=== PATIENT | female | born 1950 | race Caucasian/White ===

== ENCOUNTER 2024-02-13 10:29 | Outpatient (AMB) | payer MEDICARE, MEDICAID, SELFPAY ==
[2024-02-13 10:39] VITALS: BP 138/80; PULSE 70; TEMP 37; O2SAT 94; BMI 51.7
--- NOTE | 2024-02-13 10:39 | AM.OFFWIN_ITS ---
Intake Vital Signs 02/13/24 10:39 Height 5 ft 3 in Weight 292 lb BMI 51.7 BP 138/80 Blood Pressure Location Rt brachial Position Sitting Pulse 70 Pulse Source Pulse Oximeter Temp 98.6 F Temp Source Oral Pulse Oximetry (%) 94 Oxygen Delivery Method Room Air Intake Visit Reasons: EP Pain on her wrist Intake Note: pt c/o LT wrist pain. Started Tuesday Patient Tobacco Use Status: Former Tobacco user Allergies No Known Allergies Allergy (Verified 02/13/24 10:40) Do you need a note to return to daycare/school/sports/work: No HPI HPI Comments History of Present Illness Details Patient is a 73-year-old female complaining of left wrist pain. She states this started 2 days ago and is getting worse. She states the pain is worse when she tries to rest it or twist it in either direction, she also has associated weakness of the wrist. She states she has had carpal tunnel before and this is a different kind of pain, she does describe the pain as a sharp shooting pain. She states she has had open heart surgery and joint replacements and this pain is much worse. [facility] Social History Patient Tobacco Use Status: Former Tobacco user Review of Systems Const All systems reviewed & are unremarkable except as noted in HPI and below Physical Exam Vital Signs: Last Vital Signs Temp 98.6 F 02/13/24 10:39 Pulse 70 02/13/24 10:39 BP 138/80 02/13/24 10:39 Pulse Ox 94 02/13/24 10:39 Oxygen Delivery Method Room Air 02/13/24 10:39 BMI result Body Mass Index 51.7 Const General: cooperative, healthy appearing, comfortable, well developed and acute distress (Secondary to the pain in her wrist) mild Orientation/consciousness: patient oriented x3 Limitations: no limitations HEENT Head: Yes normal to inspection Ears: hearing grossly normal bilaterally General nose exam: Normal external nose present Face and sinus: Yes normal facial exam Eyes General: appearance normal, both eyes and all related structures Neck Neck: Yes normal visual inspection and Yes full ROM Resp Effort & Inspection: normal respiratory effort and able to speak in complete s entences Skin General skin exam: no rashes or lesions noted Neuro General: patient oriented x3 Extrem Left upper extremity: elbow/forearm Details: normal to inspection, normal ROM, ecchymosis (smll areas of ecchymosis and a few scabs throughout forearm, no signs of infection noted) and distal pulses intact; no tenderness, no swelling, no unusual warmth, no abrasions, no lacerations and no deformity, wrist medial Details: swelling Location: of the dorsal wrist, abnormal ROM Details: pain with active ROM Details: with extension, with flexion, with ABduction and with ADduction and pain with passive ROM Details: in extension, in flexion, in ABduction and in ADduction, radial pulse present, ulnar pulse present, Tinel's negative and Phalen's negative (Patient unable to perform due to pain); no unusual warmth, no abrasions, no lacerations, no ecchymosis and no deformity and hand (supervisor accounts receivable strength 3/5 ) Details: normal to inspection, normal capillary refill, neuromotor exam normal, neurosensory exam normal, tendon exam normal, vascular exam Details: normal capillary refill, normal ROM of fingers and no swelling; no tenderness Assessment & Plan Assessment & Plan (1) Pain and swelling of left wrist: Code(s): M25.532 - Pain in left wrist; M25.432 - Effusion, left wrist Plan: No indication for an x-ray. This does not appear to be carpal tunnel syndrome. Unclear of etiology of swelling, gave 20 mg of prednisone in office as patient was in extreme amount of pain with the swelling. Placed her in a wrist brace and we will send prednisone burst to her pharmacy. Instructed patient if the pain gets worse to go to the emergency room or to follow up with her PCP Plan see above Orders: Orders AMB Prednisone Adult Dose Today M25.432 - Effusion, left wrist, M25.532 - Pain in left wrist Medications: New prednisone 20 mg PO ONCE 1 tab 0RF wheezing M25.432 - Effusion, left wrist, M25.532 - Pain in left wrist prednisone 20 mg PO DAILY 4 tabs 0RF Coding Level of Care Code Est Pt Level 3 (30738) Diagnoses Pain and swelling of left wrist M25.532; M25.432
== END 2024-02-13 11:20 | disposition home or self-care (01) ==
PROVIDERS: Visit Provider Physician Assistant
DX: M25.532 Pain in left wrist (principal); M25.432 Effusion, left wrist

== ENCOUNTER → 2024-02-13 10:29 | Outpatient (BNVA) | payer MEDICARE, MEDICAID, SELFPAY | DX: G56.02 Carpal tunnel syndrome, left upper limb (principal); M25.532 Pain in left wrist; M25.432 Effusion, left wrist | CPT/HCPCS: 99212 ==

== ENCOUNTER 2025-03-19 10:26 | Outpatient (AMB) | payer OTHER, MEDICARE, SELFPAY ==
--- OUTSIDE RECORDS SUMMARY | 2025-03-19 10:35 | XMS_ITS | Encounter Summary ---
Author Organization [facility] Address [address] [place] [address] Care Team Providers Care Assembly Loader Name Role Phone [place] Geoffrey Bran Primary Care Provider [phone] Encounter Details Date Type Department Care Team (Late Contact Info) Description 03/19/2025 10:35 AM EDT Ancillary Procedure [facility] - [facility] [address] [facility] [address] [place] [address] Arrived Social History Tobacco Use Types Packs/Day Years Used Date Smoking Tobacco: Former Cigarettes Q uit: 05/23/1996 Smokeless Tobacco: Never Alcohol Use Standard Drinks/Week Comments Not Currently 0 (1 standard drink = 0.6 oz pur e alcohol) Interpersonal Safety Answer Date Record ed Physical Abuse Unrecognized value 07/24/2024 Verbal Abuse Unrecognized value 07/24/2024 Comments Unknown Sex and Gender Information Value Date Recorded Sex Assigned at Female 05/25/2024 12:23 PM EST Legal Sex Female 7:45 AM EST Gender Identity Female 05/25/2024 12:23 PM EST Sexual Orientation Straight 05/25/2024 12 :23 PM EST documented as of this encounter Plan of Treatment Upcoming Encounters Date Type Department Care Team (Late st Contact Info) Description 04/02/2025 8:00 AM EST Ancillary Procedure [facility] Cardiology [facility] - [facility] [address] [facility] [address] [place] [id number] 04/16/2025 9:15 AM EST Office Visit [facility] Hematology Oncology [address] [place] [address] Beckie Fuentes MD [address] [place] [address] 04/22/2025 8:10 AM EST Office Visit [facility] - [facility] [address] [place] [address] Jeremias Yu NP [address] [place] [address] [address] [place] [address] 09/11/2025 10:00 AM EDT Office Visit Pulmonology - [place] [address] [facility] [address] [place] [address] Nicky Bailey MD [address] [place] [phone] documented as of this encounter Procedures Procedure Name Priority Date/Time Associated Diagnosis Comments CARDIAC DEVICE CHECK- REMOTE- MURJ Routine 03/19/2025 10:33 AM EDT documented in this encounter Results * Cardiac device check - Remote- MURJ (03/19/2025 10:33 AM EDT) Date Time Interrogation Session [id number] CV DEVICE CHECK Type Interrogation Session Remote Scheduled CV DEVICE CHECK Implantable Pulse Generator Grape [place] CV DEVICE CHECK Implantable Pulse Generator Type IPG CV DEVICE CHECK Implantable Pulse Generator Model 2272 Assurity MRI(TM) CV DEVICE CHECK Implantable Pulse Generator Serial Number [id number] CV DEVICE CHECK Implantable Pulse Generator Implant Date 20161101 CV DEVICE CHECK Battery Remaining Percentage 22.00 CV DEVICE CHECK Battery Remaining Longevity 26.0 CV DEVICE CHECK Battery Voltage 2.920 CV D EVICE CHECK Battery [employer] Trigger 2.600 CV DEVICE CHECK Battery Status Middle of Service CV DEVICE CHECK Georgi Statistic RA Percent Paced 80.00 CV DEVICE CHECK Georgi Statistic RV Percent Paced 1.00 CV DEVICE CHECK Atrial Tachy Statistic AT/AF [place] Percent 3.00 CV DEVICE CHECK Lead Channel Sensing Intrinsic Amplitude 2.300 CV DEVICE CHECK Lead Channel Setting Sensing Sensitivity 0.30 CV DEVICE CHECK Lead Channel Impedance Value 390 CV DEVICE CHECK Lead Channel Pacing Threshold Amplitude 0.500 CV DEVICE CHECK Lead Channel Pacing Threshold Pulse Width 0.5 CV DEVICE CHECK Lead Channel RA Pacing Threshold Date 2025-03-12 CV DEVICE CHECK Lead Channel Setting Pacing Amplitude 1.500 CV DEVICE CHECK Lead Channel Setting Pacing Pulse Width 0.5 CV DEVICE CHECK Lead Channel Sensing Intrinsic Amplitude 12.000 CV DEVICE CHECK Lead Channel Setting Sensing Sensitivity 2.00 CV DEVICE CHECK Lead Channel Impedance Value 480 CV DEVICE CHECK Lead Channel Pacing Threshold Amplitude 1.000 CV DEVICE CHECK Lead Channel Pacing Threshold Pulse Width 0.5 CV DEVICE CHECK Lead Channel RV Pacing Threshold Date 2025-03-12 CV DEVICE CHECK Lead Channel Setting Pacing Amplitude 1.250 CV DEVICE CHECK Lead Channel Setting Pacing Pulse Width 0.5 CV DEVICE CHECK Georgi Setting Mode (NBG Code) DDDR CV DEVICE CHECK Georgi Setting Lower Rate Limit 60 CV DEVICE CHECK Georgi Setting AT Mode Switch Rate 180 CV DEVICE CHECK Georgi Setting Maximum Tracking Rate 120 CV DEVICE CHECK Georgi Setting Maximum Sensor Rate 120 CV DEVICE CHECK Georgi Setting PAV Delay 180 CV DEVICE CHECK Georgi Setting RIKKI Delay 150 CV DEVICE CHECK Date of Service 2025-03-28 CV DEVICE CHECK Anatomical Region Laterality Modality Device Interroga tion 03/12/2025 2:00 AM EDT Impressions 03/19/2025 10:31 AM EDT Normal Remote: No Events * Normal Device Function * Alerts or events: None * Battery: Battery is at 22%, 2.17 yrs * Sensing, impedance and thresholds reviewed * Programmed parameters reviewed * Presenting rhythm reviewed * Heart Rate Histograms reviewed * No significant changes noted Tachycardia: Mode Switch * Device High Atrial Rate event(s) triggered: 1 ongoing episode since 03/09/25 * AT/AF [place]: 3% Additional Notes: *Meds include Eliquis / Rate controlled Narrative Procedure Note Yessica Moore PA - 03/19/2025 IMPRESSION: Normal Remote: No Events * Normal Device Function * Alerts or events: None * Battery: Battery is at 22%, 2.17 yrs * Sensing, impedance and thresholds reviewed * Programmed parameters reviewed * Presenting rhythm reviewed * Heart Rate Histograms reviewed * No significant changes noted Tachycardia: Mode Switch * Device High Atrial Rate event(s) triggered: 1 ongoing episode since03/09/25 * AT/AF [place]: 3% Additional Notes: *Meds include Eliquis / Rate controlled Yessica VERMA CV IMPLANTABLE CARDIAC DEVICE [place] OCEDURES Final Result documented in this encounter Visit Diagnoses Not on filedocumented in this encounter Care Teams Assembly Loader Relationship Specialty Start Date End Date Geoffrey Parekh DO [address] [place] [address] PCP - General Family Medicine 10/24/24 documented as of this encounter
--- NOTE | 2025-03-19 10:44 | A.OFFVIS_ITS ---
Intake Visit Reasons: 6m AD Accompanied by: Friend Allergies No Known Allergies Allergy (Verified 03/19/25 10:51) Medication List - Last Reconciled 03/19/25 by Vivian Fountain CNP amiodarone 200 mg PO DAILY apixaban (Eliquis) 5 mg PO BID bisacodyl (Laxative (bisacodyl)) 10 mg PO PRN dapagliflozin propanediol (Farxiga) 5 mg PO DAILY diazepam 5 - 10 mg PO BEDTIME PRN dorzolamide 2% drps ophthalmic (eye) duloxetine 30 mg PO BID ferrous sulfate (FeroSul) 325 mg PO BID furosemide 20 mg PO DAILY isosorbide mononitrate ER mg PO BID levothyroxine 88 mcg PO DAILY lisinopril 40 mg PO DAILY memantine 10 mg PO BID 90 days metoprolol succinate ER 25 mg PO DAILY mirabegron ER (Myrbetriq) 50 mg PO DAILY mupirocin 2% 1 appl topical BID-TID omeprazole 40 mg PO BID potassium chloride ER 10 mEq PO DAILY pregabalin 75 mg PO DAILY rosuvastatin 20 mg PO DAILY travoprost 0.004% 1 drp ophthalmic (eye) BEDTIME trazodone 50 - 150 mg PO BEDTIME PRN HPI Comments Details: 74-year-old woman with h/o PTSD, obesity, [place] on nighttime oxygen and CPAP, A f ib s/p cardioversion x5 between 05/2023-05/2024 and cardiac ablation on 07/18/2024, pacemaker, HTN, migraine, and mild dementia. She was here with her long-time friend (Kala). Memory was not so good, more forgetful. Medications were being managed by [facility]. She was driving locally with her friend without issue. She was having more shakiness in her hands and jaw. Handwriting was not so neat. No functional impairment. No difficulty eating or drinking. Headaches were okay, relieved by Tylenol as needed. Walking with walker, no falls. Mood was okay. Sleep was okay, using CPAP. Needs continuous O2 2L, but did not have today as she was waiting for portable oxygen. [facility] Social History Patient Tobacco Use Status: Former Tobacco user Review of Systems Const Denies chills, Denies daytime sleepiness, Denies difficulty sleeping, Denies fatigue, Denies fever(s), Denies frequent falls, Denies headache(s), Denies increased appetite, Denies poor appetite, Denies snoring, Denies weakness, Denies weight gain and Denies weight loss Eyes Denies loss of vision ENT Denies vertigo, Denies dizziness and Denies headache(s) Card Denies chest pain at rest, Denies chest pain with activity, Denies syncope, Denies leg edema and Denies palpitations Resp Denies snoring GI Denies constipation, Denies heartburn, Denies diarrhea and Denies nausea Denies urinary frequency, Denies urinary incontinence and Denies urinary urgency Musc Denies abnormal gait, Denies numbness and Denies tingling Skin/Breast Denies dry skin and Denies rash Neuro Denies abnormal gait, Denies vertigo, Denies dizziness, Denies syncope, Denies frequent falls, Denies headache(s), Denies lack of coordination, Denies loss of vision, Reports memory loss, Denies numbness, Denies restless legs, Denies seizure-like activity, Denies tingling, Denies paresthesias, Reports tremor(s) and Denies weakness Psych Denies anxiety, Denies depression, Denies auditory hallucinations, Reports memory loss, Denies visual hallucinations and Denies suicidal ideation Endo Denies fatigue and Denies palpitations Physical Exam Const Other: General Appearance:? normal, in no acute distress. Skin:? no rashes, no significant birthmarks. Heart:? S1, S2 normal, no murmurs. Lungs:? clear anteriorly and posteriorly. Extremities:? no edema. Psych:? alert, cooperative with exam. Neuro Other: Mental Status:?Alert and awake with normal sp speech, fluency, comprehension, and affect. MMSE 29/30. Cranial Nerves:?Pupils are equal, round and reactive to light. External occular muscles are intact. Visual kellogg are full. Face is symmetrical. Facial sensations are normal. Tongue is midline. Palate elevates symmetrically. Shoulder shrugging is normal. Hearing to bedside conversation is normal. Sensory Exam:?....? Coordination:?No ataxia,?no titubation.? Gait Exam: With walker. Cerebellar Signs:?[id number] is okay. Extrapyramidal System:?No tremor, rigidity with normal facial expressions.? Pronator Drift:?Not present.? Involuntary Movements:?Mild head tremor and fine tremors of outstretched hands. Speech:?Normal.? Results Reviewed Results Reviewed: CT brain WO at [facility] in October 2019: mild MVD, especially left frontal EEG at office in Jan 2020: mild slowing EEG at office in October 2023: mild slowing with no evidence of seizure disorder Assessment & Plan Assessment & Plan (1) Mild dementia: Code(s): F03.A0 - Unspecified dementia, mild, without behavioral disturbance, psychotic disturbance, mood disturbance, and anxiety Category: Medical Qualifiers: Dementia type: unspecified type Dementia behavioral or psychological symptom: unspecified whether behavioral, psychotic, or mood disturbance or anxiety Qualified Code(s): F03.A0 - Unspecified dementia, mild, without behavioral disturbance, psychotic disturbance, mood disturbance, and anxiety Plan: Continue memantine 10mg 1 tablet twice a day. Stay physically and socially active, use walker. (2) Tremor: Code(s): R25.1 - Tremor, unspecified Category: Medical Plan: TSH level ordered. May be side effect of amiodarone. Treatment options discussed. No significant functional impairment and she was not interested in medication at this time. Follow up in 6 months or sooner if needed. (3) Insomnia: Code(s): G47.00 - Insomnia, unspecified Category: Medical Qualifiers: Insomnia type: unspecified Qualified Code(s): G47.00 - Insomnia, unspecified (4) Migraine: Code(s): G43.909 - Migraine, unspecified, not intractable, without status migrainosus Category: Medical Qualifiers: Migraine type: unspecified Status migrainosus presence: without status migrainosus Intractability: not intractable Qualified Code(s): G43.909 - Migraine, unspecified, not intractable, without status migrainosus Plan: No significant headaches. May continue Tylenol as needed. Plan . Orders: Orders TSH reflex Free T4 Today R25.1 - Tremor, unspecified Coding Level of Care Code Est Pt Level 4 (53850) Diagnoses Mild dementia, unspecified dementia type, unspecified whether behavioral, psychotic, or mood disturbance or anxiety F03.A0 Dementia type: unspecified type Dementia behavioral or psychological symptom: unspecified whether behavioral, psychotic, or mood disturbance or anxiety Tremor R25.1 Insomnia, unspecified type G47.00 Insomnia type: unspecified Migraine without status migrainosus, not intractable, unspecified migraine type G43.909 Migraine type: unspecified Status migrainosus presence: without status migrainosus Intractability: not intractable
--- OUTSIDE RECORDS SUMMARY | 2025-03-19 12:55 | XMS_ITS | Clinical Summary ---
Author Organization [facility] Address [address] [place] [address] Care Team Providers Care Clipper Machine Name Role Phone Geoffrey Parekh DO Primary Care Provider [phone] Allergies No known active allergies Medications Medication Sig Dispensed Refills Start Date End Date Status cetirizine (ZyrTEC) 10 MG tablet Take 1 tablet (10 mg total) by mouth daily. 0 Active diazePAM (VALIUM) tablet 5 mg Take 1 tablet (5 mg total) by mouth every 6 (six) hours as needed for anxiety. 0 Active dorzolamide (TRUSOPT) 2 % ophthalmic solution 1 drop 3 (three) times a day. 0 Active escitalopram (LEXAPRO) tablet 10 mg Take 1 tablet (10 mg total) by mouth daily. 0 Active [place]-3 Fatty Acids (FISH OIL) 1000 MG CAPS Take by mouth. 0 Active gabapentin (NEURONTIN) 300 MG capsule Take 1 capsule (300 mg total) by mouth 3 (three) times a day. 0 Active isosorbide mononitrate (IMDUR) 60 MG 24 hr tablet Take 1 tablet (60 mg total) by mouth daily. 0 Active levothyroxine (SYNTHROID, LEVOXYL) tablet 88 mcg Take 1 tablet (88 mcg total) by mouth every morning on an empty stomach. 0 Active lisinopril (PRINIVIL,ZESTRIL) tablet 20 mg Take 1 tablet (20 mg total) by mouth daily. 0 Active Multiple Vitamins-Minerals (MULTIVITAMIN ADULT PO) Take 1 tablet by mouth daily. 0 Active omeprazole (PriLOSEC) 40 MG capsule Take 1 capsule (40 mg total) by mouth daily. 0 Active rizatriptan (MAXALT) 10 MG tablet Take 1 tablet (10 mg total) by mouth as needed for migraine. May repeat in 2 hours if needed 0 Active rosuvastatin (CRESTOR) tablet 20 mg Take 1 tablet (20 mg total) by mouth daily. 0 Active travoprost, benzalkonium, (TRAVATAN) 0.004 % ophthalmic solution 1 drop every night at bedtime. 0 Active traZODone (DESYREL) 50 MG tablet Take 1 tablet (50 mg total) by mouth every night at bedtime. 0 Active Ascorbic Acid (VITAMIN C) 1000 MG tablet Take 1 tablet (1,000 mg total) by mouth daily. 0 Active memantine (NAMENDA) 10 MG tablet Take 1 tablet (10 mg total) by mouth 2 (two) times a day. 0 Active amiodarone (PACERONE) 200 MG tablet Take 1 tablet (200 mg total) by mouth daily. 0 Active FeroSul 325 (65 Fe) MG tablet TAKE 1 TABLET BY MOUTH EVERY MORNING WITH BREAKFAST 90 tablet 0 07/26/2023 Active Active Problems Problem Noted Date Diagnosed Date Dementia without behavioral disturbance 05/30/19 21 Fibromyalgia 11/22/2019 Gastroesophageal reflux disease 11/22/2019 Morbid obesity 11/03/2017 B12 deficiency 05/20/2017 Iron deficiency anemia due to chronic blood loss 08/19/2016 Obstructive sleep apnea 03/22/2014 Overview: Overview: cx pulmo 08/17/16 [facility] Polysomnogram: Date 05/12/2019; Wt 280#; BMI 50; SE 94%; SM 98%; REM 3%; RDI 7 (AHI 6), REM (RDI 8 - AHI 8), Central apneas 0; Obstructive apneas 3; Mixed apneas 0; hypopneas 44; RERAs 14; average oxygen saturation 90% (lowest 82% - with saturations <88% for 5% or more of study); PLMs 2. Prestudy ESS 3; 0/4 RLS symptoms. - Obstructive Sleep Apnea - mild; mostly hypopneas; without sleep related hypoventilation by 2019 polysomnogram. 07/05/2016 to 08/03/2016. CPAP@ 6-16/Average 14.5/Max 15.2. 93% compliant with using the machine for >4 hours/day. Average use is 8 hours a night with AHI 1.9. Social History Tobacco Use Types Packs/Day Years Used Date Smoking Tobacco: Former Smokeless Tobacco: Never Alcohol Use Standard Drinks/Week Comments No 0 (1 standard drink = 0.6 oz pur e alcohol) Sex and Gender Information Value Date Recorded Sex Assigned at Not on file Gender Identity Not on file Sexual Orientation Not on file Job Start Date Occupation Industry Not on file Not on file Not on file Last Filed Vital Signs Vital Sign Reading Time Taken Comments Blood Pressure 149/84 12/14/2023 9:00 AM EDT Pulse 73 12/14/2023 9:00 AM EDT Temperature 36.7 C (98 F) 12/14/2023 9:00 AM EDT Respiratory Rate - - Oxygen Saturation 95% 12/14/2023 9:00 AM EDT Inhaled Oxygen Concentration - - Weight 128.8 kg (284 lb) 12/14/2023 9:00 AM EDT Height 160 cm (5' 3 ) 05/30/2020 9:11 AM EST Body Mass Index 50.31 05/30/2020 9:11 AM EST Plan of Treatment Health Maintenance Due Date Last Done Comments Hepatitis C Screening 1949 Depression Screening 1961 Preventative Health Evaluation 1967 Colon Cancer Screening (Colonoscopy) 1994 Fall Risk Assessment 2014 Osteoporosis Screening (DEXA Scan) 2014 RSV Adult > 60+ Yrs or (1 - 1-dose 75+ series) 2024 COVID-19 Vaccine ( - season) 2025 02/24/2023 Influenza Vaccine (#1) 2025 3, 01/27/2022, 01/30/2021, Additional history exists DTap / Tdap / Td (3 - Td or Tdap) 01/23/2030 01/24/2020, 10/17/2012, 05/25/2004 Pneumococcal Vaccine Completed 01/24/2020, 11/28/2017, 09/27/2007 Shingrix-Zoster Vaccine Completed 03/24/2020, 01/23 Hepatitis B Vaccines Aged Out No long er eligible based on patient's age to complete this topic RSV Ped < 20 months Aged Out No longe r eligible based on patient's age to complete this topic Care Teams Clipper Machine Relationship Specialty Start Date End Date Geoffrey Parekh DO [address] [place] [id number] PCP - General Family Medicine 03/16/23
--- OUTSIDE RECORDS SUMMARY | 2025-03-19 12:55 | XMS_ITS | Clinical Summary ---
Author Organization [facility] Address [address] [place] [address] Phone Care Team Providers Care Evaporative Cooler Installer Name Role Phone Geoffrey Parekh DO Primary Care Provider [phone] Allergies No known active allergies Medications cetirizine (ZyrTEC) 10 mg tablet Take 1 tablet (10 mg total) by mouth daily. Active diazePAM (VALIUM) 5 mg tablet Take 1 tablet (5 mg total) by mouth every 6 (six) hours as needed for anxiety. Active dorzolamide (TRUSOPT) 2 % ophthalmic solution 1 drop 3 (three) times a day. Active ferrous sulfate 325 mg (65 mg elemental iron) tablet TAKE 1 TABLET BY MOUTH EVERY MORNING WITH BREAKFAST 4 Active levothyroxine (SYNTHROID, LEVOTHROID) 88 mcg tablet Take 1 tablet (88 mcg total) by mouth every morning on an empty stomach. Active memantine (NAMENDA) 10 mg tablet Take 1 tablet (10 mg total) by mouth 2 (two) times a day. Active omega-3 fatty acids 1,000 mg capsule Take by mouth. Activ e omeprazole (PriLOSEC) [address] capsule Take 1 capsule (40 mg total) by mouth daily. Active rizatriptan (MAXALT) 10 mg tablet Take 1 tablet (10 mg total) by mouth as needed for migraine. May repeat in 2 hours if needed Active rosuvastatin (CRESTOR) 20 mg tablet Take 1 tablet (20 mg total) by mouth daily. Active travoprost (TRAVATAN Z) 0.004 % drops 1 drop every night at bedtime. Active traZODone (DESYREL) 50 mg tablet Take 1 tablet (50 mg total) by mouth every night at bedtime. Active apixaban (ELIQUIS) 5 mg tablet Take 1 tablet (5 mg total) by mouth 2 (two) times a day. Active DULoxetine (CYMBALTA) [address] capsule Take 1 capsule (30 mg total) by mouth 2 (two) times a day. Do not crush or chew. Active potassium chloride (KLOR-CON M10) 10 mEq CR tablet Take 1 tablet (10 mEq total) by mouth 2 (two) times a day. Tablet may be swallowed whole (do not crush/chew/suc k on) OR broken in half and each half swallowed separately OR dissolved (whole tablet) in ~4 ounces of water (allow ~2 minutes to dissolve, stir well and administer immediately). Active metoprolol succinate (TOPROL-XL) 50 mg 24 hr tabletIndications :Coronary artery disease involving diomede coronary artery of diomede heart without angina pectoris,Pacemake r,Persistent atrial fibrillation (CMS/HCC V24, CMS/HCC V28),Chronic diastolic congestive heart failure (CMS/HCC V24, CMS/HCC V28) Take 1 tablet (50 mg total) by mouth 1 (one) time each day. Do not crush or chew. 90 tablet 3 5 06/04/19 26 Active spironolactone (ALDACTONE) 25 mg tablet Take 1 tablet (25 mg total) by mouth 1 (one) time each day. 30 each 5 Active dapagliflozin propanediol (Farxiga) 5 mg tablet TAKE 1 TABLET BY MOUTH DAILY 90 tablet 1 5 Active amiodarone (PACERONE) 200 mg tablet Take 1 tablet (200 mg total) by mouth 1 (one) time each day. 90 tablet 1 5 Active isosorbide mononitrate (IMDUR) 60 mg 24 hr tablet Take 1 tablet (60 mg total) by mouth 1 (one) time each day. Do not crush or chew. 90 tablet 2 5 Active furosemide (LASIX) 20 mg tablet Take 2 tablets (40 mg total) by mouth 1 (one) time each day. 180 tablet 2 Active nitroglycerin (NITROSTAT) 0.[address] 1 tablet (0.4 mg total) under the tongue every 5 (five) minutes if needed for chest pain. 100 tablet 1 5 Active Active Problems Problem Noted Date Diagnosed Date Acute UTI 11/29/2024 Benzodiazepine dependence ([facility] V24, [facility] V28) 11/29/2024 Colon polyp 11/29/2024 Dysuria 11/29/2024 Greater trochanteric bursitis of left hip 2024 Hypokalemia 11/29/2024 Left wrist pain 11/29/2024 Osteopenia 11/29/2024 Rhinitis 11/29/2024 Pulmonary hypertension ([facility] V24, [facility] V28 ) 10/17/2024 (HFpEF) heart failure with p reserved ejection fraction ([facility] V24, [facility] V28) 08/13/2024 Overview (10/30/2024): September 2024- Echocardiogram showed the left ventricle is normal in size, wall thickness and systolic function. The ejection fraction is 65-70%. No regional wall motion abnormalities seen. Normal diastolic function. The right ventricle is normal in size and function. No significant valve disease. Assessment & Plan (10/30/2024 12:19 PM EDT): Echocardiogram from September 2024 showed preserved LV systolic function and no diastolic dysfunction. Compensated on exam. Continue with dapagliflozin, furosemide, isosorbide mononitrate and metoprolol. Consider switching Metoprolol to propranolol if essential tremor becomes limiting for the patient. We reviewed heart failure management including low-sodium diet, symptom surveillance, daily weights and medication compliance. Orders: Hospital bed Lower extremity cellulitis 08/13/2024 Class 3 severe obesity with body mass index (BMI) of 50.0 to 59.9 in adult ([facility] V24, [facility] V28) 08/13/2024 Mixed hyperlipidemia 08/13/2024 Stage 3a chronic kidney dise ase (CKD) ([facility] V24, [facility] V28) 08/13/2024 Dyspnea, unspecified type 07/24/2024 Acute CHF (CMS/HCC V24, CMS/HCC V28) 07/23/2024 Hip pain 07/02/2024 PAC (premature atrial contraction) 07/02/2024 Right shoulder pain 07/02/2024 Multiple joint pain 06/29/2024 A-fib (CMS/HCC V24, CMS/HCC V28) 06/19/2024 Diaphoresis 04/04/2024 Fatigue 04/04/2024 Groin abscess 04/04/2024 Low back pain 04/04/2024 CRISTIN (generalized anxiety disorder) 04/03/2024 S/P CABG (coronary artery bypass graft) 04/03/20 IFG (impaired fasting glucose) 04/03/2024 Intention tremor 04/03/2024 Rash 04/03/2024 Status cardiac pacemaker 04/03/2024 Varicose veins of both lower extremities 024 CAD (coronary artery disease) 02/29/2024 Overview (06/01/2024): 1997 - coronary artery disease status post four-vessel coronary artery bypass with VERNON to LAD, ROBERT to PDA, SVG to OM1 and SVG to OM 2 2015 - negative exercise Nuclear stress test 2021 - negative Regadenoson Nuclear stress test Assessment & Plan (10/30/2024 12:19 PM EDT): Last Nuclear stress test was negative. Echocardiogram from September 2024 showed ejection fraction 60-65% with no wall motion abnormalities. No anginal symptoms. Continue with aspirin, metoprolol, dapagliflozin, isosorbide, furosemide, spironolactone, fish oil and rosuvastatin. We discussed risk reduction through lifestyle choices including healthy diet, routine exercise and weight management. Orders: Hospital bed Assessment & Plan (06/17/2024 12:21 AM EST): Assessment & Plan (06/01/2024 1:54 PM EST): CABG in 1997. Last Nuclear stress test in 2021 was with normal perfusion. Echocardiogram from July 2023 showed preserved LV systolic function LVEF 55- 65%. No anginal symptoms. Continue with apixaban, rosuvastatin, increased dose of metoprolol, furosemide, dapagliflozin, and isosorbide mononitrate. We discussed risk reduction through lifestyle choices including healthy diet, routine exercise and weight management. Orders: Transthoracic echocardiogram (TTE) complete with PRN contrast, bubble, strain, and 3D order panel; Future perflutren lipid microsphere (DEFINITY) 1.3 mL in sodium chloride 0.9% 8.7 mL injection metoprolol succinate (TOPROL-XL) 50 mg 24 hr tablet; Take 1 tablet (50 mg total) by mouth 1 (one) time each day. Do not crush or chew. Essential hypertension, benign 02/29/2024 Assessment & Plan (10/30/2024 11:12 AM EDT): Controlled. Continue with furosemide, isosorbide mononitrate and metoprolol. Assessment & Plan (06/01/2024 1:54 PM EST): Controlled. Continue with furosemide, isosorbide mononitrate and metoprolol. High cholesterol 02/29/2024 Assessment & Plan (06/01/2024 1:54 PM EST): September 2022 - LDL 71. Continue with rosuvastatin. Hypothyroid 02/29/2024 Migraines 02/29/2024 Pacemaker 02/29/2024 Overview (05/31/2024): [employer] MRI compatible dual chamber pacemaker secondary to symptomatic bradycardia - mri compatabile Assessment & Plan (10/30/2024 11:12 AM EDT): Functioning well. Last device check reviewed. Continue with device clinic monitoring protocol. Orders: Hospital bed Assessment & Plan (06/01/2024 1:54 PM EST): Pacemaker working well on last device check from early May 2024. [facility]. Orders: metoprolol succinate (TOPROL-XL) 50 mg 24 hr tablet; Take 1 tablet (50 mg total) by mouth 1 (one) time each day. Do not crush or chew. GERD (gastroesophageal reflux disease) Chronic diastolic congestive heart failure (CMS/HCC V24, CMS/HCC V28) 11/16/2022 Overview (10/30/2024): September 2024- Echocardiogram showed the left ventricle is normal in size, wall thickness and systolic function. The ejection fraction is 65-70%. No regional wall motion abnormalities seen. Normal diastolic function. The right ventricle is normal in size and function. No significant valve disease. Assessment & Plan (06/17/2024 12:21 AM EST): Assessment & Plan (06/01/2024 1:54 PM EST): Echocardiogram from July 2023 showed preserved LV systolic function and no diastolic dysfunction. Aside from lower extremity edema, she appears compensated on exam. Edema likely secondary to venous insufficiency. Continue with dapagliflozin, furosemide, isosorbide mononitrate and metoprolol. Consider adding Entresto in future with continued breathlessness and elevated blood pressures. Patient reports feeling better on higher doses of amiodarone. I suspect she responded to the lower heart rates and therefore I will trial her on a higher dose of metoprolol. We will update the echocardiogram. We reviewed heart failure management including low-sodium diet, symptom surveillance, daily weights and medication compliance. Orders: metoprolol succinate (TOPROL-XL) 50 mg 24 hr tablet; Take 1 tablet (50 mg total) by mouth 1 (one) time each day. Do not crush or chew. Atrial fibrillation (CMS/HCC V24, CMS/HCC V28) 0 11/08/2022 Overview (10/30/2024): October 2022 - FORD cardioversion with recurrent atrial fibrillation status post repeat cardioversion with initiation of Amiodarone June 2024- underwent Afib ablation with PVI September 2024- Echo showed the left atrium is mildly dilated Assessment & Plan (10/30/2024 12:19 PM EDT): Persistent atrial fibrillation status post ablation. Symptomatic. CHADSVASc - 6. Continue eliquis, metoprolol, and amiodarone. Consider switching Metoprolol to propranolol if essential tremor becomes limiting for the patient. Orders: Hospital bed Assessment & Plan (06/17/2024 12:21 AM EST): Orders: ECG 12 lead Assessment & Plan (06/01/2024 1:54 PM EST): Paroxysmal atrial fibrillation. Symptomatic. CHADSVASc - 6. Continue with metoprolol and apixaban. Recent repeat cardioversion and now on amiodarone 200mg daily. Seen by Dr. Collier and now awaiting ablation. Orders: Transthoracic echocardiogram (TTE) complete with PRN contrast, bubble, strain, and 3D order panel; Future perflutren lipid microsphere (DEFINITY) 1.3 mL in sodium chloride 0.9% 8.7 mL injection metoprolol succinate (TOPROL-XL) 50 mg 24 hr tablet; Take 1 tablet (50 mg total) by mouth 1 (one) time each day. Do not crush or chew. Glaucoma 06/17/2022 Insomnia 06/17/2022 OAB (overactive bladder) 05/04/2021 Overview (02/29/2024): Dr. Henning Prediabetes 05/04/2021 Mild dementia ([facility] V24, [facility] V28) 021 Overview (02/29/2024): Dr. Bernard Dementia without behavioral disturbance ([facility] V24, [facility] V28) 05/30/2020 Fibromyalgia 11/22/2019 Gastroesophageal reflux disease 11/22/2019 Morbid obesity ([facility] V24, [facility] V28) 2017 Assessment & Plan (06/01/2024 1:54 PM EST): BMI 53.77 - in future we should consider GLP1. Bilateral carpal tunnel syndrome 08/22/2017 Overview (02/29/2024): 08/22/2017 - bilateral depo-medrol 20 mg injections Hiatal hernia 08/01/2017 B12 deficiency 05/20/2017 Iron deficiency anemia due to chronic blood loss 08/19/2016 Generalized osteoarthritis 02/20/2015 Obstructive sleep apnea 03/22/2014 Overview (02/09/2024): cx pulmo 08/17/16 [facility] Polysomnogram: Date 05/12/2019; Wt 280#; BMI 50; [...] 8 hours a night with AHI 1.9. Obstructive sleep apnea 03/22/2014 Overview (02/29/2024): UNTREATED (Apr 2021, FEB 2022) cx pulmo 08/17/16 [facility] Polysomnogram: Date 05/12/2019; Wt 280#; BMI 50; [...] 8 hours a night with AHI 1.9. Anxiety 10/23/2013 Resolved Problems Problem Noted Date Diagnosed Date Resolved Date Acute on chronic heart failu re with preserved ejection fraction (CMS/HCC V24, CMS/HCC V28) 10/26/2023 06/01/2024 Diastolic dysfunction 06/17/20222024 Encounters Date Type Department Care Team Description 03/19/2025 10:35 AM EDT Ancillary Procedure [facility] [address] [place] [phone] Arrived 03/18/2025 Telephone [facility] [address] [place] [address] Fabio Forman MD 03/14/2025 Telephone [facility] [address] [facility] [address] [place] [address] Jeremias Yu NP 03/13/2025 10:45 AM EDT Office Visit Pulmonology - [place] [address] [place] [phone] Nicky Bailey MD Hypoxemia (Primary Dx); Chronic a-fib (CMS/HCC V24, CMS/HCC V28); Morbid obesity (CMS/HCC V24, CMS/HCC V28); Essential hypertension, benign 03/12/2025 11:35 AM EDT Ancillary Procedure [facility] - [address] [place] [phone] 03/12/2025 Telephone [facility] - [address] [place] [phone] Rochelle Pedro NP 03/01/2025 Telephone [facility] [address] [place] [address] Fabio Forman MD 02/25/2025 Results Follow-Up [facility] [address] [place] [address] Jeremias Yu NP 02/20/2025 Telephone [facility] [address] [place] [phone] Fabio Forman MD 01/31/2025 Telephone [facility] [address] [place] [phone] Jeremias Yu NP 01/16/2025 Telephone [facility] [address] [place] [phone] Fabio Forman MD 12/20/2024 6:15 AM EDT Ancillary Procedure [facility] - [address] [place] [phone] 12/18/2024 Telephone Pulmonology - [place] [address] [place] [phone] Nicky Bailey MD from Last 3 Months Immunizations Immunization Administration Dates Next Due Influenza trivalent, 0.5mL ( Fluzone High-dose) 65yo and older 02/24/2023,01/27/2022,01/30/2021,02/28,01/26/2017 Influenza trivalent, 0.5mL, preservative free (Fluarix; FluLaval; Fluzone) ages 6mo and older (Afluria) 3 years and older 01/24/2020,01/27/2016 Influenza trivalent, with pr eservative (Fluzone; Afluria) 6mo and older 02/23/2015,02/09/2014,04/29/2006 Influenza, Unspecified 02/24/2023,03/07/2007 Moderna Covid-19 Bivalent, O riginal + Ba.1 (Non-US Tradename Spikevax Bivalent) 02/19/2022 Moderna SARS-CoV-2 COVID-19, mRNA, LNP-S, preservative free 07/25/2020,06/27/2020 Pfizer Covid-19 Bivalent, Or iginal + Ba.1 (Non-US Trademark COMIRNATY Bivalent) 02/19/2022 Pfizer SARS-CoV-2 COVID-19, mRNA, LNP-S, preservative free 02/24/2023 Pneumococcal conjugate 13 va lent (Prevnar 13, PCV13) 2mo and older 11/28/2017 Pneumococcal polysaccharide 23 valent (Pneumovax 23) 2yo and older 01/24/2020,09/27/2007 Td Tetanus diptheria (Tdvax) 7yo and older 05/25/2004 Tdap Tetanus diptheria acell ular pertussis (Boostrix; Adacel) 7yo and older 01/24/2020,10/17/2012 Zoster Live 10/01/2011 Zoster recombinant (Shingrix ) 19yo and older 03/24/2020,01/24/2020 Surgical History Surgery Date Site/Laterality Comments TOTAL KNEE ARTHROPLASTY PROCEDURE: HISTORICAL TOTAL KNEE REPLACE OTHER SURGICAL HISTORY 1975 PROCEDURE: HISTORICAL VAGINAL HYSTERECTOMY WITH BSO; COMMENT: DAVID CORONARY ARTERY BYPASS GRAFT PROCEDURE: HISTORICAL CABG CARPAL TUNNEL RELEASE Bilateral PROCEDURE: HISTORICAL CARPAL TUNNEL REL COLONOSCOPY 07/25/15 [facility] PROCEDURE: HISTORICAL COLONOSCOPY; COMMENT: hemorrhoids and end-to-side ileo ascending anastomosis; repeat in 10 yrs ESOPHAGOGASTRODUODENOSCOPY 10/11/17 [facility] PROCEDURE: TX EGD TRANSORAL BIOPSY SINGLE/MULTIPLE; COMMENT: Single duodenal AVM; mild gastritis; 10 cm HH.Normal duodenal biopsies; Normal gastric biopsies ABLATION OF DYSRHYTHMIC FOCUS DONE ON 07/18/24 w/ SR AT [facility]. Medical History Medical History Date Comments CAD (coronary artery disease) DX :CAD (coronary artery disease); COMMENT: cabg x 4 ; Dr. Forman Hypothyroid DX:Hypothyroid Essential hypertension, benign D X:Essential hypertension, benign Migraines DX:Migraines Fibromyalgia DX:Fibromyalgia High cholesterol DX:High cholest josé miguel Depression DX:Depression History of other specified c onditions presenting hazards to health DX:History of other speci fied conditions presenting hazards to health; COMMENT: cervical ca History of colonoscopy 2015 DX:Histor y of colonoscopy Normocytic anemia DX:Normocytic anemia Dyslipidemia DX:Dyslipidemia SSS (sick sinus syndrome) (C MS/HCC V24, CMS/HCC V28) DX:SSS (sick sinus syndrome) (HCC) Pacemaker DX:Pacemaker; CO MMENT: mri compatabile Hiatal hernia 06/17/2017 DX:Hiatal hernia ; COMMENT: mod to large History of endoscopy 10/11/2017 DX:History of endoscopy; COMMENT: muslu; small angiodysplastic lesion duodenum; large hiatal hernia; gastritis Snores 2017 DX:Snores; COMME NT: no susan CHF (congestive heart failur e) ([facility] [place] V24, [facility] V28) 11/16/2022 DX:CHF (congestive heart fa ilure) ([facility]) Dementia without behavioral disturbance ([facility] [place] V24, [facility] [place] V28) DX:Dementia without behavior al disturbance ([facility]) GERD (gastroesophageal reflu x disease) DX:GERD (gastroesophageal re flux disease) Atrial fibrillation ([facility] [place] V24, [facility] V28) Symptomatic bradycardia Hypertension Hyperlipidemia Morbid obesity ([facility] [place] V24, [facility] V28) Acute hypoxemic respiratory failure ([facility] [place] V24, [facility] [place] V28) Greater trochanteric bursiti s of left hip Groin abscess Angiodysplasia of colon Cognitive impairment Family History Medical History Relation Name Comments Lung cancer Brother Breast cancer Neg Hx Relation Name Status Comments Brother Social History Tobacco Use Types Packs/Day Years Used Date Smoking Tobacco: Former Cigarettes Q uit: 05/23/1996 Smokeless Tobacco: Never Tobacco Cessation:Counseling Given: Not Answered Alcohol Use Standard Drinks/Week Comments Not Currently [...] Orientation Straight 05/25/2024 12 :23 PM EST Obstetrics History Last Filed Vital Signs Vital Sign Reading Time Taken Comments Blood Pressure 141/70 03/13/2025 10:51 AM EDT Pulse 110 03/13/2025 10:51 AM EDT Temperature 36.1 C (97 F) 03/13/2025 10:51 AM EDT Respiratory Rate 20 03/13/2025 10:51 AM EDT Oxygen Saturation 92% 03/13/2025 10:51 AM EDT Inhaled Oxygen Concentration - - Weight 119 kg (263 lb) 03/13/2025 10:51 AM EDT Height 160 cm (5' 3 ) 03/13/2025 10:51 AM EDT Body Mass Index 46.59 03/13/2025 10:51 AM EDT Plan of Treatment Upcoming Encounters Date Type Department Care Team (Late st Contact Info) Description 04/02/2025 8:00 AM EST Ancillary Procedure [facility] [address] [facility] [address] [place] [phone] 04/16/2025 9:15 AM EST Office Visit [facility] Hematology Oncology [address] [place] [phone] Beckie Fuentes MD [address] [place] [address] 04/22/2025 8:10 AM EST Office Visit [facility] Cardiology [facility] [address] [facility] [address] [place] [address] Jeremias Yu NP [address] [place] [address] [address] [place] [phone] 09/11/2025 10:00 AM EDT Office Visit Pulmonology - [place] [address] [facility] [address] [place] [phone] Nicky Bailey MD [address] [place] [phone] Health Maintenance Due Date Last Done Comments Social Influencers of Health Screening 04/29/2022 Depression Screening 05/23/2024 Medicare Annual Wellness Visit 04/04/2025 04/04/2024 Falls Risk Assessment 07/26/2025 07/26/2024 COVID-19 Vaccine (8 - Moderna risk season) 2025 03/01/2025, 02/13/2024, 02/24/2023, Additional history exists Hypertension/CHF/CAD Annual BMP Blood Test 02/28/2026 02/28/2025, 02/21/2025, 11/19/2024, Additional history exists Cholesterol Screening (Lipid Panel) 10/21/2027 10/20/2022 DTaP,Tdap,and Td Vaccines (4 - Td or Tdap) 01/23/2030 01/24/2020, 10/17/2012, 05/25/2004 Osteoporosis Screening (Bone Density Screening) 09/03/2030 09/03/2020, 02/01/2018 Colorectal Cancer Screening: Colonoscopy 01/09/2034 01/10/2024 Hepatitis C Screening Completed 04/05/2016 Zoster Vaccines Completed 03/24/2020, 07/2019, 10/01/2011 Pneumococcal Vaccine: 50+ Years Completed 05/30/2023, 01/24/2020, 11/28/2017, Additional history exists RSV Immunization Adult Patients Completed 06/02/2023 Breast Cancer Screening Discontinued 01/02/20 24, 01/02/2024, 12/23/2022, Additional history exists Influenza Vaccine Completed 03/01/2025, , 02/24/2023, Additional history exists HIB Vaccines Aged Out No longer eligi ble based on patient's age to complete this topic HPV Vaccines Aged Out No longer eligi ble based on patient's age to complete this topic Hepatitis A Vaccines Aged Out No long er eligible based on patient's age to complete this topic Hepatitis B Vaccines Aged Out No long er eligible based on patient's age to complete this topic IPV Vaccines Aged Out No longer eligi ble based on patient's age to complete this topic MMR Vaccines Aged Out No longer eligi ble based on patient's age to complete this topic Meningococcal ACWY Vaccine Aged Out N o longer eligible based on patient's age to complete this topic Meningococcal B Vaccine Aged Out No l onger eligible based on patient's age to complete this topic RSV Immunization Patients Under 20 months Aged Out No longer eligible based on patient's age to complete this topic Varicella Vaccines Aged Out No longer eligible based on patient's age to complete this topic Medical Devices Implanted Type Area Sugar Cane Planter Machine Operator Device Identifier Shelf Expiration Date Model / Serial / Lot Cardiac Pacemaker-11/01 Implanted:10/21 by Dominique Collier MD (Quantity not on file) Cardiac Pacemaker Left: Chest [employer] CRMD++DNU+ABBT/ STJU ASSURITY 2272 / [id number] / Abbt-Stju Assurity Mri [id number] Implanted:10/21 (Quantity not on file) Cardiac Pacemaker [employer] MRI 2272 / [id number] / Abbt-Stju 2272 Assurity Mri(Tm) [id number] Implanted:10/21 (Quantity not on file) Cardiac Pacemaker [employer]ICAL 2272 ASSURITY MRI(TM) / [id number] / Device Clsur Vascade Mvp 6-12f Fem Art - [id number] - [id number] Implanted:Qty: 1 on 07/18/2024 by Dominique Collier MD at [place] [facility] Vascular Closure Devices N/A: Chest HAEMONETICS- CARDIVA MED ITEMS 03/08/2026 [id number] / [id number] / Plug Fem Artery Closure Vascade Mvp Collagen Ster - [id number] - [id number] Implanted:Qty: 1 on 07/18/2024 by Dominique Collier MD at [facility] Vascular Grafts N/A: Chest HAEMONETICS- CARDIVA MED ITEMS 03/14/2026 [id number] / [id number] / Procedures Procedure Name Priority Date/Time Associated Diagnosis Comments CARDIAC DEVICE CHECK- REMOTE- MURJ Routine 03/19/2025 10:33 AM EDT CARDIAC DEVICE CHECK- REMOTE- MURJ Routine 03/12/2025 11:31 AM EDT BASIC METABOLIC PANEL Routine 02/28/2025 9:01 AM EDT Atrial fibrillation, unspecified type (CMS/HCC V24, CMS/HCC V28) BASIC METABOLIC PANEL Routine 02/21/2025 9:34 AM EDT Acute on chronic heart failure with preserved ejection fraction (HFpEF) (CMS/HCC V24, CMS/HCC V28) CARDIAC DEVICE CHECK- REMOTE- MURJ Routine 12/20/2024 6:10 AM EDT HM COLONOSCOPY Routine 01/10/2024 SCREENING MAMMOGRAPHY BI 2-VIEW BREAST INC CAD Routine 01/02/2024 8:11 AM EDT Encounter for screening mammogram for malignant neoplasm of breast LIPID PANEL Routine 10/20/2022 DXA BONE DENSITY STUDY 1+ SITS AXIAL SKEL Routine 09/03/2020 9:34 AM EDT Other specified disorders of bone density and structure, unspecified site HEPATITIS C SCREENING Routine 04/05/2016 from Last 3 Months or Most Recently Relevant to Health Maintenance Results * Cardiac device check - Remote- MURJ (03/19/2025 10:33 AM EDT) Only the most recent of3 resultswithin the time period is included. Date Time Interrogation Session [id number] CV DEVICE CHECK Type Interrogation Session Remote Scheduled CV DEVICE CHECK Implantable Pulse Generator Sugar Cane Planter Machine Operator [place] CV DEVICE CHECK Implantable Pulse Generator Type IPG CV DEVICE CHECK Implantable Pulse Generator Model 2272 Assurity MRI(TM) CV DEVICE CHECK Implantable Pulse Generator Serial Number [id number] CV DEVICE CHECK Implantable Pulse Generator Implant Date 20161101 CV DEVICE CHECK Battery Remaining Percentage 22.00 CV DEVICE CHECK Battery Remaining Longevity 26.0 CV DEVICE CHECK Battery Voltage 2.920 CV D EVICE CHECK Battery OFFICE ASSISTANT RECEPTIONIST Trigger 2.600 CV DEVICE CHECK Battery Status Middle of Service CV DEVICE CHECK Georgi Statistic RA Percent Paced 80.00 CV DEVICE CHECK Georgi Statistic RV Percent Paced 1.00 CV DEVICE CHECK Atrial Tachy Statistic AT/AF [place] Percent 3.00 CV DEVICE CHECK Lead Channel [...] Setting PAV Delay 180 CV DEVICE CHECK Gerogi Setting RIKKI Delay 150 CV DEVICE CHECK [...] 1 ongoing episode since 03/09/25 * AT/AF [place]: 3% Additional Notes: *Meds include Eliquis / [...] triggered: 1 ongoing episode since03/09/25 * AT/AF [place]: 3% Additional Notes: *Meds include Eliquis / Rate controlled Yessica VERMA CV IMPLANTABLE CARDIAC DEVICE TX OCEDURES Final Result * (ABNORMAL) Basic metabolic panel (02/28/2025 9:01 AM EDT) Only the most recent of2 resultswithin the time period is included. Glucose 107(H) 70 - 99 mg/dL [facility] 1 Blood Urea Nitrogen (BUN) 11 8 - 27 mg/dL [facility] 1 Creatinine 0.89 0.57 - 1.00 mg/dL [facility] 1 eGFR 68 >59 mL/min/1.7 3 [facility] 1 BUN/Creatinine Ratio 12 12 - 28 [facility] 1 Sodium 145(H) 134 - 144 mmol/L [facility] 1 Potassium 4.3 3.5 - 5.2 mmol/L [facility] 1 Chloride 101 96 - 106 mmol/L [facility] 1 Carbon Dioxide 29 20 - 29 mmol/L [facility] 1 Calcium 9.8 8.7 - 10.3 mg/dL [facility] 1 Blood Venous blood specimen / Unknown 02/28/2025 9:01 AM EDT 02/28/2025 Narrative [facility] 1 - 03/01/2025 1:06 AM EDT Performed at: [address] [facility] [address] [id number] [place] Spreader: Geri Turk MD, Phone: [phone] Jeremias Yu CHILD NUTRITION MANAGER LAB BLOOD ORDERABLES Final Result [facility] 1 * Colonoscopy (01/10/2024) Pathologist [facility] Colonoscopy no interpretation , abstracted Anatomical Region Laterality Modality Other Historical Provider HEALTH MAINTENANCE Final Result * SCREENING MAMMOGRAPHY BI 2-VIEW BREAST INC CAD (01/02/2024 8:11 AM EDT) Anatomical Region Laterality Modality Radiographic Joyce ging 12/23/2022 8:06 AM EDT Narrative 01/02/2024 5:59 PM EDT This is a summary report. The complete report is available in the patient's medical record. If you cannot access the medical record, please contact the sending organization for a detailed fax or copy. Exam: Screening mammogram Findings: Digital bilateral full-field screening mammography is performed with tomosynthesis and interpreted with the aid of computer-aided detection. Comparison is made with 12/23/2022 and as far back as 09/03/2020. Breast parenchyma is composed of scattered fibroglandular densities. No new suspicious mass, architectural distortion, or suspicious calcifications. Impression: No mammographic evidence of malignancy. BI-RADS 1 - negative Procedure Note Christina Quesada MD - 03/07/2024 This is a summary report. The complete report is available in thepatient's medical record. If you cannot access the medical record, pleasecontact the sending organization for a detailed fax or copy. Exam: Screening mammogram Findings: Digital bilateral full-field screening mammography is performedwith tomosynthesis and interpreted with the aid of computer-aideddetection. Comparison is made with 12/23/2022 and as far back as09/03/2020. Breast parenchyma is composed of scattered fibroglandular densities. Nonew suspicious mass, architectural distortion, or suspiciouscalcifications. Impression: No mammographic evidence of malignancy. BI-RADS 1 - negative Adriana Sewell MD IMG XR PROCEDURES Final Result * (ABNORMAL) Lipid panel (10/20/2022) LDL/HDL Ratio 3 0 - 4 Triglycerides 159(A) 0 - 150 mg/dL Cholesterol 163 0 - 200 mg/dL HDL 61 >=40 mg/dL LDL Cholesterol 71 0 - 100 mg/dL Blood Venous blood specimen / Unknown Historical Provider LAB BLOOD ORDERABLES Deedee l Result * DXA BONE DENSITY STUDY 1+ SITS AXIAL SKEL (09/03/2020 9:34 AM EDT) Anatomical Region Laterality Modality Bone Densitometr y 02/12/2020 10:1 8 AM EDT Narrative 09/03/2020 1:49 PM EDT BONE DENSITY (DEXA) Lumbar Spine T-score is 0.3. (SD relative to 20-29 y/o adult) Z-score is 2.5. (SD relative to age matched peers) This is considered normal by WHO criteria. Left Hip T-score is -1.5. Z-score is 0.3. This is considered osteopenia by WHO criteria. IMPRESSION: This patient is considered to have osteopenia by WHO criteria. This patient has a 13% risk of major osteoporotic fracture and a 1.7% risk of hip fracture over the next 10 years. (World Health Organization Fracture Risk Assessment) [facility] Department of Internal Medicine recommends using National Osteoporosis Foundation (NOF) guidelines in treatment decisions related to osteoporosis. NOF guidelines suggest considering treatment for postmenopausal women and men aged 50 or older presenting with the following: History of hip or vertebral fracture. T-score = -2.5 (DXA) at the femoral neck, total hip, or spine, after appropriate evaluation to exclude secondary causes. Low bone mass (T-score between -1.0 and -2.5 at the femoral neck or spine) AND a 10-year probability of a hip fracture = 3% OR a 10-year probability of a major osteoporosis-related fracture = 20% based on the [place]-adapted WHO algorithm Please note that all treatment decisions require clinical judgment and consideration of individual patient factors, including patient preferences, co-morbidities, previous drug use, risk factors not captured in the FRAX model (e.g., frailty, falls, vitamin D deficiency, increased bone turnover, interval significant decline in bone density) and possible under- or over-estimation of fracture risk by FRAX. Optional alternative screening schedule based on fredi Navarro., [facility] June 10, 2011 for patients with osteopenia (based on hip BMD T-score) is as follows: * advanced osteopenia (T scores -2.00 to -2.49), BMD testing every year * moderate osteopenia (T scores -1.50 to -1.99), BMD testing every 5 years mild osteopenia or normal BMD (T scores -1.50 and higher), BMD testing every 15 years Procedure Note Treasure Perez MD - 05/11/2022 BONE DENSITY (DEXA) Lumbar Spine T-score is 0.3. (SD relative to 20-29 y/o adult) Z-score is 2.5. (SD relative to age matched peers) This is considered normal by WHO criteria. Left Hip T-score is -1.5. Z-score is 0.3. This is considered osteopenia by WHO criteria. IMPRESSION: This patient is considered to have osteopenia by WHO criteria. Thispatient has a 13% risk of major osteoporotic fracture and a 1.7% risk of hip fracture over the next10 years. (World Health Organization Fracture Risk Assessment) [facility] Department of Internal Medicine recommendsusing National Osteoporosis Foundation (NOF) guidelines in treatment decisions related toosteoporosis. NOF guidelines suggest considering treatment for postmenopausal women and menaged 50 or older presenting with the following: History of hip or vertebral fracture. T-score = -2.5 (DXA) at the femoral neck, total hip, or spine, afterappropriate evaluation to exclude secondary causes. Low bone mass (T-score between -1.0 and -2.5 at the femoral neck or spine)AND a 10-year probability of a hip fracture = 3% OR a 10-year probability of a majorosteoporosis-related fracture = 20% based on the [place]-adapted WHO algorithm Please note that all treatment decisions require clinical judgment andconsideration of individual patient factors, including patient preferences, co- morbidities,previous drug use, risk factors not captured in the FRAX model (e.g., frailty, falls, vitaminD deficiency, increased bone turnover, interval significant decline in bone density) andpossible under- or over-estimation of fracture risk by FRAX. Optional alternative screening schedule based on fredi Navarro., [facility] for patients with osteopenia (based on hip BMD T-score) is as follows: * advanced osteopenia (T scores -2.00 to -2.49), BMD testing every year * moderate osteopenia (T scores -1.50 to -1.99), BMD testing every 5years mild osteopenia or normal BMD (T scores -1.50 and higher), BMD testingevery 15 years Doreen Donahue DO IM DXA PROCEDURE S Final Result * Hepatitis C Screening (04/05/2016) [facility] Hepatitis C Screening abstracted Historical Provider HEALTH MAINTENANCE Final Result from Last 3 Months or Most Recently Relevant to Health Maintenance Insurance [place]ICA[place] - [place] [facility] [employer] MEDICARE Advance Directives Documents on File Type Date Recorded Patient Signal Technician Expl anation Health Care Decision (hx) 05/10/2022 HE ALTH CARE PROXY Health Care Decision (hx) 05/10/2022 HE ALTH CARE PROXY Health Care Decision (hx) 05/10/2022 HE ALTH CARE PROXY Health Care Decision (hx) 05/10/2022 HE ALTH CARE PROXY Health Care Decision (hx) 05/10/2022 HE ALTH CARE PROXY Health Care Decision (hx) 05/10/2022 HE ALTH CARE PROXY Health Care Decision (hx) 05/10/2022 HE ALTH CARE PROXY Health Care Decision (hx) 05/10/2022 HE ALTH CARE PROXY * Full Code - Default (Latest Code Status on File) Date Activated Date Inactivated Comments 07/23/2024 4:22 PM 07/26/2024 5:46 PM This is order is used when code status has not been discussed with the patient, or code status is otherwise unknown/unconfirmed To update the patient's code status, place a code status order. Do not modify or discontinue any currently active code status orders. Healthcare Agents on File Name Relationship Healthcare Agent [facility] Communication [facility] Agent Care Teams Evaporative Cooler Installer Relationship Specialty Start Date End Date Geoffrey Parekh DO [address] [place] [address] PCP - General Family Medicine 10/24/24
--- OUTSIDE RECORDS SUMMARY | 2025-03-19 12:55 | XMS_ITS | Encounter Summary ---
Author Organization [facility] Address [address] [place] [address] Care Team Providers Care Cassandra Developer Name Role Phone Geoffrey Parekh Primary Care Provider [phone] Reason for Visit * Reason Onset Date Comments Weight Gain 03/18/2025 Encounter Details Date Type Department Care Team (Late st Contact Info) Description 03/18/2025 Telephone [facility] [address] [place] [address] Fabio Forman MD [address] [place] [id number] Social History Tobacco Use Types Packs/Day Years [...] PM EST documented as of this encounter Progress Notes * Brittanie Aguilar RN - 03/19/2025 9:51 AM EDT I spoke to Chasity this morning. Her weight decreased to 265 lbs as of today. Pt will continue to monitor her weight and symptoms. Left a message for Chioma, visiting nurse, informing her as well. * Brittanie Aguilar RN - 03/18/2025 1:13 PM EDT Chasity Varghese is a 74 y.o. female, followed Dr. Forman/ [facility] with a history of persistent atrial fibrillation status post PVI ablation in June 2024 on eliquis, heart failure with preserved ejection fraction and most recent echo showing ejection fraction of 60-65%, coronary artery disease status post four vessel CABG, chronic diastolic heart failure, Symptomatic bradycardia status post permanent pacemaker in 2016, hypothyroidism, morbid obesity, early onset dementia, fibromyalgia, [place] on CPAP, hyperlipidemia and essential hypertension. Patient's nurse, Chioma called to report a rapid weight gain. I spoke to Chioma. The patient's lungs are clear, shortness of breath on exertion is not worsening, and chronic BLE edema is not worse. I confirmed the patient's weight and vitals as outlined below. I spoke to Chasity directly as well who denies symptoms, including worsening SOB and edema, orthopnea, PND, chest discomfort, and abdominal bloating. She reports compliance with a low sodium diet and drinks 40 fluid ounces daily. Chasity also reports compliance with her cardiac medications, no missed doses, including Furosemide 40 mg daily. Please advise. 03/16/25 263 lbs 03/18/25 267 lbs, BP 110/72, O2 97% * Mis Fulton - 03/18/2025 11:50 AM EDT Chioma a visiting nurse for the patient called to report the patients weight gain. On 03/16/25 the weight was 263lbs. Today 03/18/25 the patients weight is 267lbs. Blood pressure is 110/72 and oxygen isat 97%. There is no edema and lungs are clear. Please call Chioma back. documented in this encounter Plan of Treatment Upcoming Encounters Date Type Department Care Team (Late st Contact Info) Description 04/02/2025 8:00 AM EST Ancillary Procedure [facility] Card[facility] [address] [facility] [address] [place] [phone] 04/16/2025 9:15 AM EST Office Visit [facility] Hematology Oncology [address] [place] [phone] Rd-Beckie Hughes MD [address] [place] [phone] 04/22/2025 8:10 AM EST Office Visit [address] [place] [phone] Jeremias Yu NP [address] [place] [address] [address] [place] [phone] 09/11/2025 10:00 AM EDT Office Visit Pulmonology - [place] [address] [facility] [address] [place] [phone] Nicky Bailey MD [address] [place] [phone] documented as of this encounter Visit Diagnoses Not on filedocumented in this encounter Care Teams Cassandra Developer Relationship Specialty Start Date End Date Geoffrey Parekh DO [address] [place], [place] PCP - General Family Medicine 10/24/24 documented as of this encounter
--- OUTSIDE RECORDS SUMMARY | 2025-03-19 12:56 | XMS_ITS | Encounter Summary ---
Author Organization [facility] Address [address] [place] [address] Care Team Providers Care Director Of Institutional Giving Name Role Phone ParekhGeoffrey Primary Care Provider [phone] Encounter Details Date Type Department Care Team (Late st Contact Info) Description 07/27/[address] [facility] - Main Lab [address] [place] [phone] Nohemy Alonso MD [address] [id number] Chronic atrial fibrillation, unspecified (CMS/HCC V24, CMS/HCC V28); Hypothyroidism, unspecified; Cellulitis of unspecified part of limb; Unspecified systolic (congestive) heart failure (CMS/HCC V24, CMS/HCC V28) Social History Tobacco Use Types Packs/Day Years [...] Description 04/02/2025 8:00 AM EST Ancillary Procedure [facility] [address] [facility] 154 [place] [phone] 04/16/2025 9:15 AM EST Office Visit [facility] Hematology Oncology [address] [place] [address] Beckie Fuentes MD [address] [place] [address] 04/22/2025 8:10 AM EST Office Visit [facility] Cardiology [facility] [address] [place] [address] Jeremias Yu NP [address] [place] [address] Dr Terell [address] [place] [address] 09/11/2025 10:00 AM EDT Office Visit Pulmonology - [place] 175 [facility] 200 [place] [address] Nicky Bailey MD [address] [place] [address] documented as of this encounter Procedures Procedure Name Priority Date/Time Associated Diagnosis Comments COMPLETE BLOOD COUNT Routine 07/27/2024 6:37 AM EST Chronic atrial fibrillation, unspecified (CMS/HCC) Hypothyroidism, unspecified Cellulitis of unspecified part of limb Unspecified systolic (congestive) heart failure (CMS/HCC) THYROID STIMULATING HORMONE Routine 07/27/2024 6:37 AM EST Chronic atrial fibrillation, unspecified (CMS/HCC) Hypothyroidism, unspecified Cellulitis of unspecified part of limb Unspecified systolic (congestive) heart failure (CMS/HCC) MAGNESIUM Routine 07/27/2024 6:37 AM EST Chronic atrial fibrillation, unspecified (CMS/HCC) Hypothyroidism, unspecified Cellulitis of unspecified part of limb Unspecified systolic (congestive) heart failure (CMS/HCC) FOLATE Routine 07/27/2024 6:37 AM EST Chronic atrial fibrillation, unspecified (CMS/HCC) Hypothyroidism, unspecified Cellulitis of unspecified part of limb Unspecified systolic (congestive) heart failure (CMS/HCC) VITAMIN B12 Routine 07/27/2024 6:37 AM EST Chronic atrial fibrillation, unspecified (CMS/HCC) Hypothyroidism, unspecified Cellulitis of unspecified part of limb Unspecified systolic (congestive) heart failure (CMS/HCC) BASIC METABOLIC PANEL Routine 07/27/2024 6:37 AM EST Chronic atrial fibrillation, unspecified (CMS/HCC) Hypothyroidism, unspecified Cellulitis of unspecified part of limb Unspecified systolic (congestive) heart failure (CMS/HCC) documented in this encounter Results * Thyroid stimulating hormone (07/27/2024 6:37 AM EST) Pathologist [facility] TSH 0.86 0.40 - 4.00 mcIU/mL LAB CHEMISTRY METHOD 07/27/2024 9:59 AM EST [facility] Blood Venous blood specimen / Unknown Venipuncture / Unknown 07/27/2024 6:37 AM EST 07/27/2024 9:05 AM EST us Nohemy Alonso MD LAB BLOOD ORDERABLES Fin al Result [facility] [address] [place] [address], * Vitamin B12 (07/27/2024 6:37 AM EST) Pathologist [facility] Vitamin B-12 336 250 - 900 pcg/mL LAB CHEMISTRY METHOD 07/27/2024 10:14 AM EST [facility] Blood Venous blood specimen / Unknown Venipuncture / Unknown 07/27/2024 6:37 AM EST 07/27/2024 9:05 AM EST Nohemy Alonso MD LAB BLOOD ORDERABLES Fin al Result Performing Organization Address [facility] de Phone Number [facility] [address] [place] [address], [place] [phone] * (ABNORMAL) Folate (07/27/2024 6:37 AM EST) [facility] Folate 18.4(H) 2.8 - 17.0 ng/ml LAB CHEMISTRY METHOD 07/27/2024 10:14 AM EST [facility] Blood Venous blood specimen / Unknown Venipuncture / Unknown 07/27/2024 6:37 AM EST 07/27/2024 9:05 AM EST Nohemy Alonso MD LAB BLOOD ORDERABLES Fin al Result Performing Organization Address [facility] de Phone Number [facility] [address] [place] [address], [place] [phone] * Magnesium (07/27/2024 6:37 AM EST) [facility] Magnesium 1.9 1.9 - 2.6 mg/dL LAB CHEMISTRY METHOD 07/27/2024 9:52 AM EST [facility] Blood Venous blood specimen / Unknown Venipuncture / Unknown 07/27/2024 6:37 AM EST 07/27/2024 9:05 AM EST Nohemy Alonso MD LAB BLOOD ORDERABLES Fin al Result Performing Organization Address [facility] Co de Phone Number [facility] [address] [place] [address], [place] [phone] * (ABNORMAL) Basic metabolic panel (07/27/2024 6:37 AM EST) Sodium 140 133 - 145 mmol/L LAB CHEMISTRY METHOD 07/27/2024 9:52 AM [facility] Potassium 3.9 3.5 - 5.5 mmol/L LAB CHEMISTRY METHOD 07/27/2024 9:52 AM [facility] Chloride 103 96 - 110 mmol/L LAB CHEMISTRY METHOD 07/27/2024 9:52 AM [facility] CO2 29 21 - 32 mmol/L LAB CHEMISTRY METHOD 07/27/2024 9:52 AM [facility] Anion Gap 8 3 - 11 LAB CHEMISTRY METHOD 07/27/2024 9:52 AM [facility] Glucose 124(H) 70 - 100 mg/dL LAB CHEMISTRY METHOD 07/27/2024 9:52 AM [facility] BUN 16 5 - 25 mg/dL LAB CHEMISTRY METHOD 07/27/2024 9:52 AM [facility] Creatinine 0.74 0.50 - 1.10 mg/dL LAB CHEMISTRY METHOD 07/27/2024 9:52 AM [facility] eGFR 84 >=60 mL/min/1. 73m2 LAB CHEMISTRY METHOD 07/27/2024 9:52 AM [facility] Comment:Calculation based on the Chronic Kidney Disease Epidemiology Collaboration (CKD-EPI) equation refit without adjustment for race. BUN/Creatinine Ratio 21.6 LAB CHEMISTRY METHOD 07/27/2024 9:52 AM [facility] Calcium 8.9 8.5 - 10.5 mg/dL LAB CHEMISTRY METHOD 07/27/2024 9:52 AM [facility] Blood Venous blood specimen / Unknown Venipuncture / Unknown 07/27/2024 6:37 AM EST 07/27/2024 9:05 AM EST us Nohemy Alonso MD LAB BLOOD ORDERABLES Fin al Result [facility] [address] [place] [address], * (ABNORMAL) Complete blood count (07/27/2024 6:37 AM EST) [facility] WBC 6.7 4.8 - 10.8 K/mcL LAB HEMETOLOGY METHOD 07/27/2024 9:28 AM [facility] RBC 3.60(L) 3.80 - 4.80 M/mcL LAB HEMETOLOGY METHOD 07/27/2024 9:28 AM [facility] Hemoglobin 11.2(L) 11.5 - 16.0 g/dL LAB HEMETOLOGY METHOD 07/27/2024 9:28 AM [facility] Hematocrit 35.9 35.0 - 47.0 % LAB HEMETOLOGY METHOD 07/27/2024 9:28 AM [facility] MCV 100.8(H) 79.0 - 98.0 FL LAB HEMETOLOGY METHOD 07/27/2024 9:28 AM [facility] MCH 31.5 27.0 - 32.0 pcg LAB HEMETOLOGY METHOD 07/27/2024 9:28 AM [facility] MCHC 31.2(L) 32.0 - 37.0 g/dL LAB HEMETOLOGY METHOD 07/27/2024 9:28 AM [facility] RDW 15.2(H) 11.0 - 15.0 % LAB HEMETOLOGY METHOD 07/27/2024 9:28 AM [facility] Platelets 251 130 - 400 K/mcL LAB HEMETOLOGY METHOD 07/27/2024 9:28 AM [facility] MPV 11.5(H) 7.0 - 11.0 FL LAB HEMETOLOGY METHOD 07/27/2024 9:28 AM [facility] NRBC 0.0 <1.0 % LAB HEMETOLOGY METHOD 07/27/2024 9:28 AM EST [facility] NRBC Absolute 0.00 <0.10 K/mcL LAB HEMETOLOGY METHOD 07/27/2024 9:28 AM EST [facility] Blood Venous blood specimen / Unknown Venipuncture / Unknown 07/27/2024 6:37 AM EST 07/27/2024 9:05 AM EST us Nohemy Alonso MD LAB BLOOD ORDERABLES Fin al Result [facility] [address] [place] [address], documented in this encounter Visit Diagnoses Diagnosis Chronic atrial fibrillation, unspecified (CMS/HCC V24, CMS/HCC V28) Hypothyroidism, unspecified Cellulitis of unspecified part of limb Unspecified systolic (congestive) heart failure (CMS/HCC V24, CMS/HCC V28) Encounter for adjustment or management of cardiac device documented in this encounter Care Teams Director Of Institutional Giving Relationship Specialty Start Date End Date [facility] [place] [place] PCP - General Family Medicine 10/24/24 documented as of this encounter
--- OUTSIDE RECORDS SUMMARY | 2025-03-19 12:56 | XMS_ITS | Encounter Summary ---
Author Organization [facility] Address [address] [place] [address] Care Team Providers Care Installation Drafter Name Role Phone Geoffrey Parekh Primary Care Provider [phone] Reason for Visit * Reason Onset Date Comments Cardiac Clearance 03/14/2025 Encounter Details Date Type Department Care Team (Late st Contact Info) Description 03/14/2025 Telephone [facility] [address] [place] [address] Jeremias Yu NP [address] [place] [address] Dr Figueredo [address] [place] [phone] Social History Tobacco Use Types Packs/Day Years [...] as of this encounter Progress Notes * Ryann Lanier MA - 03/18/2025 3:28 PM EDT Form and last office visit placed on [facility] desk. * Ryann Lanier MA - 03/14/2025 4:56 PM EDT Noted. Waiting for fax. * Agata Booker - 03/14/2025 2:48 PM EDT Silvia from [facility] called and stated that she is going to fax over a cardiacclearance letter, as the patient is having cataract surgery. Silvia said she would like it to be filled out and sent back when completed. Their fax number is [phone]. documented in this encounter Plan of Treatment Upcoming Encounters Date Type Department Care Team (Late st Contact Info) Description 04/02/2025 8:00 AM EST Ancillary Procedure [facility] Cardiology [facility] [address] [facility] [address] [place] [address] 04/16/2025 9:15 AM EST Office Visit [facility] Hematology Oncology [address] [place] [phone] Beckie Fuentes MD [address] [place] [phone] 04/22/2025 8:10 AM EST Office Visit [facility] Cardiology [facility] [address] [facility] [address] [place] [phone] Jeremias Yu NP [address] [place] [address] Dr Figueredo [address] [place] [address] 09/11/2025 10:00 AM EDT Office Visit Pulmonology - [place] [address] [facility] [address] [place] [address] Nicky Bailey MD [address] [place] [address] documented as of this encounter Visit Diagnoses Not on filedocumented in this encounter Care Teams Installation Drafter Relationship Specialty Start Date End Date [facility] [place] [place] PCP - General Family Medicine 10/24/24 documented as of this encounter
--- OUTSIDE RECORDS SUMMARY | 2025-03-19 12:56 | XMS_ITS | Encounter Summary ---
Author Organization [facility] Address [address] [place] [address] Care Team Providers Care Nutritionalist Name Role Phone Geoffrey Parekh Primary Care Provider [phone] Encounter Details Date Type Department Care Team (Late st Contact Info) Description 08/02/2024 Lab Requisition [facility] - Main Lab 299 [facility] [place] [phone] Nohemy Alonso MD [address] [id number] Chronic atrial fibrillation, unspecified (CMS/HCC V24, CMS/HCC V28) Social History Tobacco [...] Description 04/02/2025 8:00 AM EST Ancillary Procedure [facility] Cardiology [facility] [address] [place] [address] 04/16/2025 9:15 AM EST Office Visit [facility] Hematology Oncology [address] [place] [phone] Beckie Fuentes MD [address] [place] [address] 04/22/2025 8:10 AM EST Office Visit [facility] Cardiology [facility] [address] [place] [address] Jeremias Yu NP [address] [place] [address] Te[address] [place] [address] 09/11/2025 10:00 AM EDT Office Visit Pulmonology - [address] [facility] [address] [place] [address] Nicky Bailey MD [address] [place] [address] documented as of this encounter Visit Diagnoses Diagnosis Chronic atrial fibrillation, unspecified (CMS/HCC V24, CMS/HCC V28) Encounter for adjustment or management of cardiac device documented in this encounter Care Teams Nutritionalist Relationship Specialty Start Date End Date Geoffrey [facility] [place] [place] PCP - General Family Medicine 10/24/24 documented as of this encounter
--- OUTSIDE RECORDS SUMMARY | 2025-04-07 20:00 | XMS_ITS | Clinical Summary ---
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 Active 10-03 00:00: 00 ACUTE RESPIRATORY FAILURE WITH HYPOXIA Active 10-17 00:00: 00 ACUTE ON CHRONIC DIASTOLIC (CONGESTIVE) HEART FAILURE Active 10-10 00:00: 00 PAROXYSMAL ATRIAL FIBRILLATION Active 10-17 00:00: 00 PRESENCE OF AORTOCORONAR Y BYPASS GRAFT Active 10-17 00:00: 00 HYPERLIPIDEM IA, UNSPECIFIED Active 10-17 00:00: 00 ESSENTIAL (PRIMARY) HYPERTENSION Active 10-17 00:00: 00 ATHSCL HEART DISEASE OF [place] CORONARY ARTERY W/O ANG PCTRS Active 10-10 00:00: 00 HYPOXEMIA Active 10-10 00:00: 00 HEART FAILURE, UNSPECIFIED Active 10-10 00:00: 00 Allergies, Adverse Reactions, Alerts Allergy Name Allergy Type Status Severity Reaction(s) Onset Date Inactive Date Treating Clinician Comments NKA Propensity to adverse reactions Active 2024-09 12:30:0 0 Medications Ordered Medication Name Filled Medication Name Start Date Stop Date Current Medication? Ordering Clinician Indication Dosage Frequency Signature (SIG) Comments Components levothyroxi ne 88 mcg tablet 3 00:00: 00 Yes [id number] Per instruc tions DAILY Per instructio ns DAILY (route: oral) Med Classific ation: Endocrine Eliquis 5 mg tablet 07-20 00:00: 00 Yes [id number] Per instruc tions TWICE DAILY Per instructio ns TWICE DAILY (route: oral) Med Classific ation: Hematolog ical Agents potassium chloride ER 10 mEq capsule,ext ended release 07-20 00:00: 00 Yes [id number] Per instruc tions DAILY Per instructio ns DAILY (route: oral) Med Classific ation: Electroly te Balance-N utritiona l Products diazepam 5 mg tablet 07-15 00:00: 00 Yes [id number] Per instruc tions EVERY NIGHT AT BEDTIME Per instructio ns EVERY NIGHT AT BEDTIME (route: oral) Med Classific ation: Central Nervous System Agents rosuvastati n 40 mg tablet 07-05 00:00: 00 Yes [id number] Per instruc tions DAILY Per instructio ns DAILY (route: oral) Med Classific ation: Cardiovas cular Therapy Agents dorzolamide 2 % eye drops 07-02 00:00: 00 Yes [id number] Per instruc tions TWICE DAILY FOR 3 MONTHS DIRECTED Per instructio ns TWICE DAILY FOR 3 MONTHS DIRECTED (route: ophthalmic (eye)) Med Classific ation: Ophthalmi c Agents furosemide 20 mg tablet 06-30 00:00: 00 10-11 23:59 :00 No [id number] Per instruc tions DAILY Per instructio ns DAILY (route: oral) Med Classific ation: Cardiovas cular Therapy Agents trazodone 50 mg tablet 06-30 00:00: 00 Yes [id number] Per instruc tions DAILY AT BEDTIME NEEDED Per instructio ns DAILY AT BEDTIME NEEDED (route: oral) Med Classific ation: Central Nervous System Agents Farxiga 5 mg tablet 06-27 00:00: 00 Yes [id number] Per instruc tions DAILY Per instructio ns DAILY (route: oral) Med Classific ation: Endocrine acetaminoph en 325 mg tablet 10-11 00:00: 00 Yes [id number] 2 tablet EVERY 6 HOURS 2 tablet EVERY 6 HOURS (route: oral) Med Classific ation: Analgesic , Anti-infl ammatory or Antipyret ic amiodarone 200 mg tablet 10-11 00:00: 00 Yes [id number] 1 tablet DAILY 1 tablet DAILY (route: oral) Med Classific ation: Cardiovas cular Therapy Agents ascorbic acid (vitamin C) 1,000 mg tablet 10-11 00:00: 00 Yes [id number] 1 tablet DAILY 1 tablet DAILY (route: oral) Med Classific ation: Electroly te Balance-N utritiona l Products brimonidine 0.1 % eye drops 10-11 00:00: 00 Yes [id number] 1 drops 2 TIMES DAILY 1 drops 2 TIMES DAILY (route: ophthalmic (eye)) Med Classific ation: Ophthalmi c Agents brimonidine 0.1 % eye drops 10-11 00:00: 00 Yes [id number] 1 drops 2 TIMES DAILY 1 drops 2 TIMES DAILY (route: ophthalmic (eye)) Med Classific ation: Ophthalmi c Agents budesonide 32 mcg/actuati on nasal spray 10-11 00:00: 00 Yes [id number] 1 spray DAILY 1 spray DAILY (route: nasal) Med Classific ation: Respirato ry Therapy Agents cetirizine 10 mg tablet 10-11 00:00: 00 Yes [id number] 1 tablet DAILY 1 tablet DAILY (route: oral) Med Classific ation: Respirato ry Therapy Agents cholecalcif josé miguel (vitamin D3) 50 mcg (2,000 unit) tablet 10-11 00:00: 00 Yes [id number] 1 tablet DAILY 1 tablet DAILY (route: oral) Med Classific ation: Electroly te Balance-N utritiona l Products duloxetine 30 mg capsule,del ayed release 10-11 00:00: 00 Yes [id number] 2 capsule DAILY 2 capsule DAILY (route: oral) Med Classific ation: Central Nervous System Agents ferrous sulfate 325 mg (65 mg iron) tablet 10-11 00:00: 00 Yes [id number] 1 tablet 2 TIMES DAILY 1 tablet 2 TIMES DAILY (route: oral) Med Classific ation: Electroly te Balance-N utritiona l Products fluticasone propionate 50 mcg/actuati on nasal spray,suspe nsion 10-11 00:00: 00 Yes [id number] 1 spray DAILY 1 spray DAILY (route: nasal) Med Classific ation: Respirato ry Therapy Agents furosemide 40 mg tablet 10-11 00:00: 00 11-16 23:59 :00 No [id number] 1 tablet DAILY 1 tablet DAILY (route: oral) Med Classific ation: Cardiovas cular Therapy Agents isosorbide mononitrate ER 30 mg tablet,exte nded release 24 hr 10-11 00:00: 00 11-12 23:59 :00 No [id number] 120 mg EVERY AM 120 mg EVERY AM (route: oral) Med Classific ation: Cardiovas cular Therapy Agents memantine 10 mg tablet 10-11 00:00: 00 Yes [id number] 1 tablet 2 TIMES DAILY 1 tablet 2 TIMES DAILY (route: oral) Med Classific ation: Cognitive Disorder Therapy metoprolol succinate ER 25 mg tablet,exte nded release 24 hr 10-11 00:00: 00 01-16 23:59 :00 No [id number] 1 tablet DAILY 1 tablet DAILY (route: oral) Med Classific ation: Cardiovas cular Therapy Agents multivitami n tablet 10-11 00:00: 00 Yes [id number] 1 tablet DAILY 1 tablet DAILY (route: oral) Med Classific ation: Electroly te Balance-N utritiona l Products mupirocin 2 % topical ointment 10-11 00:00: 00 Yes [id number] Per instruc tions DIRECTED Per instructio ns DIRECTED (route: topical) Med Classific ation: Dermatolo gical nitroglycer in 0.4 mg sublingual tablet 10-11 00:00: 00 Yes [id number] Per instruc tions DIRECTED Per instructio ns DIRECTED (route: sublingual ) Med Classific ation: Cardiovas cular Therapy Agents omeprazole 40 mg capsule,del ayed release 10-11 00:00: 00 Yes [id number] 1 capsule 2 TIMES DAILY 1 capsule 2 TIMES DAILY (route: oral) Med Classific ation: Gastroint estinal Therapy Agents prednisone 10 mg tablet 10-11 00:00: 00 12-12 23:59 :00 No [id number] Per instruc tions DIRECTED Per instructio ns DIRECTED (route: oral) Med Classific ation: Endocrine travoprost 0.004 % eye drops 10-11 00:00: 00 Yes [id number] 1 drops BEDTIME 1 drops BEDTIME (route: ophthalmic (eye)) Med Classific ation: Ophthalmi c Agents oxygen gas for inhalation 10-17 00:00: 00 Yes [id number] SOB 2 Liter O2 - CONTINUOUS 2 Liter O2 - CONTINUOUS (route: inhalation ) Alternate Route: O2 - NASAL CANNULA. Med Classific ation: Medical Supplies and Durable Medical Equipment (DME) Miralax 17 gram/dose oral powder 11-02 00:00: 00 Yes [id number] Per instruc tions DIRECTED Per instructio ns DIRECTED (route: oral) Med Classific ation: Gastroint estinal Therapy Agents isosorbide mononitrate ER 60 mg tablet,exte nded release 24 hr 11-12 00:00: 00 Yes [id number] 1 tablet EVERY AM 1 tablet EVERY AM (route: oral) Med Classific ation: Cardiovas cular Therapy Agents Lasix 20 mg tablet 11-14 00:00: 00 12-12 23:59 :00 No [id number] 2 tablet DIRECTED 2 tablet DIRECTED (route: oral) Med Classific ation: Cardiovas cular Therapy Agents Lasix 20 mg tablet 11-14 00:00: 00 11-16 23:59 :00 No [id number] 2 tablet DIRECTED 2 tablet DIRECTED (route: oral) Med Classific ation: Cardiovas cular Therapy Agents Lasix 20 mg tablet 11-16 00:00: 00 11-16 23:59 :00 No [id number] 3 tablet DIRECTED 3 tablet DIRECTED (route: oral) Med Classific ation: Cardiovas cular Therapy Agents Lasix 20 mg tablet 11-17 00:00: 00 11-18 23:59 :00 No [id number] 3 tablet 2 TIMES DAILY 3 tablet 2 TIMES DAILY (route: oral) Med Classific ation: Cardiovas cular Therapy Agents Lasix 40 mg tablet 11-19 00:00: 00 Yes [id number] 1 tablet EVERY AM 1 tablet EVERY AM (route: oral) Med Classific ation: Cardiovas cular Therapy Agents metoprolol succinate ER 50 mg tablet,exte nded release 24 hr 01-16 00:00: 00 Yes [id number] 1 tablet EVERY AM 1 tablet EVERY AM (route: oral) Med Classific ation: Cardiovas cular Therapy Agents triamcinolo ne acetonide 0.025 % topical cream 2024-05 00:00: 00 Yes [id number] Per instruc tions EVERY AM Per instructio ns EVERY AM (route: topical) Med Classific ation: Dermatolo gical triamcinolo ne acetonide 0.025 % topical cream 2024-05 00:00: 00 Yes [id number] Per instruc tions EVERY PM Per instructio ns EVERY PM (route: topical) Med Classific ation: Dermatolo gical Vital Signs Vital Name Observation Time Observation Value Commen ts Temperature 2025-02-08 12:34:00.000 97.5 [degF] Pulse 2025-03-15 10:27:00.000 68 /min Pulse 2025-03-06 11:04:00.000 64 /min Pulse 2025-03-04 11:21:00.000 63 /min Pulse 2025-03-01 10:24:00.000 64 /min Pulse 2025-02-27 10:54:00.000 60 /min Pulse 2025-02-18 10:22:00.000 73 /min Pulse 2025-02-15 10:49:00.000 63 /min Pulse 2025-02-13 11:21:00.000 65 /min Pulse 2025-02-11 10:40:00.000 68 /min O2 Saturation (%) 2025-03-15 10:27:00.000 97 % O2 Saturation (%) 2025-03-06 11:04:00.000 98 % O2 Saturation (%) 2025-03-04 11:21:00.000 98 % O2 Saturation (%) 2025-03-01 10:24:00.000 94 % O2 Saturation (%) 2025-02-27 10:54:00.000 97 % O2 Saturation (%) 2025-02-18 10:22:00.000 97 % O2 Saturation (%) 2025-02-15 10:49:00.000 97 % O2 Saturation (%) 2025-02-13 11:22:00.000 96 % O2 Saturation (%) 2025-02-11 10:40:00.000 98 % O2 Saturation (%) 2025-02-08 12:36:00.000 95 % Respirations 2025-03-15 10:27:00.000 20 /min Respirations 2025-03-06 11:04:00.000 20 /min Respirations 2025-03-04 11:21:00.000 22 /min Respirations 2025-03-01 10:24:00.000 22 /min Respirations 2025-02-18 10:22:00.000 22 /min Respirations 2025-02-15 10:49:00.000 22 /min Respirations 2025-02-13 11:21:00.000 22 /min Respirations 2025-02-11 10:40:00.000 22 /min Weight (lbs) 2025-03-15 10:27:00.000 263 [lb_av] Weight (lbs) 2025-03-06 11:04:00.000 261 [lb_av] Weight (lbs) 2025-03-04 11:22:00.000 264 [lb_av] Weight (lbs) 2025-03-01 10:24:00.000 264 [lb_av] Weight (lbs) 2025-02-27 11:22:00.000 270 [lb_av] Weight (lbs) 2025-02-18 10:22:00.000 264 [lb_av] Weight (lbs) 2025-02-15 10:49:00.000 262 [lb_av] Weight (lbs) 2025-02-13 11:21:00.000 263 [lb_av] Weight (lbs) 2025-02-11 10:40:00.000 261 [lb_av] Weight (lbs) 2025-02-08 12:34:00.000 262 [lb_av] Systolic Blood Pressure 2025-03-15 10:27:00.000 128 mm [Hg] Systolic Blood Pressure 2025-03-06 11:04:00.000 128 mm [Hg] Systolic Blood Pressure 2025-03-04 11:21:00.000 150 mm [Hg] Systolic Blood Pressure 2025-03-01 10:24:00.000 142 mm [Hg] Systolic Blood Pressure 2025-02-27 10:54:00.000 130 mm [Hg] Systolic Blood Pressure 2025-02-18 10:22:00.000 150 mm [Hg] Systolic Blood Pressure 2025-02-15 10:49:00.000 126 mm [Hg] Systolic Blood Pressure 2025-02-13 11:21:00.000 134 mm [Hg] Systolic Blood Pressure 2025-02-11 10:40:00.000 120 mm [Hg] Diastolic Blood Pressure 2025-03-15 10:27:00.000 82 mm [Hg] Diastolic Blood Pressure 2025-03-06 11:04:00.000 64 mm [Hg] Diastolic Blood Pressure 2025-03-04 11:21:00.000 74 mm [Hg] Diastolic Blood Pressure 2025-03-01 10:24:00.000 66 mm [Hg] Diastolic Blood Pressure 2025-02-27 10:54:00.000 68 mm [Hg] Diastolic Blood Pressure 2025-02-18 10:22:00.000 70 mm [Hg] Diastolic Blood Pressure 2025-02-15 10:49:00.000 70 mm [Hg] Diastolic Blood Pressure 2025-02-13 11:21:00.000 82 mm [Hg] Diastolic Blood Pressure 2025-02-11 10:40:00.000 68 mm [Hg] Plan of Treatment Planned Activity Planned Date Details Comments Future Scheduled Test SKILLED NU RSE TO EVALUATE PATIENT, IDENTIFY PRIMARY AND CO-MORBID CONDITIONS CODED PER CODING GUIDELINES, AND DEVELOP PATIENT SPECIFIC PLAN OF CARE THAT INCLUDES PATIENT GOAL FOR HOME HEALTH. [code = SKILLED NURSE TO EVALUATE PATIENT, IDENTIFY PRIMARY AND CO-MORBID CONDITIONS CODED PER CODING GUIDELINES, AND DEVELOP PATIENT SPECIFIC PLAN OF CARE THAT INCLUDES PATIENT GOAL FOR HOME HEALTH.] Future Scheduled Test SKILLED NU RSE TO O/A OF PATIENTS MENTAL/BEHAVIORAL STATUS, ASSESS VITAL SIGNS 3WK8 ALLOW 2 PRNS FOR MEDICATION MANAGEMENT. [code = SKILLED NURSE TO O/A OF PATIENTS MENTAL/BEHAVIORAL STATUS, ASSESS VITAL SIGNS 3WK8 ALLOW 2 PRNS FOR MEDICATION MANAGEMENT.] Future Scheduled Test SKILLED NU RSE WILL MAINTAIN SITUATIONAL AWARENESS FOR SAFETY AND WILL NOTIFY CLINICAL ART HISTORIAN AND PHYSICIAN/PROVIDER WITH ANY CHANGE IN CONDITION. [code = SKILLED NURSE WILL MAINTAIN SITUATIONAL AWARENESS FOR SAFETY AND WILL NOTIFY CLINICAL ART HISTORIAN AND PHYSICIAN/PROVIDER WITH ANY CHANGE IN CONDITION.] Future Scheduled Test SKILLED NU RSE TO REVIEW PATIENT MEDICATIONS. INSTRUCT PATIENT/CAREGIVER ON MONITORING OF EFFECTIVENESS, ADVERSE DRUG REACTIONS, SIDE EFFECTS OF ALL MEDICATIONS (PRESCRIPTION/-OTC), AND HOW AND WHEN TO REPORT PROBLEMS. [code = SKILLED NURSE TO REVIEW PATIENT MEDICATIONS. INSTRUCT PATIENT/CAREGIVER ON MONITORING OF EFFECTIVENESS, ADVERSE DRUG REACTIONS, SIDE EFFECTS OF ALL MEDICATIONS (PRESCRIPTION/-OTC), AND HOW AND WHEN TO REPORT PROBLEMS.] Future Scheduled Test SKILLED NU RSE FOR O/A OF GENERAL HEALTH STATUS OF PAIN, CARDIAC, RESPIRATORY, GASTROINTESTINAL, GENITOURINARY, SKIN, NEUROLOGIC, ENDOCRINE SYSTEMS TO IDENTIFY CHANGES ASSOCIATED WITH EXACERBATION FOR EARLY INTERVENTION OF COMPLICATIONS WEEKLY [code = SKILLED NURSE FOR O/A OF GENERAL HEALTH STATUS OF PAIN, CARDIAC, RESPIRATORY, GASTROINTESTINAL, GENITOURINARY, SKIN, NEUROLOGIC, ENDOCRINE SYSTEMS TO IDENTIFY CHANGES ASSOCIATED WITH EXACERBATION FOR EARLY INTERVENTION OF COMPLICATIONS WEEKLY] Future Scheduled Test INSTRUCTED PATIENT/CAREGIVER ON SIGNS AND SYMPTOMS, RISK FACTORS, COMPLICATIONS, AND MANAGEMENT OF ATRIAL FIBRILLATION. [code = INSTRUCTED PATIENT/CAREGIVER ON SIGNS AND SYMPTOMS, RISK FACTORS, COMPLICATIONS, AND MANAGEMENT OF ATRIAL FIBRILLATION.] Future Scheduled Test SKILLED NU RSE FOR O/A, TEACHING, AND MANAGEMENT OF ATHSCL HEART DISEASE [code = SKILLED NURSE FOR O/A, TEACHING, AND MANAGEMENT OF ATHSCL HEART DISEASE] Future Scheduled Test SKILLED NU RSE TO ASSESS PATIENT S PSYCHOSOCIAL STATUS TO IDENTIFY POTENTIAL ISSUES THAT MAY COMPLICATE THE PROVISION OF THE PLAN OF CARE INCLUDING THE PATIENT S ABILITY TO ACCESS COMMUNITY RESOURCES AND PSYCHOSOCIAL SUPPORT SERVICES. [code = SKILLED NURSE TO ASSESS PATIENT S PSYCHOSOCIAL STATUS TO IDENTIFY POTENTIAL ISSUES THAT MAY COMPLICATE THE PROVISION OF THE PLAN OF CARE INCLUDING THE PATIENT S ABILITY TO ACCESS COMMUNITY RESOURCES AND PSYCHOSOCIAL SUPPORT SERVICES.] Future Scheduled Test SKILLED NU RSE FOR O/A AND SKILLED TEACHING RELATED TO MANAGEMENT OF DEPRESSIVE SYMPTOMS AND/OR DEPRESSION. SN TO REPORT SIGNIFICANT CHANGE IN DEPRESSIVE SYMPTOMS TO CLINICAL PROVIDER FOR EARLY INTERVENTION. [code = SKILLED NURSE FOR O/A AND SKILLED TEACHING RELATED TO MANAGEMENT OF DEPRESSIVE SYMPTOMS AND/OR DEPRESSION. SN TO REPORT SIGNIFICANT CHANGE IN DEPRESSIVE SYMPTOMS TO CLINICAL PROVIDER FOR EARLY INTERVENTION.] Goal 2024-12-05 Patient Goal - TO NOT BE SO TIRED Goal 2025-02-04 Patient Goal - LOSE WEIGHT Goal Patient Goal - LOSE WEIGHT Goal Provider Goal - A PLAN OF CARE WILL BE ESTABLISHED THAT MEETS PATIENT'S CORRECTION NEEDS AND INCLUDES PATIENT GOAL FOR HOME HEALTH. Goal Provider Goal - ALTERED MENTAL/BEHAVIORAL STATUS WILL BE IDENTIFIED PROMPTLY AND INTERVENTION INITIATED QUICKLY TO MINIMIZE ASSOCIATED RISKS THROUGHOUT CERTIFICATION PERIOD. Goal Provider Goal - PATIENT WILL REMAIN SAFE IN THE COMMUNITY AND WILL BE FREE OF DANGER TO SELF AND OTHERS THROUGHOUT THE CERTIFICATION PERIOD. Goal Provider Goal - PATIENT/CAREGIVER WILL VERBALIZE UNDERSTANDING OF EDUCATION PROVIDED ON MEDICATIONS BY THE END OF THE CERTIFICATION PERIOD. Goal Provider Goal - CHANGE IN GENERAL HEALTH STATUS WILL BE IDENTIFIED AND REPORTED TO PHYSICIAN FOR PROMPT INTERVENTION TO MINIMIZE ASSOCIATED RISKS THROUGHOUT CERTIFICATION PERIOD. Goal Provider Goal - PATIENT/CAREGIVER WILL VERBALIZE UNDERSTANDING OF SIGNS AND SYMPTOMS, COMPLICATIONS, AND MANAGEMENT OF ATRIAL FIBRILLATION THROUGHOUT THE CERTIFICATION PERIOD. Goal Provider Goal - PATIENT/CAREGIVER WILL VERBALIZE/DEMONSTRATE MANAGEMENT OF ATHSCL HEART DISEASECARDIAC DISEASE PROCESS AND EXACERBATIONS WILL BE IDENTIFIED AND PROMPTLY REPORTED THROUGHOUT THE CERTIFICATION PERIOD. Goal Provider Goal - PSYCHOSOCIAL NEEDS WILL BE IDENTIFIED AND PLAN IMPLEMENTED TO MINIMIZE RISK THROUGHOUT CERTIFICATION PERIOD. Goal Provider Goal - PATIENT WILL REMAIN SAFE WITHOUT DECOMPENSATION IN DEPRESSIVE CONDITION, WHILE MAINTAINING OPTIMAL LEVEL OF MENTAL HEALTH AND WELL BEING THROUGHOUT CERTIFICATION PERIOD. Encounters Start Date/Time End Date/Time Encounter Type Admission Type Attending [facility] Care Facility Care Department Encounter ID Discharge Date Discharge Status Discharge Condition Discharge Reason Percent Goals Met 2025-02-08 00:00:00 2025-04-08 00:00:00 Outpatient [facility]ERT[facility] [id number]
== END 2025-03-19 11:16 | disposition home or self-care (01) ==
LOC: HO.HSM 10:27
PROVIDERS: PCP Family Medicine; Referring Provider Family Medicine; Visit Provider Registered Nurse
DX: F03.A0 Unspecified dementia, mild, without behavioral disturbance, psychotic disturbance, mood disturbance, and anxiety (principal); R25.1 Tremor, unspecified; G47.00 Insomnia, unspecified; G43.909 Migraine, unspecified, not intractable, without status migrainosus
CPT/HCPCS: 99214

== ENCOUNTER 2025-03-19 10:26 | Outpatient (REF) | payer MEDICARE, SELFPAY ==
--- OUTSIDE RECORDS SUMMARY | 2025-03-19 15:03 | XMS_ITS | Encounter Summary ---
Author Organization [facility] Address [address] [place] [address] Care Team Providers Care Vocational Counselor Name Role Phone Iraj Prabhakar MD Primary Care Provider [phone] Doreen Workman DO Primary Care Pro vider Unavailable Fabio Forman MD Unavailable Adriana Sewell MD Primary Care Provider [phone] Jeremias Yu HOTEL NIGHT AUDITOR Unavailable [phone] Jocelin Cleveland NP Unavailable [phone] Geoffrey Parekh MD Primary Care Provider María vailable Encounter Details Date Type Department Care Team Description 11/14/2013 Breakdown Man Report Medical Records [address] [place] [address] Rochelle Henning MD Social History Tobacco Use Types Packs/Day Years Used Date Smoking Tobacco: Former Smokeless Tobacco: Never Comments:quit in 1996 Alcohol Use Standard Drinks/Week Comments Yes 0 (1 standard drink = 0.6 oz pur e alcohol) occ Sex Assigned at Date Recorded Not on file Job Start Date Occupation Industry Not on file Not on file Not on file documented as of this encounter Plan of Treatment Not on file documented as of this encounter Visit Diagnoses Not on filedocumented in this encounter Care Teams Vocational Counselor Relationship Specialty Start Date End Date Iraj Prabhakar MD [address] [place], [place] [phone] PCP - General Internal Medicine 06/12/13 07/03/14 Doreen Workman DO [address] [place] [address] PCP - General Internal Medicine 07/04/14 09/23/20 Adriana Sewell MD [address] [place] [address] PCP - General Internal Medicine 09/24/20 03/15/23 Geoffrey Parekh MD [address] [place] [address] PCP - General Family Practice 03/16/23 Fabio Forman MD [address] [place] [address] Specialist Cardiology 06/04/20 Jeremias Yu NP [address] [place] [address] Nurse Practitioner Cardiology 12/15/20 Jocelin Cleveland NP [address] [place] [address] Cardiology 11/05/22 documented as of this encounter
--- OUTSIDE RECORDS SUMMARY | 2025-03-19 15:03 | XMS_ITS | Encounter Summary ---
Author Organization [facility] Address [address] [place] [address] Care Team Providers Care Backend Developer Name Role Phone Iraj Prabhakar MD Primary Care Provider [phone] Doreen Workman DO Primary Care Pro vider Unavailable Fabio Forman MD Unavailable Adriana Sewell MD Primary Care Provider Jeremias Yu INFRASTRUCTURE ANALYST Unavailable [phone] Jocelin Cleveland INFRASTRUCTURE ANALYST Unavailable [phone] Geoffrey Parekh MD Primary Care Provider María vailable Reason for Visit * Reason Onset Date Comments REFERRAL 10/02/2013 Encounter Details Date Type Department Care Team Description 10/02/2013 Telephone Urology [address] [place] [address] Juan Connell MD REFERRAL Social History Tobacco Use Types Packs/Day Years Used Date Smoking Tobacco: Former Smokeless Tobacco: Never Comments:quit in 1996 Alcohol Use Standard Drinks/Week Comments Yes 0 (1 standard drink = 0.6 oz pur e alcohol) occ Sex Assigned at Date Recorded Not on file Job Start Date Occupation Industry Not on file Not on file Not on file documented as of this encounter Miscellaneous Notes * Telephone Encounter - Iraj Prabhakar MD - 10/02/2013 2:53 PM EDT Yes pt follows with DR. James Erazo to and please cancel the referral * Telephone Encounter - Breanna Hayward - 10/02/2013 12:44 PM EDT FYI-Called pt to set up appointment for a referral to Urology re: will request a referral to Urology. Reason for referral: hematuria (gross) Priority: Next Available Payor: Not third-libertarian related Pt states she has been seeing a Urologist and does not need this appt. documented in this encounter Plan of Treatment Not on file documented as of this encounter Visit Diagnoses Not on filedocumented in this encounter Care Teams Backend Developer Relationship Specialty Start Date End Date Iraj Prabhakar MD [address] [place] [address] PCP - General Internal Medicine 06/12/13 07/03/14 Doreen Workman DO [address] [place] [address] PCP - General Internal Medicine 07/04/14 09/23/20 Adriana Sewell MD [address] [place] [address] PCP - General Internal Medicine 09/24/20 03/15/23 Geoffrey Parekh MD [address] [place] [address] PCP - General Family Practice 03/16/23 Fabio Forman MD [address] [place] [address] Specialist Cardiology 06/04/20 Jeremias Yu NP [address] [place] [address] Nurse Practitioner Cardiology 12/15/20 Jocelin Cleveland NP [address] [place] [address] Cardiology 11/05/22 documented as of this encounter
--- OUTSIDE RECORDS SUMMARY | 2025-03-19 15:04 | XMS_ITS | Encounter Summary ---
Author Organization [facility] Address [address] [place] [address] Care Team Providers Care Finishing Range Feeder Name Role Phone Doreen Workman DO Primary Care Pro vider Unavailable Fabio Forman MD Unavailable Adriana Sewell MD Primary Care Provider [phone] Jeremias Yu NP Unavailable Jocelin Cleveland NP Unavailable Geoffrey Parekh MD Primary Care Provider María vailable Encounter Details Date Type Department Care Team Description 10/26/2019 SCAN Medical Records [address] [place] [address] Abstract, Provider Social History Tobacco Use Types Packs/Day Years Used Date Smoking Tobacco: Former Smokeless Tobacco: Never Comments:quit in 1996 Alcohol Use Standard Drinks/Week Comments No 0 (1 standard drink = 0.6 oz pur e alcohol) occ Sex Assigned at Date Recorded Not on file Job Start Date Occupation Industry Not on file Not on file Not on file documented as of this encounter Plan of Treatment Not on file documented as of this encounter Procedures Procedure Name Priority Date/Time Associated Diagnosis Comments OUTSIDE EKG Routine 10/26/2019 documented in this encounter Results * OUTSIDE EKG (10/26/2019) Provider Default CARDIOLOGY documented in this encounter Visit Diagnoses Not on filedocumented in this encounter Care Teams Finishing Range Feeder Relationship Specialty Start Date End Date Doreen Workman DO PCP - General Internal Medicine 07/04/14 09/23/20 Adriana Sewell MD [address] [place] [address] PCP - General Internal Medicine 09/24/20 03/15/23 Geoffrey Parekh MD [address] [place] [address] PCP - General Family Practice 03/16/23 Fabio Forman MD Specialist Cardiology 06/04/20 Jeremias Yu NP [address] [place] [phone] Nurse Practitioner Cardiology 12/15/20 Jocelin Cleveland NP [address] [place] [address] Cardiology 11/05/22 documented as of this encounter
--- OUTSIDE RECORDS SUMMARY | 2025-03-19 15:04 | XMS_ITS | Encounter Summary ---
Author Organization [facility] Address [address] [place] [address] Care Team Providers Care Division Road Supervisor Name Role Phone Fabio Forman MD Unavailable [phone] Adriana Sewell MD Primary Care Provider [phone] Jeremias Yu HEALTH PLAN MANAGER Unavailable [phone] Jocelin Cleveland HEALTH PLAN MANAGER Unavailable [phone] Geoffrey Parekh MD Primary Care Provider María vailable Encounter Details Date Type Department Care Team Description 06/17/2022 Curator Horticultural Museum Report Medical Records [address] [place] [address] Nicky Bailey MD Social History Tobacco Use Types Packs/Day Years Used Date Smoking Tobacco: Former Smokeless Tobacco: Former Comments:quit in 1996 Alcohol Use Standard Drinks/Week Comments No 0 (1 standard drink = 0.6 oz pur e alcohol) occ Sex Assigned at Date Recorded Not on file Job Start Date Occupation Industry Not on file Not on file Not on file COVID-19 Exposure Response Date Recorded In the last 10 days, have yo u been in contact with someone who was confirmed or suspected to have Coronavirus/COVID-19? No / Unsure 06/15/2022 10:00 AM EST documented as of this encounter Plan of Treatment Not on file documented as of this encounter Visit Diagnoses Not on filedocumented in this encounter Care Teams Division Road Supervisor Relationship Specialty Start Date End Date Adriana Sewell MD [address] [place] [address] PCP - General Internal Medicine 09/24/20 03/15/23 Geoffrey Parekh MD [address] [place] [address] PCP - General Family Practice 03/16/23 Fabio Forman MD Specialist Cardiology 06/04/20 Jeremias Yu NP [address] [place] [address] Nurse Practitioner Cardiology 12/15/20 Jocelin Cleveland NP [address] [place] [address] Cardiology 11/05/22 documented as of this encounter
--- OUTSIDE RECORDS SUMMARY | 2025-03-19 15:04 | XMS_ITS | Encounter Summary ---
Author Organization [facility] Address [address] [place] [address] Care Team Providers Care Shipping And Receiving Operator Name Role Phone Iraj Prabhakar MD Primary Care Provider [phone] Doreen Workman DO Primary Care Pro vider Unavailable Fabio Forman MD Unavailable [phone] Adriana Sewell MD Primary Care Provider [phone] Jeremias Yu SILVICULTURE TEACHER Unavailable [phone] Jocelin Cleveland NP Unavailable [phone] Geoffrey Parekh MD Primary Care Provider María vailable Encounter Details Date Type Department Care Team Description 09/21/2013 Hair And Makeup Designer Report Medical Records [address] [place] [address] Fabio Forman MD [address] [place] [address] [phone] Social History Tobacco Use Types Packs/Day Years [...] on filedocumented in this encounter Care Teams Shipping And Receiving Operator Relationship Specialty Start Date End Date Iraj Prabhakar MD [address] [place] [address] PCP - General Internal Medicine 06/12/13 07/03/14 Doreen Workman DO [address] [place] [address] PCP - General Internal Medicine 07/04/14 09/23/20 Adriana Sewell MD [address] [place] [address] [phone] PCP - General Internal Medicine 09/24/20 03/15/23 Geoffrey Parekh MD [address] [place] [address] PCP - General Family Practice 03/16/23 Fabio Forman MD [address] [place] [address] [phone] Specialist Cardiology 06/04/20 Jeremias Yu NP [address] [place] [address] Nurse Practitioner Cardiology 12/15/20 Jocelin Cleveland NP [address] [place] [address] Cardiology 11/05/22 documented as of this encounter
--- OUTSIDE RECORDS SUMMARY | 2025-03-19 15:04 | XMS_ITS | Encounter Summary ---
Author Organization [facility] Address [address] [place] [address] Care Team Providers Care Bankruptcy Legal Assistant Name Role Phone Iraj Prabhakar MD Primary Care Provider [phone] Doreen Workman DO Primary Care Pro vider Unavailable Fabio Forman MD Unavailable Adriana Sewell MD Primary Care Provider Jeremias Yu OSTEOPATHIC NEUROLOGIST Unavailable Jocelin Cleveland OSTEOPATHIC NEUROLOGIST Unavailable [phone] Geoffrey Parekh MD Primary Care Provider María vailable Encounter Details Date Type Department Care Team Description 07/25/2013 Business Doc Medical Records [address] [place] [address] Abstract, Provider Social History Tobacco Use Types Packs/Day Years Used Date Smoking Tobacco: Former Comments:quit in 1996 Alcohol Use [...] on filedocumented in this encounter Care Teams Bankruptcy Legal Assistant Relationship Specialty Start Date End Date Iraj Prabhakar MD [address] [place] [address] PCP - General Internal Medicine 06/12/13 07/03/14 Doreen Workman DO [address] [place] [address] PCP - General Internal Medicine 07/04/14 09/23/20 Adriana Sewell MD [address] [place] [address] PCP - General Internal Medicine 09/24/20 03/15/23 Geoffrey Parekh MD [address] [place] [address] PCP - General Family Practice 03/16/23 Fabio Forman MD [address] [place] [address] Specialist Cardiology 06/04/20 Jeremias Yu NP [address] [place] [address] Nurse Practitioner Cardiology 12/15/20 Jocelin Cleveland NP [address] [place] [address] Cardiology 11/05/22 documented as of this encounter
--- OUTSIDE RECORDS SUMMARY | 2025-03-19 15:04 | XMS_ITS | Encounter Summary ---
Author Organization [facility] Address [address] [place] [address] Care Team Providers Care Fruit Stuffer Name Role Phone Fabio Forman MD Unavailable [phone] Adriana Sewell MD Primary Care Provider [phone] Jeremias Yu ALLERGIST IMMUNOLOGIST Unavailable [phone] Jocelin Cleveland ALLERGIST IMMUNOLOGIST Unavailable [phone] Geoffrey Paerkh MD Primary Care Provider María vailable Encounter Details Date Type Department Care Team Description 07/23/2021 Project Designer Report Medical Records [address] [place] [address] [place] Social History Tobacco Use Types Packs/Day Years [...] Exposure Response Date Recorded In the last month, have you been in contact with someone who was confirmed or suspected to have Coronavirus / COVID-19? No / Unsure 07/06/2021 8:33 AM EST documented as of this encounter Plan of Treatment Not on file documented as of this encounter Visit Diagnoses Not on filedocumented in this encounter Care Teams Fruit Stuffer Relationship Specialty Start Date End Date Adriana Sewell MD [address] [place] [address] PCP - General Internal Medicine 09/24/20 03/15/23 Geoffrey Parekh MD [address] [address] PCP - General Family Practice 03/16/23 Fabio Forman MD Specialist Cardiology 06/04/20 Jeremias Yu NP [address] [place] [address] Nurse Practitioner Cardiology 12/15/20 Jocelin Cleveland NP [address] [place] [address] [address] Cardiology 11/05/22 documented as of this encounter
--- OUTSIDE RECORDS SUMMARY | 2025-03-19 15:04 | XMS_ITS | Encounter Summary ---
Author Organization [facility] Address [address] [place] [address] Care Team Providers Care Circle Shear Operator Name Role Phone Iraj Prabhakar MD Primary Care Provider [phone] Doreen Workman DO Primary Care Pro vider Unavailable Fabio Forman MD Unavailable [phone] Adriana Sewell MD Primary Care Provider [phone] Jeremias Yu CAGE SHIFT MANAGER Unavailable Jocelin Cleveland CAGE SHIFT MANAGER Unavailable [phone] Geoffrey Parekh MD Primary Care Provider María vailable Encounter Details Date Type Department Care Team Description 03/01/2014 Transfer Records Medical Records [address] [place] [address] Abstract, Provider Social History Tobacco Use Types [...] on filedocumented in this encounter Care Teams Circle Shear Operator Relationship Specialty Start Date End Date Iraj Prabhakar MD [address] [place], [place] [phone] PCP - General Internal Medicine 06/12/13 07/03/14 Doreen Workman DO [address] [place] [address] PCP - General Internal Medicine 07/04/14 09/23/20 Adriana Sewell MD [address] [place] [address] PCP - General Internal Medicine 09/24/20 03/15/23 Geoffrey Parekh MD [address] [place] [address] PCP - General Family Practice 03/16/23 Faibo Forman MD [address] [place] [address] Specialist Cardiology 06/04/20 Jeremias Yu NP [address] [place] [address] Nurse Practitioner Cardiology 12/15/20 Jocelin Cleveland NP [address] [place] [address] Cardiology 11/05/22 documented as of this encounter
--- OUTSIDE RECORDS SUMMARY | 2025-03-19 15:04 | XMS_ITS | Encounter Summary ---
Author Organization [facility] Address [address] [place] [address] Care Team Providers Care Head Coach Name Role Phone Fabio Forman MD Unavailable CycJeremias sylvester NP Unavailable [phone] Jocelin Cleveland NP Unavailable [phone] Geoffrey Parekh MD Primary Care Provider María vailable Encounter Details Date Type Department Care Team Description 02/12/2024 Telephone Gastroenterology - [place] [address] [facility] [address] [place] [address] Leela Ojeda DScPAS Social History Tobacco Use Types Packs/Day Years Used Date Smoking Tobacco: Former Cigarettes 2 Q uit: 1996 Passive Smoke Exposure: Never Smokeless Tobacco: Never Alcohol Use Standard Drinks/Week Comments Not Currently 0 (1 standard drink = 0.6 oz pur e alcohol) Sex Assigned at Date Recorded Not on file Job Start Date Occupation Industry Not on file Not on file Not on file documented as of this encounter Miscellaneous Notes * Telephone Encounter - Leyla Gold C.M.A. - 02/13/2024 10:47 AM EDT 04/10/2024 Status: [facility] Appt Time: 10:40 AM I have patient scheduled for this date and time documented in this encounter Plan of Treatment Not on file documented as of this encounter Visit Diagnoses Not on filedocumented in this encounter Care Teams Head Coach Relationship Specialty Start Date End Date Geoffrey Parekh MD [address] [place] [address] PCP - General Family Practice 03/16/23 Fabio Forman MD Specialist Cardiology 06/04/20 Jeremias Yu NP Nurse Practitioner Cardiology 12/15/20 Jocelin Cleveland NP [address] [place] [address] Cardiology 11/05/22 documented as of this encounter
--- OUTSIDE RECORDS SUMMARY | 2025-03-19 15:04 | XMS_ITS | Clinical Summary ---
Author Organization [facility] Address [address] [place] [address] Care Team Providers Care Microbiological Laboratory Technician Name Role Phone Fabio Forman MD Unavailable [phone] CycJeremias sylvester NP Unavailable [phone] Jocelin Cleveland NP Unavailable Geoffrey Parekh MD Primary Care Provider María vailable Allergies No known active allergies Medications Medication Sig Dispensed Refills Start Date End Date Status Multiple Vitamin (MULTI-VITAMIN OR) Take 1 Tab by mouth daily. 0 Active trazodone (DESYREL) 50 MG tablet Take 3 Tabs by mouth at bedtime. 0 Active Ascorbic Acid (VITAMIN C) 1000 MG tablet Take 1,000 mg by mouth daily. 0 Active diazepam (VALIUM) 5 MG tablet Take 10 mg by mouth at bedtime. 0 Active ferrous sulfate (FEROSUL) 325 (65 Fe) MG tablet Take 1 tablet by mouth daily. 90 Tab 3 08/30/2019 Active dorzolamide-timolo l (COSOPT) 22.3-6.8 MG/ML ophthalmic solution apply 1 Drop to the eye 2 times daily. Instill 1 drop into each eye twice daily 0 10/14/2021 Active Cholecalciferol (Vitamin D3) 50 MCG (2000 UT) Cap Take 1 Capsule by mouth daily. 0 Active nitroGLYCERIN (NITROSTAT) 0.[address] 1 Tablet under the tongue every 5 minutes as needed for Chest pain. 25 Tablet 2 01/05/2022 Active memantine (NAMENDA) 10 MG tablet TAKE 1 TABLET BY MOUTH TWICE DAILY 0 01/04/2022 Active duloxetine (CYMBALTA) 30 MG capsule Take 2 Capsules by mouth daily. 0 Active metoprolol (TOPROL-XL) 25 MG 24 hr tablet Take 1 Tablet by mouth daily. 90 Tablet 1 11/16/2022 Active Apixaban 5 MG Tab Take 5 mg by mouth 2 times daily. 180 Tablet 1 11/16/2022 Active rosuvastatin (CRESTOR) 20 MG tablet Take 1 Tablet by mouth daily. 90 Tablet 1 11/16/2022 Active levothyroxine (SYNTHROID, LEVOTHROID) 88 MCG tablet Take 1 Tablet by mouth daily. And one day per week take an extra tab, total 8 tabs weekly 104 Tablet 1 01/14/2023 Active omeprazole (PRILOSEC) 40 MG capsule Take 1 Capsule by mouth 2 times daily. 180 Capsule 0 01/29/2023 Active lisinopril (PRINIVIL,ZESTRIL) 40 MG tabletIndications: Coronary artery disease involving egegik coronary artery of egegik heart without angina pectoris TAKE 1 TABLET BY MOUTH DAILY 90 Tablet 1 02/16/2023 Active cetirizine (ZYRTEC) 10 MG tablet Take 1 Tablet by mouth daily. 0 Active furosemide (LASIX) 40 MG tablet Take 1 Tablet by mouth daily. 0 Active Dapagliflozin Propanediol (Farxiga) 5 MG TabIndications:Chr onic diastolic congestive heart failure (HCC) Take 5 mg by mouth daily. 90 Tablet 3 10/27/2023 Active isosorbide mononitrate (IMDUR) 60 MG 24 hr tablet Take 1 Tablet by mouth daily. 180 Tablet 1 11/30/2023 Active amiodarone (PACERONE) 200 MG tablet TAKE 1 TABLET BY MOUTH DAILY 90 Tablet 1 12/26/2023 Active bisacodyl (Dulcolax) 5 MG EC tablet Take 2 tabs by mouth right before beginning bowel prep. Follow instructions given by office for timing. 2 Tablet 0 12/27/2023 Active polyethylene glycol (GoLYTELY,NuLYTELY ) 236 g suspension Take 240 mL by mouth once for 1 dose. Take 4L by mouth once for one dose. May substitue any PEG. Starting at 6PM the night before your procedure drink 1 8oz glasses at your own pace until rectals run clear. 4000 mL 0 12/27/2023 Active Active Problems Problem Noted Date Acute on chronic heart failure with pres erved ejection fraction 10/26/2023 Sick sinus syndrome 04/01/2023 Hx of CABG 04/01/2023 CHF (congestive heart failure) Atrial fibrillation 11/08/2022 Last Assessment & Plan: The patient presents today for triage visit for recent remote alert on her dual-chamber pacemaker noting new atrial fibrillation. She is not currently on anticoagulation or rate control therapy. EKG today atrial fibrillation with RVR with a rate of 135 BPM. She appears hemodynamically stable, reporting shortness of breath on exertion with occasional palpitations and bilateral lower extremity edema. At this point, the patient requires further monitoring in the emergency room for potential IV medications to control her heart rates and possible DCCV. All questions answered. We discussed atrial fibrillation and its pathophysiology. She will be driven by her friend to [facility] ER. I also called her son per patient request and all questions were answered. Diastolic dysfunction 06/17/2022 Last Assessment & Plan: Echocardiogram in August 2022 showed grade 3 diastolic dysfunction. On physical exam today, she appears to have bilateral lower extremity edema and she is reporting shortness of breath on exertion. This may be in the setting of her atrial fibrillation with rapid ventricular response. She will be seen in the emergency room for further evaluation as outlined below. Insomnia 06/17/2022 Glaucoma 06/17/2022 Morbid obesity with BMI of 45.0-49.9, ad ult 05/04/2021 OAB (overactive bladder) 05/04/2021 Overview: Dr. Henning Prediabetes 05/04/2021 Mild dementia 10/06/2020 Overview: Dr. Bernard History of angiodysplasia of intestinal tract 10/03/2017 Bilateral carpal tunnel syndrome 018 Overview: 08/22/2017 - bilateral depo-medrol 20 mg injections Hiatal hernia 08/01/2017 B12 deficiency 05/20/2017 Iron deficiency anemia due to chronic bl ood loss 08/19/2016 Generalized osteoarthritis 02/20/2015 Obstructive sleep apnea AHI 7 03/22/2014 Overview: UNTREATED (Apr 2021, FEB 2022) cx pulmo 08/17/16 [facility] Polysomnogram: Date 05/12/2019; Wt 280#; [...] mostly hypopneas; without sleep related hypoventilation by 2018 polysomnogram. 07/05/2016 to 08/03/2016. CPAP@ 6-16/Average 14.5/Max 15.2. 93% compliant with using the machine for >4 hours/day. Average use is 8 hours a night with AHI 1.9. Anxiety 10/23/2013 CAD (coronary artery disease) Overview: cabg x 4 Last Assessment & Plan: The patient has a history of coronary artery disease status post four-vessel coronary artery bypass with VERNON to LAD, ROBERT to PDA, SVG to OM1 and SVG to OM 2 in 1997. She denies chest pain. She continues on cardioprotective medical therapy with isosorbide mononitrate, rosuvastatin, and aspirin. Migraines Fibromyalgia GERD (gastroesophageal reflux disease) Essential hypertension, benign Hypothyroid High cholesterol Pacemaker Overview: mri compatabile Resolved Problems Problem Noted Date Resolved Date Acute respiratory failure with hypoxia 3 07/12/2022 Rhinovirus infection 06/17/2022 07/12/2022 COPD exacerbation 06/17/2022 07/12/2022 Lower extremity edema 06/17/2022 10/20/2022 Fatigue 04/09/2022 05/18/2022 Class 3 severe obesity due t o excess calories with serious comorbidity and body mass index (BMI) of 45.0 to 49.9 in adult 11/03/2017 05/04/2021 Left wrist tendinitis 04/11/2017 08/22/2017 Immunizations Name Administration Dates Next Due COVID-19 (Moderna) 10/14/2021,,07/25/2020,06/27 COVID-19 (Pfizer) 02/24/2023 Covid-19 Bivalent (Moderna) 02/19/2022 Covid-19 Bivalent (Pfizer) 02/19/2022 Flu (Generic) 02/09/2014,04/29/2006 Influenza (> 6 Months) 02/23/2015,02/09/2014 Influenza (>6 Months) Split Preservative Free 01/24/2020 Influenza Flu (PT Reported) 02/24/2023, 7 Influenza vaccine high dose age 65 and over 02/24/2023,01/27/2022,01/30/2021,01/23,02/28/2018,01/26/2017 Pneumoccoccal(Adult) Polysac charide PPSV23 01/24/2020,09/27/2007 Pneumococcal Conjugate PCV-13 11/28/2017 Shingrix (Patient reported) 01/24/2020 Shingrix (Recombinant zoster vaccine) 03/24/2020 ,01/24/2020 TD (STATE SUPPLIED FOR ADULT S AND CHILDREN) 05/25/2004 Tdap 01/24/2020,10/17/2012 Zostavax (Patient Reported) 10/01/2011 Family History Medical History Relation Name Comments CA Lung Brother CA Breast Negative Hx Relation Name Status Comments Brother Social [...] Sign Reading Time Taken Comments Blood Pressure 130/70 10/27/2023 3:59 PM EDT Pulse 63 10/27/2023 3:59 PM EDT Temperature 36.8 C (98.2 F) 03/01/2023 9:35 AM EDT Respiratory Rate 16 11/16/2022 10:0 0 AM EDT Oxygen Saturation 94% 10/27/2023 3:59 PM EDT Inhaled Oxygen Concentration - - Weight 132.8 kg (292 lb 12.8 oz) 10/27/2023 3:59 PM EDT Height 157.5 cm (5' 2 ) 10/27/2023 3:59 PM EDT Body Mass Index 53.55 10/27/2023 3:59 PM EDT Plan of Treatment Health Maintenance Due Date Last Done Comments BONE DENSITY SCREENING 09/03/2022 , 02/01/2018, 06/03/2014 DEPRESSION SCREEN 10/21/2023 10/20/2022, (Completed), 10/15/2021, Additional history exists FALL RISK ASSESSMENT 10/21/2023 10/20/2022 (Completed), 10/15/2021, 02/04/2021, Additional history exists BMI CHECK/ADVISE 05/23/2024 10/27/2023, 10/2023, 04/01/2023, Additional history exists MAMMOGRAM 01/01/2025 01/02/2024, 0807/2022, 12/22/2021, Additional history exists Covid-19 Vaccine (2022-06 4 season) 2025 02/24/2023, 02/19/2022, 02/19/2022, Additional history exists INFLUENZA (#1) 2025 02/24/2023, 10/0 09/2022, 01/27/2022, Additional history exists CHOLESTEROL SCREENING 10/21/2027 10/20/2022 , 10/15/2021, 12/18/2020, Additional history exists DTAP/TDAP/TD (3 - Td or Tdap) 01/23/2030, 10/17/2012, 05/25/2004 HEPATITIS C SCREENING Completed 04/05/2016 PNEUMOCOCCAL VACCINE Completed 01/24/2020, 11/28/2017, 09/27/2007 SHINGLES VACCINE Completed 03/24/2020, 07/2019, 01/24/2020 Care Teams Microbiological Laboratory Technician Relationship Specialty Start Date End Date Geoffrey Parekh MD [address] [place] [address] PCP - General Family Practice 03/16/23 Fabio Forman MD Specialist Cardiology 06/04/20 Jeremias Yu NP Nurse Practitioner Cardiology 12/15/20 Jocelin Cleveland NP [address] [place] [address] [phone] (work) Cardiology 11/05/22
--- OUTSIDE RECORDS SUMMARY | 2025-03-19 15:04 | XMS_ITS | Encounter Summary ---
Author Organization [facility] Address [address] [place] [address] Care Team Providers Care Extractor Filler Name Role Phone Fabio Forman MD Unavailable Jeremias Yu NP Unavailable Jocelin Cleveland NP Unavailable Geoffrey Parekh MD Primary Care Provider María vailable Encounter Details Date Type Department Care Team Description 01/10/2024 Hospital Medical Records [address] [place] [address] Day Smith MD [address] [place] [address] Social History Tobacco Use Types Packs/Day Years [...] on filedocumented in this encounter Care Teams Extractor Filler Relationship Specialty Start Date End Date Geoffrey Parekh MD [address] [place] [address] PCP - General Family Practice 03/16/23 Fabio Forman MD Specialist Cardiology 06/04/20 Jeremias Yu NP Nurse Practitioner Cardiology 12/15/20 Jocelin Cleveland, HANNAH [address] [place] [address] Cardiology 11/05/22 documented as of this encounter
--- OUTSIDE RECORDS SUMMARY | 2025-03-19 15:04 | XMS_ITS | Encounter Summary ---
Author Organization [facility] Address [address] [place] [address] Care Team Providers Care Document Preparer Microfilming Name Role Phone Fabio Forman MD Unavailable [phone] Adriana Sewell MD Primary Care Provider [phone] Jeremias Yu NP Unavailable Jocelin Cleveland NP Unavailable [phone] Geoffrey Parekh MD Primary Care Provider María vailable Reason for Referral * EXTERNAL (Routine) - Authorized/Booked Specialty Diagnoses / Procedures Referred By Joon greenfield Referred To Contact Pulmonology Diagnoses Obstructive sleep apnea Procedures REFERRAL TO PULMONOLOGY Arpita Zavala PA-C [address] [place] [address] Nicky Bailey MD [facility] [address] [place] [id number] Referral ID Status Reason Start Date Expiration Date V isits Requested Visits Authorized [id number] Authorized/B ooked 04/30/2022 08/02/2022 1 1 Reason for Visit * Reason Onset Date Comments Sleep Study 04/30/2022 REFERRAL 04/30/2022 THoNE PULM unabl e to accomodate [place] referrals Encounter Details Date Type Department Care Team Description 04/30/2022 Telephone Adult Medicine [facility] [address] [place] [address] Arpita Zavala PA-C [address] [place] [address] Sleep Study; REFERRAL (NATALIOoNE PULM unable to accomodate [place] referrals) Social History Tobacco Use Types Packs/Day Years [...] suspected to have Coronavirus/COVID-19? No / Unsure 04/12/2022 7:44 AM EST documented as of this encounter Miscellaneous Notes * Telephone Encounter - Arpita Zavala PA-C - 04/30/2022 6:13 PM EST Received staff message from Varinder Solitario on 04/29 at 9:42 AM indicating [facility] pulmonology is no longer managing [place] and to referral to Dr. Bailey. Arpita Zavala PA-C documented in this encounter Plan of Treatment Not on file documented as of this encounter Visit Diagnoses Diagnosis Obstructive sleep apnea AHI 7- Primary Obstructive sleep apnea (adult) (pediatric) documented in this encounter Care Teams Document Preparer Microfilming Relationship Specialty Start Date End Date Adriana Sewell MD [address] [place] [address] PCP - General Internal Medicine 09/24/20 03/15/23 Geoffrey Parekh MD [address] [place] [address] PCP - General Family Practice 03/16/23 Fabio Forman MD Specialist Cardiology 06/04/20 Jeremias Yu NP [address] [place] [address] Nurse Practitioner Cardiology 12/15/20 Jocelin Cleveland, HANNAH [address] [place] [address] [address] Cardiology 11/05/22 documented as of this encounter
--- OUTSIDE RECORDS SUMMARY | 2025-03-19 15:04 | XMS_ITS | Encounter Summary ---
Author Organization [facility] Address [address] [place] [address] Care Team Providers Care Press Room Supervisor Name Role Phone Doreen Workman DO Primary Care Pro vider Unavailable Fabio Forman MD Unavailable [phone] Adriana Sewell MD Primary Care Provider [phone] Jeremias Yu NP Unavailable Jocelin Cleveland NP Unavailable Geoffrey Parekh MD Primary Care Provider María vailable Reason for Referral * EXTERNAL (Routine) - Authorized/Booked Specialty Diagnoses / Procedures Referred By Joon greenfield Referred To Contact Neurology Procedures REFERRAL TO NEUROLOGY Carolina Steven PA [address] [place] [id number] [place] [address] [facility] [address], [address] [place] [id number] Referral ID Status Reason Start Date Expiration Date V isits Requested Visits Authorized SEE NOTE Authorized/B ooked 11/21/2019 03/01/2020 1 1 Reason for Visit * Reason Onset Date Comments REFERRAL 11/20/2019 Encounter Details Date Type Department Care Team Description 11/20/2019 Telephone Adult Medicine [facility] [address] [place] [address] Carolina Steven PA REFERRAL Social History Tobacco Use Types Packs/Day [...] encounter Miscellaneous Notes * Telephone Encounter - Gianna Adler C.M.A. - 11/22/2019 12:48 PM EDT Notes requested * Telephone Encounter - Gianna Adler C.M.A. - 11/21/2019 8:30 AM EDT Office isnt open yet, will try again later [phone] * Telephone Encounter - Carolina Donald PA-C - 11/21/2019 8:02 AM EDT Please notify aptient referral placed. Can we we please get Dwight alvarado. Thank you. * Telephone Encounter - Asiya Solorzano M.A. - 11/20/2019 4:12 PM EDT Referral is pended for second opinion to neuro * Telephone Encounter - Ariana Garcia - 11/20/2019 8:36 AM EDT Caller requesting call back from provider: Is the caller the patient? YES If caller is not the patient, what is the callers name? Callers relationship to patient? If person calling is not the patient themselves, is there a verbal release in FYI or permanent comments for this person: Reason for call back: Patient called and state that she was referred to [facility] (Neurology) by Carolina Donald for her worsening short term memory loss, 1 episode of confusion . Patient state that she was not satisfied with Dr. Quintanilla. Patient wanted to know if Carolina could refer her to another Neurologist? Patient state that she did not know of one. Caller offered to speak with the nurse for assistance: YES Response: Patient offered to speak with nurse for assistance and patient agreed. Message forwarded to nurse. documented in this encounter Plan of Treatment Not on file documented as of this encounter Visit Diagnoses Not on filedocumented in this encounter Care Teams Press Room Supervisor Relationship Specialty Start Date End Date Doreen Workman DO PCP - General Internal Medicine 07/04/14 09/23/20 Adriana Sewell MD [address] [place] [address] PCP - General Internal Medicine 09/24/20 03/15/23 Geoffrey Parekh MD [address] [place] [address] PCP - General Family Practice 03/16/23 Fabio Forman MD Specialist Cardiology 06/04/20 Jeremias Yu NP [address] [place] [address] Nurse Practitioner Cardiology 12/15/20 Jocelin Cleveland NP [address] [place] [address] Cardiology 11/05/22 documented as of this encounter
--- OUTSIDE RECORDS SUMMARY | 2025-03-19 15:04 | XMS_ITS | Encounter Summary ---
Author Organization [facility] Address [address] [place] [address] Care Team Providers Care Ocean Lifeguard Specialist Name Role Phone Fabio Forman MD Unavailable [phone] Adriana Sewell MD Primary Care Provider [phone] Jeremias Yu SKIING INSTRUCTOR Unavailable Jocelin [place] NP Unavailable Geoffrey Parekh MD Primary Care Provider María vailable Reason for Visit * Reason Onset Date Comments Faxed Order 06/01/2022 [facility] Encounter Details Date Type Department Care Team Description 06/01/2022 Telephone Adult Medicine [facility] [address] [place] [address] [phone] Adriana Sewell MD [address] [place] [address] [phone] Faxed Order ([facility] ) Social History Tobacco Use Types Packs/Day Years [...] suspected to have Coronavirus/COVID-19? No / Unsure 05/25/2022 12:40 PM EST documented as of this encounter Plan of Treatment Not on file documented as of this encounter Visit Diagnoses Not on filedocumented in this encounter Care Teams Ocean Lifeguard Specialist Relationship Specialty Start Date End Date Adriana Sewell MD [address] [place] [address] 26011 PCP - General Internal Medicine 09/24/20 03/15/23 Geoffrey Parekh MD [address] [place] [address] 89063 PCP - General Family Practice 03/16/23 Fabio Forman MD Specialist Cardiology 06/04/20 Jeremias Yu NP [address] [place] [address] 14880 Nurse Practitioner Cardiology 12/15/20 Jocelin [place] NP [address] [place] [address] 76215 Cardiology 11/05/22 documented as of this encounter
--- OUTSIDE RECORDS SUMMARY | 2025-03-19 15:04 | XMS_ITS | Encounter Summary ---
Author Organization [facility] Address [address] [place] [address] Care Team Providers Care Long Chain Quiller Tender Name Role Phone Iraj Prabhakar MD Primary Care Provider Doreen Workman DO Primary Care Pro vider Unavailable Fabio Forman MD Unavailable [phone] Adriana Sewell MD Primary Care Provider [phone] Jeremias Yu LAW SECRETARY Unavailable Jocelin [place] NP Unavailable [phone] Geoffrey Parekh MD Primary Care Provider María vailable Encounter Details Date Type Department Care Team Description 02/01/2014 Weed Inspector Report Medical Records [address] [place] [address] 46861 Fabio Forman MD [address] [place] [address] [phone] Social History Tobacco Use Types Packs/Day Years [...] on filedocumented in this encounter Care Teams Long Chain Quiller Tender Relationship Specialty Start Date End Date Iraj Prabhakar MD [address] [place] [address] 78908 PCP - General Internal Medicine 06/12/13 07/03/14 Doreen Workman DO [address] [place] [address] 31873 PCP - General Internal Medicine 07/04/14 09/23/20 Adriana Sewell MD [address] [place] [address] [phone] PCP - General Internal Medicine 09/24/20 03/15/23 Geoffrey Parekh MD [address] [place] [address] 37135 PCP - General Family Practice 03/16/23 Fabio Forman MD [address] [place] [address] [phone] Specialist Cardiology 06/04/20 Jeremias Yu NP [address] [place] [address] 31999 Nurse Practitioner Cardiology 12/15/20 Jocelin [place] NP [address] [place] [address] 14606 Cardiology 11/05/22 documented as of this encounter
--- OUTSIDE RECORDS SUMMARY | 2025-03-19 15:04 | XMS_ITS | Encounter Summary ---
Author Organization [facility] Address [address] [place] [address] Care Team Providers Care Collar Band Creaser Name Role Phone Iraj Prabhakar MD Primary Care Provider [phone] Doreen Workman DO Primary Care Pro vider Unavailable Fabio Forman MD Unavailable [phone] Adriana Sewell MD Primary Care Provider [phone] Jeremias Yu WELDING SETTER Unavailable [phone] Jocelin [place] WELDING SETTER Unavailable [phone] Geoffrey Parekh MD Primary Care Provider María vailable Encounter Details Date Type Department Care Team Description 09/06/2013 Hospital Medical Records [address] [place] [address] Geoffrey Apple Social History Tobacco Use Types Packs/Day Years [...] on filedocumented in this encounter Care Teams Collar Band Creaser Relationship Specialty Start Date End Date Iraj Prabhakar MD [address] [place], [place] [phone] PCP - General Internal Medicine 06/12/13 07/03/14 Doreen Workman DO [address] [place] [address] 17534 PCP - General Internal Medicine 07/04/14 09/23/20 Adriana Sewell MD [address] [place] [address] 15049 PCP - General Internal Medicine 09/24/20 03/15/23 Geoffrey Parekh MD [address] [place] [address] 68515 PCP - General Family Practice 03/16/23 Fabio Forman MD [address] [place] [address] 23038 Specialist Cardiology 06/04/20 Jeremias Yu NP [address] [place] [address] 09776 Nurse Practitioner Cardiology 12/15/20 Jocelin [place] NP [address] [place] [address] 11941 Cardiology 11/05/22 documented as of this encounter
--- OUTSIDE RECORDS SUMMARY | 2025-03-19 15:04 | XMS_ITS | Encounter Summary ---
Author Organization [employer] [facility] Address [address] [place] [address] Care Team Providers Care Head Baker Name Role Phone Fabio Forman MD Unavailable [phone] Adriana Sewell MD Primary Care Provider [phone] Jeremias Yu PRIMARY EDUCATION PROFESSOR Unavailable [phone] Jocelin [place] PRIMARY EDUCATION PROFESSOR Unavailable [phone] Geoffrey Parekh MD Primary Care Provider Maraí vailable Encounter Details Date Type Department Care Team Description 08/26/2022 SCAN Medical Records [address] [place] [address] [facility] Social History Tobacco Use Types Packs/Day Years [...] filedocumented in this encounter Care Teams Head Baker Relationship Specialty Start Date End Date Adriana Sewell MD [address] [place], [place] [phone] PCP - General Internal Medicine 09/24/20 03/15/23 Geoffrey Parekh MD [address] [place] [address] 11882 PCP - General Family Practice 03/16/23 Fabio Forman MD Specialist Cardiology 06/04/20 Jeremias Yu NP [address] [place] [address] 23233 Nurse Practitioner Cardiology 12/15/20 Jocelin [place] NP [address] [place] [address] 25834 Cardiology 11/05/22 documented as of this encounter
--- OUTSIDE RECORDS SUMMARY | 2025-03-19 15:04 | XMS_ITS | Encounter Summary ---
Author Organization [facility] Address [address] [place] [address] Care Team Providers Care Sign Builder Supervisor Name Role Phone Doreen Workman DO Primary Care Pro vider Unavailable Fabio Forman MD Unavailable Adriana Sewell MD Primary Care Provider [phone] Jeremias Yu SENIOR MANUFACTURING TEST ENGINEER Unavailable Jocelin [place] NP Unavailable Geoffrey Parekh MD Primary Care Provider María vailable Encounter Details Date Type Department Care Team Description 07/03/2019 Attending Ambulatory Care Report Medical Records [address] [place] [address] 6[address]26 [facility] Social History Tobacco Use Types Packs/Day Years [...] on filedocumented in this encounter Care Teams Sign Builder Supervisor Relationship Specialty Start Date End Date Doreen Workman DO PCP - General Internal Medicine 07/04/14 09/23/20 Adriana Sewell MD [address] [place] [address] [phone] PCP - General Internal Medicine 09/24/20 03/15/23 Geoffrey Parekh MD [address] [place] [address] 50461 PCP - General Family Practice 03/16/23 Fabio Forman MD Specialist Cardiology 06/04/20 Jeremias Yu NP [address] [place] [address] 65664 Nurse Practitioner Cardiology 12/15/20 Jocelin [place] NP [address] [place] [address] 70174 Cardiology 11/05/22 documented as of this encounter
--- OUTSIDE RECORDS SUMMARY | 2025-03-19 15:04 | XMS_ITS | Encounter Summary ---
Author [facility] Address [address] [place] [address] Care Team Providers Care Grocery Packer Name Role Phone Doreen Workman DO Primary Care Pro vider Unavailable Fabio Forman MD Unavailable [phone] Adriana Sewell MD Primary Care Provider Jeremias Yu ACADEMIC ADVISER Unavailable Jocelin [place] NP Unavailable Geoffrey Parekh MD Primary Care Provider María vailable Encounter Details Date Type Department Care Team Description 11/19/2019 Set And Exhibit Designer Report Medical Records [address] [place] [address] 97962 Aaron Quintanilla MD Social History Tobacco Use Types Packs/Day [...] on filedocumented in this encounter Care Teams Grocery Packer Relationship Specialty Start Date End Date Doreen Workman DO PCP - General Internal Medicine 07/04/14 09/23/20 Adriana Sewell MD [address] [place] [address] [phone] PCP - General Internal Medicine 09/24/20 03/15/23 Geoffrey Parekh MD [address] [place] [address] 17187 PCP - General Family Practice 03/16/23 Fabio Forman MD Specialist Cardiology 06/04/20 Jeremias Yu NP [address] [place] [address] 22079 Nurse Practitioner Cardiology 12/15/20 Jocelin [place] NP [address] [place] [address] 92588 Cardiology 11/05/22 documented as of this encounter
--- OUTSIDE RECORDS SUMMARY | 2025-03-19 15:04 | XMS_ITS | Encounter Summary ---
Author Organization [facility] Address [address] [place] [address] Care Team Providers Care Animal Care Technician Name Role Phone Doreen Workman DO Primary Care Pro vider Unavailable Fabio Forman MD Unavailable Adriana Sewell MD Primary Care Provider [phone] Jeremias Yu VENETIAN BLIND ASSEMBLER Unavailable Jocelin [place] NP Unavailable Geoffrey Parekh MD Primary Care Provider María vailable Encounter Details Date Type Department Care Team Description 10/17/2019 Ladle Car Operator Report Medical Records [address] [place] [address] 55[address] Yarely Huang, TYRELL Social History Tobacco Use Types Packs/Day Years [...] on filedocumented in this encounter Care Teams Animal Care Technician Relationship Specialty Start Date End Date Doreen Workman DO PCP - General Internal Medicine 07/04/14 09/23/20 Adriana Sewell MD [address] [place] [address] [phone] PCP - General Internal Medicine 09/24/20 03/15/23 Geoffrey Parekh MD [address] [place] [address] 47161 PCP - General Family Practice 03/16/23 Fabio Forman MD Specialist Cardiology 06/04/20 Jeremias Yu NP [address] [place] [address] 51857 Nurse Practitioner Cardiology 12/15/20 Jocelin [place] NP [address] [place] [address] 77519 Cardiology 11/05/22 documented as of this encounter
--- OUTSIDE RECORDS SUMMARY | 2025-03-19 15:04 | XMS_ITS | Encounter Summary ---
Author Organization [facility] Address [address] [place] [address] Care Team Providers Care Tool Crib Supervisor Name Role Phone Fabio Forman MD Unavailable CycJeremias sylvester NP Unavailable Jocelin [place] NP Unavailable [phone] Geoffrey Parekh MD Primary Care Provider María vailable Encounter Details Date Type Department Care Team Description 01/12/2024 Orders Only Medical Records [address] [place] [address] Day Smith MD [address] [place], [place] [phone] Social History Tobacco Use Types Packs/Day Years [...] on file documented as of this encounter Progress Notes * Filiberto Smith MD - 02/09/2024 6:25 PM EDT Dear Chasity, The polyp(s) that were removed during your colonoscopy was benign. Based on the number, the size, and the features of the polyp(s) removed, I no longer recommend a follow-up colonoscopy unless you have issues in the future. The biopsies of your duodenum and your stomach are within normal limits. documented in this encounter Plan of Treatment Not on file documented as of this encounter Procedures Procedure Name Priority Date/Time Associated Diagnosis Comments OUTSIDE COLONOSCOPY Routine 01/10/2024 OUTSIDE PATHOLOGY Routine 01/10/2024 documented in this encounter Results * OUTSIDE COLONOSCOPY (01/10/2024) Day Smith MD RADIOLOGY * OUTSIDE PATHOLOGY (01/10/2024) Day Smith MD OUTSIDE LAB documented in this encounter Visit Diagnoses Not on filedocumented in this encounter Care Teams Tool Crib Supervisor Relationship Specialty Start Date End Date Geoffrey Parekh MD [address] [place] [address] 46687 PCP - General Family Practice 03/16/23 Fabio Forman MD Specialist Cardiology 06/04/20 Jeremias Yu NP Nurse Practitioner Cardiology 12/15/20 Jocelin [place] NP [address] [place] [address] 01107 Cardiology 11/05/22 documented as of this encounter
--- OUTSIDE RECORDS SUMMARY | 2025-03-19 15:04 | XMS_ITS | Encounter Summary ---
Author Organization [facility] Address [address] [place] [address] Care Team Providers Care Experimental Physicist Name Role Phone Fabio Forman MD Unavailable Adriana Sewell MD Primary Care Provider [phone] Jeremias Yu NP Unavailable [phone] Jocelin [place] NP Unavailable [phone] Geoffrey Parekh MD Primary Care Provider María vailable Encounter Details Date Type Department Care Team Description 05/10/2022 [facility] Medical Records [address] [place], [place] [phone] [place] [address] Social History Tobacco Use Types Packs/Day Years [...] suspected to have Coronavirus/COVID-19? No / Unsure 05/09/2022 1:38 PM EST documented as of this encounter Plan of Treatment Not on file documented as of this encounter Procedures Procedure Name Priority Date/Time Associated Diagnosis Comments OUTSIDE ECHO Routine 05/12/2022 OUTSIDE LAB Routine 05/12/2022 OUTSIDE VASCULAR STUDY Routine 05/11/[address] Routine 05/11/2022 OUTSIDE PLAIN FILM Routine 05/10/2022 documented in this encounter Results * OUTSIDE LAB (05/12/2022) Provider Abstract LAB * OUTSIDE ECHO (05/12/2022) Provider Abstract CARDIOLOGY * OUTSIDE CT (05/11/2022) Provider Abstract RADIOLOGY * OUTSIDE VASCULAR STUDY (05/11/2022) Provider Abstract CARDIOLOGY * OUTSIDE PLAIN FILM (05/10/2022) Provider Abstract RADIOLOGY documented in this encounter Visit Diagnoses Not on filedocumented in this encounter Care Teams Experimental Physicist Relationship Specialty Start Date End Date Adriana Sewell MD [address] [place] [address] 24334 PCP - General Internal Medicine 09/24/20 03/15/23 Geoffrey Parekh MD [address] [place] [address] 67386 PCP - General Family Practice 03/16/23 Fabio Forman MD Specialist Cardiology 06/04/20 Jeremias Yu NP [address] [place] [address] 56106 Nurse Practitioner Cardiology 12/15/20 Jocelin [place] NP [address] [place] [address] 94350 Cardiology 11/05/22 documented as of this encounter
--- OUTSIDE RECORDS SUMMARY | 2025-03-19 15:04 | XMS_ITS | Encounter Summary ---
Author Organization [facility] Address [address] [place] [address] Care Team Providers Care Tin Recovery Worker Name Role Phone Iraj Prabhakar MD Primary Care Provider [phone] Doreen Workman DO Primary Care Pro vider Unavailable Fabio Forman MD Unavailable [phone] Adriana Sewell MD Primary Care Provider [phone] Jeremias Yu SEPHORA PRODUCT CONSULTANT Unavailable Jocelin [place] NP Unavailable [phone] Geoffrey Parekh MD Primary Care Provider María vailable Encounter Details Date Type Department Care Team Description 09/04/2013 Hospital Medical Records [address] [place] [address] 60831 Mayito Power MD [address] [place] [address] [phone] Social History Tobacco Use Types Packs/Day Years [...] on filedocumented in this encounter Care Teams Tin Recovery Worker Relationship Specialty Start Date End Date Iraj Prabhakar MD [address] [place], [place] [phone] PCP - General Internal Medicine 06/12/13 07/03/14 Doreen Workman DO [address] [place] [address] 74796 PCP - General Internal Medicine 07/04/14 09/23/20 Adriana Sewell MD [address] [place] [address] 05303 PCP - General Internal Medicine 09/24/20 03/15/23 Geoffrey Parekh MD [address] [place] [address] 40918 PCP - General Family Practice 03/16/23 Fabio Forman MD [address] [place] [address] [phone] Specialist Cardiology 06/04/20 Jeremias Yu NP [address] [place] [address] 09982 Nurse Practitioner Cardiology 12/15/20 Jocelin [place] NP [address] [place] [address] [address] Cardiology 11/05/22 documented as of this encounter
--- OUTSIDE RECORDS SUMMARY | 2025-03-19 15:04 | XMS_ITS | Encounter Summary ---
Author Organization [facility] Address [address] [place] [address] Care Team Providers Care Medical Records Assistant Name Role Phone Iraj Prabhakar MD Primary Care Provider [phone] Doreen Workman DO Primary Care Pro vider Unavailable Fabio Forman MD Unavailable Adriana Sewell MD Primary Care Provider [phone] Jeremias Yu NP Unavailable [phone] Jocelin [place] NP Unavailable [phone] Geoffrey Parekh MD Primary Care Provider María vailable Encounter Details Date Type Department Care Team Description 09/05/2013 Hospital Medical Records [address] [place] [address] Social History Tobacco Use Types Packs/Day Years [...] Name Priority Date/Time Associated Diagnosis Comments OUTSIDE CARDIAC CATH Routine 09/05/2013 documented in this encounter Results * OUTSIDE CARDIAC CATH (09/05/2013) Provider Default CARDIOLOGY documented in this encounter Visit Diagnoses Not on filedocumented in this encounter Care Teams Medical Records Assistant Relationship Specialty Start Date End Date Iraj Prabhakar MD [address] [place] [address] 35685 PCP - General Internal Medicine 06/12/13 07/03/14 Philip Hightower DO Doreen [address] [place] [address] 03379 PCP - General Internal Medicine 07/04/14 09/23/20 Adriana Sewell MD [address] [place] [address] 27279 PCP - General Internal Medicine 09/24/20 03/15/23 Geoffrey Parekh MD [address] [place] [address] 68421 PCP - General Family Practice 03/16/23 Fabio Forman MD [address] [place] [address] 85676 Specialist Cardiology 06/04/20 Jeremias Yu NP [address] [place] [address] 31246 Nurse Practitioner Cardiology 12/15/20 Jocelin [place] NP [address] [place] [address] 27880 Cardiology 11/05/22 documented as of this encounter
--- OUTSIDE RECORDS SUMMARY | 2025-03-19 15:04 | XMS_ITS | Encounter Summary ---
Author Organization [facility] Address [address] [place] [address] Care Team Providers Care Oncology Radiation Physician Name Role Phone Doreen Workman DO Primary Care Pro vider Unavailable Fabio Forman MD Unavailable [phone] Adriana Sewell MD Primary Care Provider [phone] Jeremias Yu SECURITY MANAGER Unavailable Jocelin [place] NP Unavailable [phone] Geoffrey Parekh MD Primary Care Provider María vailable Encounter Details Date Type Department Care Team Description 10/01/2019 Highway Construction Inspector Report Medical Records [address] [place] [address] 94469 Yarely Huang, TYRELL Social History Tobacco Use [...] on filedocumented in this encounter Care Teams Oncology Radiation Physician Relationship Specialty Start Date End Date Doreen Workman DO PCP - General Internal Medicine 07/04/14 09/23/20 Adriana Sewell MD [address] [place] [address] [phone] PCP - General Internal Medicine 09/24/20 03/15/23 Geoffrey Parekh MD [address] [place] [address] 91774 PCP - General Family Practice 03/16/23 Fabio Forman MD Specialist Cardiology 06/04/20 Jeremias Yu NP [address] [place] [address] 56296 Nurse Practitioner Cardiology 12/15/20 Jocelin [place] NP [address] [place] [address] 25792 Cardiology 11/05/22 documented as of this encounter
--- OUTSIDE RECORDS SUMMARY | 2025-03-19 15:05 | XMS_ITS | Encounter Summary ---
Author Organization [facility] Address [address] [place] [address] Care Team Providers Care Surgical Specialist Name Role Phone Fabio Forman MD Unavailable Adriana Sewell MD Primary Care Provider [phone] Jeremias Yu CLOCKMAKER Unavailable Jocelin [place] NP Unavailable [phone] Geoffrey Parekh MD Primary Care Provider María vailable Encounter Details Date Type Department Care Team Description 12/16/2021 SCAN Medical Records [address] [place] [address] 95883 Beckie Fuentes MD Social History Tobacco Use Types Packs/Day [...] Name Priority Date/Time Associated Diagnosis Comments OUTSIDE LAB Routine 12/16/2021 documented in this encounter Results * OUTSIDE LAB (12/16/2021) Provider Abstract LAB documented in this encounter Visit Diagnoses Not on filedocumented in this encounter Care Teams Surgical Specialist Relationship Specialty Start Date End Date Adriana Sewell MD [address] [place] [address] 53815 PCP - General Internal Medicine 09/24/20 03/15/23 Geoffrey Parekh MD [address] [place] [address] 11733 PCP - General Family Practice 03/16/23 Fabio Forman MD Specialist Cardiology 06/04/20 Jeremias Yu NP [address] [place] [address] Nurse Practitioner Cardiology 12/15/20 Jocelin [place] NP [address] [place] [address] 51129 Cardiology 11/05/22 documented as of this encounter
--- OUTSIDE RECORDS SUMMARY | 2025-03-19 15:05 | XMS_ITS | Encounter Summary ---
Author Organization [facility] Address [address] [place] [address] Care Team Providers Care Scalping Machine Operator Name Role Phone Doreen Workman DO Primary Care Pro vider Unavailable Fabio Forman MD Unavailable Adriana Sewell MD Primary Care Provider Jeremias Yu OIL RAG WASHER Unavailable [phone] Jocelin [place] NP Unavailable [phone] Geoffrey Parekh MD Primary Care Provider María vailable Encounter Details Date Type Department Care Team Description 11/15/2019 Safety Council Director Report Medical Records [address] [place] [address] 70020 Juan R Bellamy Social History Tobacco Use Types Packs/Day Years [...] on filedocumented in this encounter Care Teams Scalping Machine Operator Relationship Specialty Start Date End Date Doreen Workman DO PCP - General Internal Medicine 07/04/14 09/23/20 Adriana Sewell MD [address] [place] [address] 01020 PCP - General Internal Medicine 09/24/20 03/15/23 Geoffrey Parekh MD [address] [place] [address] [address] PCP - General Family Practice 03/16/23 Fabio Forman MD Specialist Cardiology 06/04/20 Jeremias Yu NP [address] [place] [address] 78585 Nurse Practitioner Cardiology 12/15/20 Jocelin [place] NP [address] [place] [address] [address] Cardiology 11/05/22 documented as of this encounter
--- OUTSIDE RECORDS SUMMARY | 2025-03-19 15:05 | XMS_ITS | Encounter Summary ---
Author Organization [facility] Address [address] [place] [address] Care Team Providers Care Group Fitness Assistant Department Head Name Role Phone Doreen Workman DO Primary Care Pro vider Unavailable Fabio Forman MD Unavailable [phone] Adriana Sewell MD Primary Care Provider [phone] Jeremias Yu SEEDLING PULLER Unavailable Jocelin [place] NP Unavailable [phone] Geoffrey Parekh MD Primary Care Provider María vailable Encounter Details Date Type Department Care Team Description 11/14/2019 Press Pipe Inspector Report Medical Records [address] [place] [address] 81898 Rochelle Henning MD Social History Tobacco Use [...] on filedocumented in this encounter Care Teams Group Fitness Assistant Department Head Relationship Specialty Start Date End Date Doreen Workman DO PCP - General Internal Medicine 07/04/14 09/23/20 Adriana Sewell MD [address] [place] [address] 82546 PCP - General Internal Medicine 09/24/20 03/15/23 Geoffrey Parekh MD [address] [place] [address] 21345 PCP - General Family Practice 03/16/23 Fabio Forman MD Specialist Cardiology 06/04/20 Jeremias Yu NP [address] [place] [address] 16326 Nurse Practitioner Cardiology 12/15/20 Jocelin [place] NP [address] [place] [address] 45923 Cardiology 11/05/22 documented as of this encounter
--- OUTSIDE RECORDS SUMMARY | 2025-03-19 15:05 | XMS_ITS | Encounter Summary ---
Author Organization [facility] Address [address] [place] [address] Care Team Providers Care Canvas Marker Name Role Phone Fabio Forman MD Unavailable Adriana Sewell MD Primary Care Provider [phone] Jeremias Yu CUTTER MACHINE Unavailable Jocelin Cleveland CUTTER MACHINE Unavailable Geoffrey Parekh MD Primary Care Provider María vailable Reason for Visit * Reason Onset Date Comments Appointment Cancelled 09/02/2021 Encounter Details Date Type Department Care Team Description 09/02/2021 Telephone General Surgery - [place] [address] [facility] [address] [place] [address] Kelly Mckenna MD [address] [place] [address] [address] [place], [place] [id number] Appointment Cancelled Social History Tobacco Use Types Packs/Day Years [...] encounter Miscellaneous Notes * Telephone Encounter - Kelly Mckenna MD - 09/03/2021 8:55 AM EDT [place]. Congratulations to the cardiovascular or nurse involved. * Telephone Encounter - Rama Arellano - 09/02/2021 9:55 AM EDT Patient is losing weight on her own and no longer wishes to be in the program. documented in this encounter Plan of Treatment Not on file documented as of this encounter Visit Diagnoses Not on filedocumented in this encounter Care Teams Canvas Marker Relationship Specialty Start Date End Date Adriana Sewell MD [address] [place] [address] 51481 PCP - General Internal Medicine 09/24/20 03/15/23 Geoffrey Parekh MD [address] [place] [address] 95753 PCP - General Family Practice 03/16/23 Fabio Forman MD Specialist Cardiology 06/04/20 Jeremias Yu NP [address] [place] [address] 16178 Nurse Practitioner Cardiology 12/15/20 Jocelin Cleveland NP [address] [place] [address] [phone] Cardiology 11/05/22 documented as of this encounter
--- OUTSIDE RECORDS SUMMARY | 2025-03-19 15:05 | XMS_ITS | Encounter Summary ---
Author Organization [facility] Address [address] [place] [address] Care Team Providers Care Lawn Specialist Name Role Phone Doreen Workman DO Primary Care Pro vider Unavailable Fabio Forman MD Unavailable Adriana Sewell MD Primary Care Provider Jeremias Yu ECO INDUSTRIAL DEVELOPMENT CONSULTANT Unavailable [phone] Jocelin Cleveland NP Unavailable [phone] Geoffrey Parekh MD Primary Care Provider María vailable Reason for Visit * Reason Comments E-prescribe Rx Request Encounter Details Date Type Department Care Team Description 09/15/2017 Refill Adult Medicine [address] [id number] Luz Zamora, PAFanyC E-prescribe Rx Request Social History Tobacco Use Types Packs/Day Years [...] encounter Miscellaneous Notes * Telephone Encounter - Reema Penaloza M.A. - 09/16/2017 11:27 AM EDT furosimide was filled for 5 tabs by Luz Zamora. Per her note this was started and to be re-evaluated on Tuesday. * Telephone Encounter - Carmen Dosssylviashmuel - 09/16/2017 9:01 AM EDT Patient would like script to be: E-PRESCRIBED/FAXED TO PHARMACY WHEN WAS THE PATIENT'S LAST APPOINTMENT IN ADULT MEDICINE? 09/15/17 WHEN WAS THE LAST TIME THE PATIENT SAW THEIR PCP? 08/01/17 Does patient have an upcoming appointment? Yes 11/28/17 (THE MEDICATION REQUESTED IS ON THE MED LIST ABOVE) All of the medications requested were on the CURRENT MEDS list Did you check the Pharmacy information above?: YES Patient wants: 90 -day supply Is this a mail order prescription request ? NO Patients current insurance carrier is: [place] / [place] / Product Type: MEDICARE [id number] documented in this encounter Plan of Treatment Not on file documented as of this encounter Visit Diagnoses Not on filedocumented in this encounter Care Teams Lawn Specialist Relationship Specialty Start Date End Date Doreen Workman DO PCP - General Internal Medicine 07/04/14 09/23/20 Adriana Sewell MD [address] [place] [address] PCP - General Internal Medicine 09/24/20 03/15/23 Geoffrey Parekh MD [address] [place] [address] 34811 PCP - General Family Practice 03/16/23 Fabio Forman MD Specialist Cardiology 06/04/20 Jeremias Yu NP [address] [place] [address] Nurse Practitioner Cardiology 12/15/20 Jocelin Cleveland NP [address] [place] [address] Cardiology 11/05/22 documented as of this encounter
--- OUTSIDE RECORDS SUMMARY | 2025-03-19 15:05 | XMS_ITS | Encounter Summary ---
Author Organization [facility] Address [address] [place] [address] Care Team Providers Care Uncrater Name Role Phone Fabio Forman MD Unavailable [phone] Adriana Sewell MD Primary Care Provider [phone] Jeremias Yu NP Unavailable Jocelin Cleveland NP Unavailable [phone] Geoffrey Parekh MD Primary Care Provider María vailable Reason for Visit * Reason Comments Remote Device Check Encounter Details Date Type Department Care Team Description 09/02/2021 Remote Device Check Cardio PVC POC 154 [address] [facility] 154 [place] [address] Dominique Collier MD [address] [facility] [address] [place] [address] Sick sinus syndrome (HCC) (Primary Dx) Social History Tobacco Use Types Packs/Day Years [...] as of this encounter Plan of Treatment Scheduled Orders Name Type Priority Associated Diagnoses Orde r Schedule PVCA REMOTE PACE MAKER Cardiology Routine Sick sinus syndrome (HCC) Ordered: 09/14/2021 documented as of this encounter Visit Diagnoses Diagnosis Sick sinus syndrome (HCC)- Primary Sinoatrial node dysfunction documented in this encounter Care Teams Uncrater Relationship Specialty Start Date End Date Adriana Sewell MD [address] [place] [address] 32821 PCP - General Internal Medicine 09/24/20 03/15/23 Geoffrey Parekh MD [address] [place] [address] 37973 PCP - General Family Practice 03/16/23 Fabio Forman MD Specialist Cardiology 06/04/20 Jeremias Yu NP [address] [place] [address] Nurse Practitioner Cardiology 12/15/20 Jocelin Cleveland NP [address] [place] [address] 85717 Cardiology 11/05/22 documented as of this encounter
--- OUTSIDE RECORDS SUMMARY | 2025-03-19 15:05 | XMS_ITS | Encounter Summary ---
Author Organization [facility] Address [address] [place] [address] Care Team Providers Care Video Manager Name Role Phone Fabio Forman MD Unavailable Adriana Sewell MD Primary Care Provider [phone] Jeremias Yu ASSISTANT REFINERY OPERATOR Unavailable [phone] Jocelin Cleveland ASSISTANT REFINERY OPERATOR Unavailable [phone] Geoffrey Parekh MD Primary Care Provider María vailable Encounter Details Date Type Department Care Team Description 12/25/2021 Helpdesk Analyst Report Medical Records [address] [place] [address] Angella Tierney PA-C Social History Tobacco Use Types Packs/Day Years [...] suspected to have Coronavirus/COVID-19? No / Unsure 12/22/2021 11:09 AM EDT documented as of this encounter Plan of Treatment Not on file documented as of this encounter Visit Diagnoses Not on filedocumented in this encounter Care Teams Video Manager Relationship Specialty Start Date End Date Adriana Sewell MD [address] [place] [address] PCP - General Internal Medicine 09/24/20 03/15/23 Geoffrey Parekh MD [address] [place] [address] 31861 PCP - General Family Practice 03/16/23 Fabio Forman MD Specialist Cardiology 06/04/20 Jeremias Yu NP [address] [place] [address]1607 Nurse Practitioner Cardiology 12/15/20 Jocelin Cleveland NP [address] [place] [address] 37054 Cardiology 11/05/22 documented as of this encounter
--- OUTSIDE RECORDS SUMMARY | 2025-03-19 15:05 | XMS_ITS | Encounter Summary ---
Author Organization [facility] Address [address] [place] [address] Care Team Providers Care Research And Development Chemist Name Role Phone Fabio Forman MD Unavailable Adriana Sewell MD Primary Care Provider [phone] Jeremias Yu WOUND NURSE Unavailable [phone] Jocelin Cleveland WOUND NURSE Unavailable [phone] Geoffrey Parekh MD Primary Care Provider María vailable Encounter Details Date Type Department Care Team Description 04/08/2022 [facility] Medical Records [address] [place] [address] 56568 Abstract, Provider Social History Tobacco Use Types [...] Recorded In the last 10 days, have jannet u been in contact with someone who was confirmed or suspected to have Coronavirus/COVID-19? No / Unsure 04/09/2022 2:18 PM EST documented as of this encounter Plan of Treatment Not on file documented as of this encounter Visit Diagnoses Not on filedocumented in this encounter Care Teams Research And Development Chemist Relationship Specialty Start Date End Date Adriana Sewell MD [address] [place] [address] PCP - General Internal Medicine 09/24/20 03/15/23 Geoffrey Parekh MD [address] [place] [address] 84295 PCP - General Family Practice 03/16/23 Fabio Forman MD Specialist Cardiology 06/04/20 Jeremias Yu NP [address] [place] [address]36 Nurse Practitioner Cardiology 12/15/20 Jocelin Cleveland NP [address] [place] [address] 98828 Cardiology 11/05/22 documented as of this encounter
--- OUTSIDE RECORDS SUMMARY | 2025-03-19 15:06 | XMS_ITS | Encounter Summary ---
Author Organization [facility] Address [address] [place] [address] Care Team Providers Care Underwear Welter Name Role Phone Doreen Workman DO Primary Care Pro vider Unavailable Fabio Forman MD Unavailable [phone] Adriana Sewell MD Primary Care Provider Jeremias Yu NP Unavailable [phone] Jocelin Cleveland NP Unavailable Geoffrey Parekh MD Primary Care Provider María vailable Encounter Details Date Type Department Care Team Description 02/23/2020 Hospital Medical Records [address] [place] [address] [facility] Social History Tobacco Use Types Packs/Day [...] have Coronavirus / COVID-19? No / Unsure 02/12/2020 9:29 AM EDT documented as of this encounter Plan of Treatment Not on file documented as of this encounter Procedures Procedure Name Priority Date/Time Associated Diagnosis Comments OUTSIDE EKG Routine 02/23/2020 OUTSIDE PLAIN FILM Routine 02/23/2020 documented in this encounter Results * OUTSIDE PLAIN FILM (02/23/2020) Provider Default RADIOLOGY * OUTSIDE EKG (02/23/2020) Provider Default CARDIOLOGY documented in this encounter Visit Diagnoses Not on filedocumented in this encounter Care Teams Underwear Welter Relationship Specialty Start Date End Date Doreen Workman DO PCP - General Internal Medicine 07/04/14 09/23/20 Adriana Sewell MD [address] [place] [address] 37852 PCP - General Internal Medicine 09/24/20 03/15/23 Geoffrey Parekh MD [address] [place] [address] 41888 PCP - General Family Practice 03/16/23 Fabio Forman MD Specialist Cardiology 06/04/20 Jeremias Yu NP [address] [place] [address] 58025 Nurse Practitioner Cardiology 12/15/20 Jocelin Cleveland NP [address] [place] [address] 29560 Cardiology 11/05/22 documented as of this encounter
--- OUTSIDE RECORDS SUMMARY | 2025-03-19 15:06 | XMS_ITS | Encounter Summary ---
Author [facility] Address [address] [place] [address] Care Team Providers Care Ppap Coordinator Name Role Phone Doreen Workman DO Primary Care Pro vider Unavailable Fabio Forman MD Unavailable Adriana Sewell MD Primary Care Provider [phone] Jeremias Yu REFINERY OPERATOR ASSISTANT Unavailable Jocelin Cleveland NP Unavailable [phone] Geoffrey Parekh MD Primary Care Provider María vailable Encounter Details Date Type Department Care Team Description 05/25/2017 Orders Only Adult Medicine [address] [id number] Doreen Workman DO Social History Tobacco Use Types Packs/Day Years [...] on filedocumented in this encounter Care Teams Ppap Coordinator Relationship Specialty Start Date End Date Doreen Workman DO PCP - General Internal Medicine 07/04/14 09/23/20 Adriana Sewell MD [address] [place] [address] 61638 PCP - General Internal Medicine 09/24/20 03/15/23 Geoffrey Parekh MD [address] [place] [address] 06316 PCP - General Family Practice 03/16/23 Fabio Forman MD Specialist Cardiology 06/04/20 Jeremias Yu NP [address] [place] [address] Nurse Practitioner Cardiology 12/15/20 Jocelin Cleveland NP [address] [place] [address] 57514 Cardiology 11/05/22 documented as of this encounter
--- OUTSIDE RECORDS SUMMARY | 2025-03-19 15:06 | XMS_ITS | Encounter Summary ---
Author Organization [facility] Address [address] [place] [address] Care Team Providers Care It Professional Name Role Phone Doreen Workman DO Primary Care Pro vider Unavailable Fabio Forman MD Unavailable [phone] Adriana Sewell MD Primary Care Provider Jeremias Yu LYRIC WRITER Unavailable Jocelin Cleveland NP Unavailable Geoffrey Parekh MD Primary Care Provider María vailable Encounter Details Date Type Department Care Team Description 08/25/2017 Parks Recreation Director Report Medical Records [address] [place] [address] Rehab., [place] Social History Tobacco Use Types Packs/Day Years [...] on filedocumented in this encounter Care Teams It Professional Relationship Specialty Start Date End Date Doreen Workman DO PCP - General Internal Medicine 07/04/14 09/23/20 Adriana Sewell MD [address] [place] [address] [phone] PCP - General Internal Medicine 09/24/20 03/15/23 Geoffrey Parekh MD [address] [place] [address] 63365 PCP - General Family Practice 03/16/23 Fabio Forman MD Specialist Cardiology 06/04/20 Jeremias Yu NP [address] [place] [address] 41121 Nurse Practitioner Cardiology 12/15/20 Jocelin Cleveland NP [address] [place] [address] 21149 Cardiology 11/05/22 documented as of this encounter
--- OUTSIDE RECORDS SUMMARY | 2025-03-19 15:06 | XMS_ITS | Encounter Summary ---
Author Organization [facility] Address [address] [place] [address] Care Team Providers Care Vice President Marketing & Development Name Role Phone Doreen Workman DO Primary Care Pro vider Unavailable Fabio Forman MD Unavailable Adriana Sewell MD Primary Care Provider [phone] Jeremias Yu COLLEGE TEACHER Unavailable Jocelin Cleveland NP Unavailable Geoffrey Parekh MD Primary Care Provider María vailable Encounter Details Date Type Department Care Team Description 12/17/2014 Orders Only Adult Medicine [address] [id number] Doreen Workman DO Unspecified hypothyroidism (Primary Dx) Social History Tobacco Use Types [...] on file documented as of this encounter Results * TSH (02/20/2015 10:17 AM EDT) TSH 3.20 0.40 - 4.00 mIU/ml 02/20/2015 11:57 AM EDT [facility] 02/20/2015 10:1 7 AM EDT 02/20/2015 10:17 AM EDT Doreen Hightower DO LAB [facility] [address] [facility] documented in this encounter Visit Diagnoses Diagnosis Unspecified hypothyroidism- Primary documented in this encounter Care Teams Vice President Marketing & Development Relationship Specialty Start Date End Date Doreen Workman DO PCP - General Internal Medicine 07/04/14 09/23/20 Adriana Sewell MD [address] [place] [address] 18461 PCP - General Internal Medicine 09/24/20 03/15/23 Geoffrey Parekh MD [address] [place] [address] 93189 PCP - General Family Practice 03/16/23 Fabio Forman MD Specialist Cardiology 06/04/20 Jeremias Yu NP [address] [place] [address] 15127 Nurse Practitioner Cardiology 12/15/20 Jocelin Cleveland NP [address] [place] [address] 01107 Cardiology 11/05/22 documented as of this encounter
--- OUTSIDE RECORDS SUMMARY | 2025-03-19 15:06 | XMS_ITS | Encounter Summary ---
Author Organization [facility] Address [address] [place] [address] Care Team Providers Care Field Kiln Burner Name Role Phone Doreen Workman DO Primary Care Pro vider Unavailable Fabio Forman MD Unavailable Adriana Sewell MD Primary Care Provider Jeremias Yu TIP MENDER Unavailable [phone] Jocelin Cleveland NP Unavailable Geoffrey Parekh MD Primary Care Provider María vailable Encounter Details Date Type Department Care Team Description 09/13/2017 Crumb Packer Report Medical Records [address] [place] [address] Rehab., [place] Social History Tobacco Use Types Packs/Day Years [...] on filedocumented in this encounter Care Teams Field Kiln Burner Relationship Specialty Start Date End Date Doreen Workman DO PCP - General Internal Medicine 07/04/14 09/23/20 Adriana Sewell MD [address] [place] [address] [phone] PCP - General Internal Medicine 09/24/20 03/15/23 Geoffrey Parekh MD [address] [place] [address] 28788 PCP - General Family Practice 03/16/23 Fabio Forman MD Specialist Cardiology 06/04/20 Jeremias Yu NP [address] [place] [address] 46178 Nurse Practitioner Cardiology 12/15/20 Jocelin Cleveland NP [address] [place] [address] 92319 Cardiology 11/05/22 documented as of this encounter
--- OUTSIDE RECORDS SUMMARY | 2025-03-19 15:06 | XMS_ITS | Encounter Summary ---
Author [facility] Address [address] [place] [address] Care Team Providers Care Marketing Strategy Manager Name Role Phone Fabio Forman MD Unavailable [phone] Adriana Sewell MD Primary Care Provider [phone] Jeremias Yu SOURCING COORDINATOR Unavailable [phone] Jocelin Cleveland SOURCING COORDINATOR Unavailable [phone] Geoffrey Parekh MD Primary Care Provider María vailable Encounter Details Date Type Department Care Team Description 10/20/2022 [facility] Medical Records [address] [place] [address] Abstract, Provider Social History Tobacco Use Types [...] suspected to have Coronavirus/COVID-19? No / Unsure 10/20/2022 1:39 PM EDT documented as of this encounter Plan of Treatment Not on file documented as of this encounter Visit Diagnoses Not on filedocumented in this encounter Care Teams Marketing Strategy Manager Relationship Specialty Start Date End Date Adriana Sewell MD [address] [place] [address]20 PCP - General Internal Medicine 09/24/20 03/15/23 Geoffrey Parekh MD [address] [place] [address] 13558 PCP - General Family Practice 03/16/23 Fabio Forman MD Specialist Cardiology 06/04/20 Jeremias Yu NP [address] [place] [address] 11677 Nurse Practitioner Cardiology 12/15/20 Jocelin Cleveland NP [address] [place] [address] 26762 Cardiology 11/05/22 documented as of this encounter
--- OUTSIDE RECORDS SUMMARY | 2025-03-19 15:06 | XMS_ITS | Encounter Summary ---
Author Organization [facility] Address [address] [place] [address] Care Team Providers Care Damaged Freight Inspector Name Role Phone Doreen Workman DO Primary Care Pro vider Unavailable Fabio Forman MD Unavailable [phone] Adriana Sewell MD Primary Care Provider Jeremias Yu SHIP STEWARD Unavailable Jocelin Cleveland NP Unavailable Geoffrey Parekh MD Primary Care Provider María vailable Encounter Details Date Type Department Care Team Description 12/23/2017 [facility] Medical Records [address] [place] [address] 08490 Abstract, Provider Social History Tobacco Use Types [...] on filedocumented in this encounter Care Teams Damaged Freight Inspector Relationship Specialty Start Date End Date Doreen Workman DO PCP - General Internal Medicine 07/04/14 09/23/20 Adriana Sewell MD [address] [place] [address]1020 PCP - General Internal Medicine 09/24/20 03/15/23 Geoffrey Parekh MD [address] [place] [address] [address] PCP - General Family Practice 03/16/23 Fabio Forman MD Specialist Cardiology 06/04/20 Jeremias Yu NP [address] [place] [address]40 Nurse Practitioner Cardiology 12/15/20 Jocelin Cleveland NP [address] [place] [address] [address] Cardiology 11/05/22 documented as of this encounter
--- OUTSIDE RECORDS SUMMARY | 2025-03-19 15:06 | XMS_ITS | Encounter Summary ---
Author Organization [facility] Address [address] [place] [address] Care Team Providers Care Customer Loyalty Representative Name Role Phone Doreen Workman DO Primary Care Pro vider Unavailable Fabio Forman MD Unavailable [phone] Adriana Sewell MD Primary Care Provider Jeremias Yu COATING MIXER TENDER Unavailable Jocelin Cleveland COATING MIXER TENDER Unavailable Geoffrey Parekh MD Primary Care Provider María vailable Reason for Referral * EXTERNAL (Urgent) - Authorized/Booked Specialty Diagnoses / Procedures Referred By Joon greenfield Referred To Contact Physical Therapy Procedures REFERRAL TO PHYSICAL THERAPY Doreen Workman DO [address] [place], [place] [address] [place] Referral ID Status Reason Start Date Expiration Date V isits Requested Visits Authorized SEE NOTE Authorized/B ooked 08/10/2017 11/10/2017 1 1 Encounter Details Date Type Department Care Team Description 08/10/2017 Orders Only Adult Medicine [address] [phone] Doreen Workman DO Social History Tobacco Use [...] on filedocumented in this encounter Care Teams Customer Loyalty Representative Relationship Specialty Start Date End Date Doreen Workman DO PCP - General Internal Medicine 07/04/14 09/23/20 Adriana Sewell MD [address] [place] [address] 24286 PCP - General Internal Medicine 09/24/20 03/15/23 Geoffrey Parekh MD [address] [place] [address] 69678 PCP - General Family Practice 03/16/23 Fabio Forman MD Specialist Cardiology 06/04/20 Jeremias Yu NP [address] [place] [address] 12320 Nurse Practitioner Cardiology 12/15/20 Jocelin Cleveland NP [address] [place] [address] 10815 Cardiology 11/05/22 documented as of this encounter
--- OUTSIDE RECORDS SUMMARY | 2025-03-19 15:06 | XMS_ITS | Encounter Summary ---
Author Organization [facility] Address [address] [place] [address] Care Team Providers Care Coat Padder Name Role Phone Doreen Workman DO Primary Care Pro vider Unavailable Fabio Forman MD Unavailable Adriana Sewell MD Primary Care Provider [phone] Jeremias Yu NP Unavailable Jocelin Cleveland NP Unavailable Geoffrey Parekh MD Primary Care Provider María vailable Reason for Visit * Reason Onset Date Comments Faxed Order 05/07/2015 Encounter Details Date Type Department Care Team Description 05/07/2015 Telephone Adult [address] [phone] Doreen Workman DO Faxed Order Social History Tobacco Use Types Packs/Day Years [...] encounter Miscellaneous Notes * Telephone Encounter - Geena Butcher - 05/07/2015 11:17 AM EST Plan of care for Dr Doreen Donahue's signature documented in this encounter Plan of Treatment Not on file documented as of this encounter Visit Diagnoses Not on filedocumented in this encounter Care Teams Coat Padder Relationship Specialty Start Date End Date Doreen Workman DO PCP - General Internal Medicine 07/04/14 09/23/20 Adriana Sewell MD [address] [place] [address] 24125 PCP - General Internal Medicine 09/24/20 03/15/23 Geoffrey Parekh MD [address] [place] [address] 02895 PCP - General Family Practice 03/16/23 Fabio Forman MD Specialist Cardiology 06/04/20 Jeremias Yu NP [address] [place] [address] 93037 Nurse Practitioner Cardiology 12/15/20 Jocelin Cleveland NP [address] [place] [address] 69350 Cardiology 11/05/22 documented as of this encounter
--- OUTSIDE RECORDS SUMMARY | 2025-03-19 15:06 | XMS_ITS | Encounter Summary ---
Author Organization [facility] Address [address] [place] [address] Care Team Providers Care Ground Intelligence Officer Name Role Phone Doreen Workman DO Primary Care Pro vider Unavailable Fabio Forman MD Unavailable Adriana Sewell MD Primary Care Provider [phone] Jeremias Yu GREETER Unavailable Jocelin Cleveland NP Unavailable Geoffery Parekh MD Primary Care Provider María vailable Encounter Details Date Type Department Care Team Description 12/08/2017 Incoming Correspondence Medical Records [address] [place] [address] [facility] Social History Tobacco Use Types [...] on filedocumented in this encounter Care Teams Ground Intelligence Officer Relationship Specialty Start Date End Date Doreen Workman DO PCP - General Internal Medicine 07/04/14 09/23/20 Adriana Sewell MD [address] [place] [address] [phone] PCP - General Internal Medicine 09/24/20 03/15/23 Geoffrey Parekh MD [address] [place] [address] PCP - General Family Practice 03/16/23 Fabio Forman MD Specialist Cardiology 06/04/20 Jeremias Yu NP [address] [place] [address] 68778 Nurse Practitioner Cardiology 12/15/20 Jocelin Cleveland NP [address] [place] [address] 10627 Cardiology 11/05/22 documented as of this encounter
--- OUTSIDE RECORDS SUMMARY | 2025-03-19 15:06 | XMS_ITS | Encounter Summary ---
Author Organization [facility] Address [address] [place] [address] Care Team Providers Care Director Community Center Name Role Phone Doreen Workman DO Primary Care Pro vider Unavailable Fabio Forman MD Unavailable [phone] Adriana Sewell MD Primary Care Provider Jeremias Yu HEARING SCREENER Unavailable Jocelin Cleveland NP Unavailable Geoffrey Parekh MD Primary Care Provider María vailable Encounter Details Date Type Department Care Team Description 09/09/2014 Orders Only Adult Medicine [address] [address] Doreen Workman DO Social History Tobacco Use [...] on filedocumented in this encounter Care Teams Director Community Center Relationship Specialty Start Date End Date Doreen Workman DO PCP - General Internal Medicine 07/04/14 09/23/20 Adriana Sewell MD [address] [place] [address] 27651 PCP - General Internal Medicine 09/24/20 03/15/23 Geoffrey Parekh MD [address] [place] [address] PCP - General Family Practice 03/16/23 Fabio Forman MD Specialist Cardiology 06/04/20 Jeremias Yu NP [address] [place] [address] Nurse Practitioner Cardiology 12/15/20 Jocelin Cleveland NP [address] [place] [address] Cardiology 11/05/22 documented as of this encounter
--- OUTSIDE RECORDS SUMMARY | 2025-03-19 15:06 | XMS_ITS | Encounter Summary ---
Author Organization [facility] Address [address] [place] [address] Care Team Providers Care Taxation Inspector Name Role Phone Fabio Forman MD Unavailable Adriana Sewell MD Primary Care Provider [phone] Jeremias Yu HOUSEHOLD PERSONAL ASSISTANT Unavailable [phone] Jocelin Cleveland NP Unavailable [phone] Geoffrey Parekh MD Primary Care Provider María vailable Encounter Details Date Type Department Care Team Description 10/28/2022 Orders Only Adult Medicine [facility] [address] [place], [place] [id number] Adriana Sewell MD [address] [place] [address] [phone] Preoperative examination; Screening for deficiency anemia Social History Tobacco Use Types Packs/Day Years [...] Type Priority Associated Diagnoses Orde r Schedule CHG BLOOD COUNT COMPLETE AUTO&AUTO DIFRNTL WBC Lab Routine Preoperative examination Screening for deficiency anemia Expected: 10/28/2022 (Approximate), Expires: 10/28/2023 CHG BASIC METABOLIC PANEL CALCIUM TOTAL Lab Routine Preoperative examination Expected: 10/28/2022 (Approximate), Expires: 10/28/2023 documented as of this encounter Visit Diagnoses Diagnosis Preoperative examination Preoperative examination, unspecified Screening for deficiency anemia Screening for other and unspecified deficiency anemia documented in this encounter Care Teams Taxation Inspector Relationship Specialty Start Date End Date Adriana Sewell MD [address] [place] [address] 564[address] PCP - General Internal Medicine 09/24/20 03/15/23 Geoffrey Parekh MD [address] [place] [address] 41251 PCP - General Family Practice 03/16/23 Fabio Forman MD Specialist Cardiology 06/04/20 Jeremias Yu NP [address] [place] [address] Nurse Practitioner Cardiology 12/15/20 Jocelin Cleveland NP [address] [place] [address]14 Cardiology 11/05/22 documented as of this encounter
--- OUTSIDE RECORDS SUMMARY | 2025-03-19 15:06 | XMS_ITS | Encounter Summary ---
Author Organization [facility] Address [address] [place] [address] Care Team Providers Care Pharmacy Affairs Assistant Name Role Phone Doreen Workman DO Primary Care Pro vider Unavailable Fabio Forman MD Unavailable [phone] Adriana Sewell MD Primary Care Provider Jeremias Yu LEAD CASHIER Unavailable [phone] Jocelin Cleveland NP Unavailable [phone] Geoffrey Parekh MD Primary Care Provider María vailable Reason for Visit * Reason Comments E-prescribe Rx Request Encounter Details Date Type Department Care Team Description 09/19/2017 Refill Adult Medicine [address] [id number] Gregory Zamora PA-C E-prescribe Rx Request Social History Tobacco Use [...] encounter Miscellaneous Notes * Telephone Encounter - Ainsley Jensen M.A. - 09/19/2017 10:31 AM EDT Lab Results Component Value Date NA 146 09/16/2017 K 4.4 09/16/2017 CO2 23.0 09/16/2017 CL 107 09/16/2017 BUN 10 09/16/2017 CREAT 1.0 09/16/2017 GLU 112 09/16/2017 CA 9.3 09/16/2017 GFR 59 09/16/2017 Seen by gregory vee * Telephone Encounter - Treasure Redman - 09/19/2017 9:29 AM EDT Patient would like script to be: E-PRESCRIBED/FAXED TO PHARMACY WHEN WAS THE PATIENT'S LAST APPOINTMENT IN ADULT MEDICINE? [id number] WHEN WAS THE LAST TIME THE PATIENT SAW THEIR PCP? [id number] Does patient have an upcoming appointment? Yes [id number] (THE MEDICATION REQUESTED IS ON THE MED LIST ABOVE) All of the medications requested were on the CURRENT MEDS list Did you check the Pharmacy information above?: YES Patient wants: 30 -day supply Is this a mail order prescription request ? NO Patients current insurance carrier is: [place] / [place] / Product Type: MEDICARE [id number] documented in this encounter Plan of Treatment Not on file documented as of this encounter Visit Diagnoses Not on filedocumented in this encounter Care Teams Pharmacy Affairs Assistant Relationship Specialty Start Date End Date Doreen Workman DO PCP - General Internal Medicine 07/04/14 09/23/20 Adriana Sewell MD [address] [place] [address] PCP - General Internal Medicine 09/24/20 03/15/23 Geoffrey Parekh MD [address] [place] [address] PCP - General Family Practice 03/16/23 Fabio Forman MD Specialist Cardiology 06/04/20 Jeremias Yu NP [address] [place] [address] Nurse Practitioner Cardiology 12/15/20 Jocelin Cleveland NP [address] [place] [address] 58257 Cardiology 11/05/22 documented as of this encounter
--- OUTSIDE RECORDS SUMMARY | 2025-03-19 15:06 | XMS_ITS | Encounter Summary ---
Author Organization [facility] Address [address] [place] [address] Care Team Providers Care Coal Deliverer Name Role Phone Doreen Workman DO Primary Care Pro vider Unavailable Fabio Forman MD Unavailable Adriana Sewell MD Primary Care Provider [phone] Jeremias Yu ART PREPARATOR Unavailable [phone] Joclein Cleveland NP Unavailable Geoffrey Parekh MD Primary Care Provider María vailable Encounter Details Date Type Department Care Team Description 03/31/2015 Cut Order Hand Report Medical Records [address] [place] [address] Angelo Arreola MD Social History Tobacco Use Types Packs/Day [...] on filedocumented in this encounter Care Teams Coal Deliverer Relationship Specialty Start Date End Date Doreen Workman DO PCP - General Internal Medicine 07/04/14 09/23/20 Adriana Sewell MD [address] [place] [address] [phone] PCP - General Internal Medicine 09/24/20 03/15/23 Geoffrey Parekh MD [address] [place] [address] 91181 PCP - General Family Practice 03/16/23 Fabio Forman MD Specialist Cardiology 06/04/20 Jeremias Yu NP [address] [place] [address] Nurse Practitioner Cardiology 12/15/20 Jocelin Cleveland NP [address] [place] [address]119[address] Cardiology 11/05/22 documented as of this encounter
--- OUTSIDE RECORDS SUMMARY | 2025-03-19 15:07 | XMS_ITS | Encounter Summary ---
Author Organization [facility] Address [address] [place] [address] Care Team Providers Care Qc Tech Name Role Phone Doreen Workman DO Primary Care Pro vider Unavailable Fabio Forman MD Unavailable [phone] Adriana Sewell MD Primary Care Provider Jeremias Yu STRAP BUCKLER Unavailable Jocelin Cleveland NP Unavailable Geoffrey Parekh MD Primary Care Provider María vailable Encounter Details Date Type Department Care Team Description 07/02/2015 Release of Information Medical Records [address] [place] [address] Abstract, Provider Social History Tobacco Use Types [...] on filedocumented in this encounter Care Teams Qc Tech Relationship Specialty Start Date End Date Doreen Workman DO PCP - General Internal Medicine 07/04/14 09/23/20 Adriana Sewell MD [address] [place] [address] PCP - General Internal Medicine 09/24/20 03/15/23 Geoffrey Parekh MD [address] [place] [address] [address] PCP - General Family Practice 03/16/23 Fabio Forman MD Specialist Cardiology 06/04/20 Jeremias Yu NP [address] [place] [address] Nurse Practitioner Cardiology 12/15/20 Jocelin Cleveland NP [address] [place] [address] [address] Cardiology 11/05/22 documented as of this encounter
--- OUTSIDE RECORDS SUMMARY | 2025-03-19 15:07 | XMS_ITS | Encounter Summary ---
Author Organization [facility] Address [address] [place] [address] Care Team Providers Care Baseball Scout Name Role Phone Doreen Workman DO Primary Care Pro vider Unavailable Fabio Forman MD Unavailable Adriana Sewell MD Primary Care Provider Jeremias Yu NP Unavailable Jocelin Cleveland NP Unavailable [phone] Geoffrey Parekh MD Primary Care Provider María vailable Reason for Visit * Reason Onset Date Comments other 07/09/2015 fyi Encounter Details Date Type Department Care Team Description 07/09/2015 Telephone Adult [address] [phone] Doreen Workman DO other (fyi) Social History Tobacco Use Types Packs/Day Years [...] encounter Miscellaneous Notes * Telephone Encounter - Bela Barcenas - 07/09/2015 11:13 AM EST Patient calling states that she was at [facility] on 07/07/15, they found bleeds in the stool and told her to follow up with Gastro doctor, she has an appointment to see her Gastro doctor, she just wanted to let her pcp know what was going on with her documented in this encounter Plan of Treatment Not on file documented as of this encounter Visit Diagnoses Not on filedocumented in this encounter Care Teams Baseball Scout Relationship Specialty Start Date End Date Doreen Workman DO PCP - General Internal Medicine 07/04/14 09/23/20 Adriana Sewell MD [address] [place] [address] PCP - General Internal Medicine 09/24/20 03/15/23 Geoffrey Parekh MD [address] [place] [address] PCP - General Family Practice 03/16/23 Fabio Forman MD Specialist Cardiology 06/04/20 Jeremias Yu NP [address] [place] [address] Nurse Practitioner Cardiology 12/15/20 Jocelin Clveeland NP [address] [place] [address] Cardiology 11/05/22 documented as of this encounter
--- OUTSIDE RECORDS SUMMARY | 2025-03-19 15:07 | XMS_ITS | Encounter Summary ---
Author Organization [facility] Address [address] [place] [address] Care Team Providers Care Front Desk Person Name Role Phone Fabio Forman MD Unavailable [phone] CycJeremias sylvester NP Unavailable Jocelin Cleveland CNC MANUFACTURING ENGINEER Unavailable [phone] Geoffrey Parekh MD Primary Care Provider María vailable Reason for Visit * Reason Onset Date Comments Transitional Care Management (Tcm) 08/02/2023 [facility] d/c 08/01/2023 Encounter Details Date Type Department Care Team Description 08/02/2023 Telephone Adult Medicine - [address] [address] Geoffrey Parekh MD Transitional Care Management (Tcm) ([facility] d/c 08/01/2023) Social History Tobacco Use Types Packs/Day Years [...] encounter Miscellaneous Notes * Telephone Encounter - Fabio Forman MD - 08/03/2023 4:45 PM EDT See prior note. Lets try to get the patient into the office in the next 3 weeks or so for hospital follow-up visit. Thank you. JJ * Telephone Encounter - Susiedee deeshmuel Puri L.P.N. - 08/02/2023 12:25 PM EDT TCM Call Patient outreached on 08/02/23 Discharge Disposition/Date: Patient was discharged from [facility] on 08/01/2023 Home with no Services Home Health Services/VNA: None Discharge Diagnoses: No discharge information exists for this patient. Per patient, she went to the hospital for a-fib and she also was diagnosed with a UTI Date of Post Discharge Follow-Up Appointment (preferred within 5-7 days): PCP appt Dr. Geoffrey Parekh - patient states she is awaiting a call back from the office to schedule an appt Cardiology appt Dr. Fabio Forman - patient states she will call the office this afternoon to schedule an appt Future Appointments Date Time Provider Department Center 01/02/2024 8:10 AM [facility] 01/10/2024 9:00 AM [facility] GI SPFLD 175 [id number] 03/22/2024 9:00 AM [facility] [id number] PVCA Do you have transportation to the follow up appointment? YES Do you need an aerial photograph interpreter for your TCM appointment? NO If yes, coordinate aerial photograph interpreter services. Current Living Situation Living arrangement: Alone Assistance needed with ADL's: None DME: CPAP machine Past Medical History: Past Medical History: Diagnosis Date ??? CAD (coronary artery disease) cabg x 4 ; Dr. Forman ??? CHF (congestive heart failure) ([facility]) 11/16/2022 ??? Depression ??? Dyslipidemia ??? Essential hypertension, benign ??? Fibromyalgia ??? GERD (gastroesophageal reflux disease) ??? Hiatal hernia 06/17/2017 mod to large ??? Hiatal hernia mod to large ??? High cholesterol ??? History of colonoscopy 2015 ??? History of endoscopy 10/11/2017 muslu; small angiodysplastic lesion duodenum; large hiatal hernia; gastritis ??? History of other specified conditions presenting hazards to health cervical ca ??? Hypothyroid ??? Migraines ??? Normocytic anemia ??? Pacemaker mri compatabile ??? Snores 2018 no susan ??? SSS (sick sinus syndrome) ([facility]) Medication Review/Education Per patient, current Medications, including discharge medications: New Medications: Furosemide 40mg daily Potassium 10meq daily Bactrim DS BID x3 days Continue: Alphagan P 0.1% 1 drop to both eyes BID Amiodarone 200mg daily Eliquis 5mg BID Diazepam 5mg 2 tab at bedtime Dorzolamide-timolol 2-0.5% 1 drop to both eyes BID Duloxetine 30mg 2 caps daily Ferrous sulfate 325mg daily Isosorbide 60mg BID Levothyroxine 88mcg daily and one day per week take an extra tab Lisinopril 40mg daily Memantine 10mg BID Metoprolol xl 25mg daily Mulitvitamin daily Nitroglycerin 0.4mg SL every 5 minutes as needed for chest pain Omeprazole 40mg BID Rosuvastatin 20mg daily Trazodone 50mg 3 tabs at bedtime Vitamin C 1000mg daily Vitamin D3 50mcg daily Medication review not completed at this time. Dicharge medication list is not available at this time for review. Patient reports she was prescribed the above listed new medications and is continuing the other medications. Has patient obtained all medications? YES Does patient require assistance to take medications (pre poured meds by VNA or family, pill box, alarm for reminder)? NO Does patient have difficulty affording medications? NO Does patient have a means to pickle maker medications at pharmacy? YES Is patient taking medications as prescribed? YES Does patient have any questions about medications? NO Review with patient/caregiver: After Visit Summary (AVS) not available for call, patient denies questions. Are you interested in more education? NO TCM Summary of Discussion Patient engaged and states she is doing good . No discharge summary available for call. Patient states she went to the hospital for a-fib and was also diagnosed with a UTI. She denies chest pain, palpitations, shortness of breath or lightheadedness. Patient is taking new medications as prescribed,no side effects reported. Patient states she is awaiting a call back from PCP office and she will call her mononitrotoluene operator office this afternoon to schedule a follow-up appt. She denies further questions or concerns. I&O: Patient states she is on a regular diet, appetite and fluid intake is good. No difficulties voiding, denies dysuria, hematuria or frequency. No difficulties moving bowels. Plan: Transitional care call was completed by Ana Puri LPN within 2 business days of discharge and Patient verbalizes understanding of post discharge instructions, medications and follow up care and denies any barriers to adherence. Ana Puri LPN Discharge Navigator [facility] P [phone] documented in this encounter Plan of Treatment Not on file documented as of this encounter Visit Diagnoses Not on filedocumented in this encounter Care Teams Front Desk Person Relationship Specialty Start Date End Date Geoffrey Parekh MD [address] [place] [address]39 PCP - General Family Practice 03/16/23 Fabio Forman MD Specialist Cardiology 06/04/20 Jeremias Yu NP Nurse Practitioner Cardiology 12/15/20 Jocelin Cleveland NP [address] [place] [address] 42958 Cardiology 11/05/22 documented as of this encounter
--- OUTSIDE RECORDS SUMMARY | 2025-03-19 15:07 | XMS_ITS | Encounter Summary ---
Author Organization [facility] Address [address] [place] [address] Care Team Providers Care Programs Director Name Role Phone Fabio Forman MD Unavailable Adriana Sewell MD Primary Care Provider [phone] Jeremias Yu NP Unavailable [phone] Jocelin Cleveland NP Unavailable Geoffrey Parekh MD Primary Care Provider María vailable Encounter Details Date Type Department Care Team Description 11/09/2022 Hospital Medical Records [address] [place] [address] Eric Ojeda MD [address] [place] [address] Social History Tobacco Use Types Packs/Day Years [...] In the last 10 days, have jannet archibald been in contact with someone who was confirmed or suspected to have Coronavirus/COVID-19? No / Unsure 11/08/2022 2:59 PM EDT documented as of this encounter Plan of Treatment Not on file documented as of this encounter Visit Diagnoses Not on filedocumented in this encounter Care Teams Programs Director Relationship Specialty Start Date End Date Adriana Sewell MD [address] [place] [address] PCP - General Internal Medicine 09/24/20 03/15/23 Geoffrey Parekh MD [address] [place] [address]83 PCP - General Family Practice 03/16/23 Fabio Forman MD Specialist Cardiology 06/04/20 Jeremias Yu NP [address] [place] [address] 14945 Nurse Practitioner Cardiology 12/15/20 Jocelin Cleveland NP [address] [place] [address] [id number] Cardiology 11/05/22 documented as of this encounter
--- OUTSIDE RECORDS SUMMARY | 2025-03-19 15:07 | XMS_ITS | Encounter Summary ---
Author Organization [facility] Address [address] [place] [address] Care Team Providers Care Local Company Tanker Driver Name Role Phone Fabio Forman MD Unavailable Adriana Sewell MD Primary Care Provider [phone] Jeremias Yu ERECTOR OPERATOR Unavailable [phone] Jocelin Cleveland ERECTOR OPERATOR Unavailable [phone] Geoffrey Parekh MD Primary Care Provider María vailable Encounter Details Date Type Department Care Team Description 11/17/2022 Night Triage Doc Medical Records [address] [place] [address] Abstract, Provider Social History Tobacco Use Types [...] suspected to have Coronavirus/COVID-19? No / Unsure 11/16/2022 9:48 AM EDT documented as of this encounter Plan of Treatment Not on file documented as of this encounter Visit Diagnoses Not on filedocumented in this encounter Care Teams Local Company Tanker Driver Relationship Specialty Start Date End Date Adriana Sewell MD [address] [place] [address] PCP - General Internal Medicine 09/24/20 03/15/23 Geoffrey Parekh MD [address] [place] [address] PCP - General Family Practice 03/16/23 Fabio Forman MD Specialist Cardiology 06/04/20 Jeremias Yu NP [address] [place] [address] Nurse Practitioner Cardiology 12/15/20 Jocelin Cleveland NP [address] [place] [address]98 Cardiology 11/05/22 documented as of this encounter
--- OUTSIDE RECORDS SUMMARY | 2025-03-19 15:07 | XMS_ITS | Encounter Summary ---
Author Organization [facility] Address [address] [place] [address] Care Team Providers Care Banbury Machine Operator Name Role Phone Fabio Forman MD Unavailable [phone] Adriana Sewell MD Primary Care Provider [phone] Jeremias Yu NP Unavailable Jocelin Cleveland IRRIGATION SUPERVISOR Unavailable [phone] Geoffrey Parekh MD Primary Care Provider María vailable Reason for Visit * Reason Onset Date Comments Faxed Order 12/13/2022 [facility] [id number] , [id number] Encounter Details Date Type Department Care Team Description 12/13/2022 Telephone Adult Medicine [address] [phone] Adriana Sewell MD [address] [place] [address] [phone] Faxed Order ([facility] [id number], [id number]) Social History Tobacco Use Types Packs/Day Years [...] on filedocumented in this encounter Care Teams Banbury Machine Operator Relationship Specialty Start Date End Date Adriana Sewell MD [address] [place] [address] 36950 PCP - General Internal Medicine 09/24/20 03/15/23 Geoffrey Parekh MD [address] [place] [address]67 PCP - General Family Practice 03/16/23 Fabio Forman MD Specialist Cardiology 06/04/20 Jeremias Yu NP [address] [place] [address] 42416 Nurse Practitioner Cardiology 12/15/20 Jocelin Cleveland NP [address] [place] [address] 24385 Cardiology 11/05/22 documented as of this encounter
--- OUTSIDE RECORDS SUMMARY | 2025-03-19 15:07 | XMS_ITS | Encounter Summary ---
Author Organization [facility] Address [address] [place] [address] Care Team Providers Care Vehicle Care Specialist Name Role Phone Fabio Forman MD Unavailable [phone] Adriana Sewell MD Primary Care Provider Jeremias Yu NP Unavailable Jocelin Cleveland NP Unavailable [phone] Geoffrey Parekh MD Primary Care Provider María vailable Encounter Details Date Type Department Care Team Description 11/13/2022 Home Health Certification Medical Records [address] [place] [address] Caregivers, [facility] [address] [facility], [address] [place] [address] Social History Tobacco Use Types Packs/Day Years [...] on filedocumented in this encounter Care Teams Vehicle Care Specialist Relationship Specialty Start Date End Date Adriana Sewell MD [address] [place] [address]03 PCP - General Internal Medicine 09/24/20 03/15/23 Geoffrey Parekh MD [address] [place] [address] PCP - General Family Practice 03/16/23 Fabio Forman MD Specialist Cardiology 06/04/20 Jeremias Yu NP [address] [place] [address] 37075 Nurse Practitioner Cardiology 12/15/20 Jocelin Cleveland NP [address] [place] [address] [id number] Cardiology 11/05/22 documented as of this encounter
--- OUTSIDE RECORDS SUMMARY | 2025-03-19 15:07 | XMS_ITS | Encounter Summary ---
Author Organization [facility] Address [address] [place] [address] Care Team Providers Care Cloth Finishing Range Tender Name Role Phone Fabio Forman MD Unavailable Adriana Sewell MD Primary Care Provider [phone] Jeremias Yu [facility] SHIFT LEAD Unavailable [phone] Jocelin Cleveland [facility] SH[facility] LEAD Unavailable [phone] Geoffrey Parekh MD Primary Care Provider María vailable Encounter Details Date Type Department Care Team Description 11/13/2022 Night Triage Doc Medical Records [address] [place] [address] Abstract, Provider Social History Tobacco Use Types [...] on filedocumented in this encounter Care Teams Cloth Finishing Range Tender Relationship Specialty Start Date End Date Adriana Sewell MD [address] [place] [address]20 PCP - General Internal Medicine 09/24/20 03/15/23 Geoffrey Parekh MD [address] [place] [address] 46993 PCP - General Family Practice 03/16/23 Fabio Forman MD Specialist Cardiology 06/04/20 Jeremias Yu NP [address] [place] [address] 11210 Nurse Practitioner Cardiology 12/15/20 Jocelin Cleveland NP [address] [place] [address] 48187 Cardiology 11/05/22 documented as of this encounter
--- OUTSIDE RECORDS SUMMARY | 2025-03-19 15:07 | XMS_ITS | Encounter Summary ---
Author Organization [facility] Address [address] [place] [address] Care Team Providers Care Buffer Copper Name Role Phone Doreen Workman DO Primary Care Pro vider Unavailable Fabio Forman MD Unavailable Adriana Sewell MD Primary Care Provider Jeremias Yu KNITTING MACHINE FIXER HEAD Unavailable Jocelin Cleveland NP Unavailable Geoffrey Parekh MD Primary Care Provider María vailable Encounter Details Date Type Department Care Team Description 07/17/2020 Technical Developer Report Medical Records [address] [place] [address] Juan R Bellamy Social History Tobacco Use [...] have Coronavirus / COVID-19? No / Unsure 07/18/2020 2:57 PM EST documented as of this encounter Plan of Treatment Not on file documented as of this encounter Visit Diagnoses Not on filedocumented in this encounter Care Teams Buffer Copper Relationship Specialty Start Date End Date Doreen Workman DO PCP - General Internal Medicine 07/04/14 09/23/20 Adriana Sewell MD [address] [place] [address] 38732 PCP - General Internal Medicine 09/24/20 03/15/23 Geoffrey Parekh MD [address] [place] [address] 15524 PCP - General Family Practice 03/16/23 Fabio Forman MD Specialist Cardiology 06/04/20 Jeremias Yu NP [address] [place] [address] [phone] Nurse Practitioner Cardiology 12/15/20 Jocelin Cleveland NP [address] [place] [address] 01107 Cardiology 11/05/22 documented as of this encounter
--- OUTSIDE RECORDS SUMMARY | 2025-03-19 15:07 | XMS_ITS ---
Author Name [facility] Organization Unknown Care Team Organization Name Specialty Phone Email Start Date End Da te [facility] Adriana Sewell Primary Care 07/28/2022 4 [facility] Norah Guzman Primary Care 03/30/2022 01/09/20 24
--- OUTSIDE RECORDS SUMMARY | 2025-03-19 15:07 | XMS_ITS | Encounter Summary ---
Author Organization [facility] Address [address] [place] [address] Care Team Providers Care Kineseologist Name Role Phone Doreen Workman DO Primary Care Pro vider Unavailable Fabio Forman MD Unavailable [phone] Adriana Sewell MD Primary Care Provider [phone] Jeremias Yu TRAINING EXECUTIVE Unavailable [phone] Jocelin Cleveland NP Unavailable Geoffrey Parekh MD Primary Care Provider María vailable Encounter Details Date Type Department Care Team Description 05/21/2015 Wellness Visit Medical Records [address] [place] [address] Doreen Workman DO Social History Tobacco Use [...] on filedocumented in this encounter Care Teams Kineseologist Relationship Specialty Start Date End Date Doreen Workman DO PCP - General Internal Medicine 07/04/14 09/23/20 Adriana Sewell MD [address] [place] [address] [phone] PCP - General Internal Medicine 09/24/20 03/15/23 Geoffrey Parekh MD [address] [place] [address] 6[address] PCP - General Family Practice 03/16/23 Fabio Forman MD Specialist Cardiology 06/04/20 Jeremias Yu NP [address] [place] [address] 78643 Nurse Practitioner Cardiology 12/15/20 Jocelin Cleveland NP [address] [place] [address] 26860 Cardiology 11/05/22 documented as of this encounter
--- OUTSIDE RECORDS SUMMARY | 2025-03-19 15:07 | XMS_ITS | Encounter Summary ---
Author Organization [facility] Address [address] [place] [address] Care Team Providers Care Paving Inspector Name Role Phone Doreen Workman DO Primary Care Pro vider Unavailable Fabio Forman MD Unavailable Adriana Sewell MD Primary Care Provider Jeremias Yu NP Unavailable [phone] Jocelin Cleveland NP Unavailable Geoffrey Parekh MD Primary Care Provider María vailable Reason for Visit * Reason Onset Date Comments Echocardiogram 06/27/2015 Encounter Details Date Type Department Care Team Description 06/27/2015 Telephone Cardiology - [address] [id number] Doreen Workman, Echocardiogram Social History Tobacco Use Types Packs/Day Years [...] encounter Miscellaneous Notes * Telephone Encounter - Milton Yost L.P.N. - 06/27/2015 12:37 PM EST faxed * Telephone Encounter - Shilpasean Lemusa - 06/27/2015 11:55 AM EST Patient needs results to be faxed to [facility] cardiology [phone] att Fabio Walker, patient is being seen today at 1:00pm. * Telephone Encounter - Carolina Chinoacho - 06/27/2015 11:52 AM EST Pt looking for the result of her echo. She would like the results faxed to a Specialist she is seeing today. Please call. documented in this encounter Plan of Treatment Not on file documented as of this encounter Visit Diagnoses Not on filedocumented in this encounter Care Teams Paving Inspector Relationship Specialty Start Date End Date Doreen Workman DO PCP - General Internal Medicine 07/04/14 09/23/20 Adriana Sewell MD [address] [place] [address] 34459 PCP - General Internal Medicine 09/24/20 03/15/23 Geoffrey Parekh MD [address] [place] [address] 24111 PCP - General Family Practice 03/16/23 Fabio Forman MD Specialist Cardiology 06/04/20 Jeremias Yu NP [address] [place] [address] 33794 Nurse Practitioner Cardiology 12/15/20 Jocelin Cleveland NP [address] [place] [address] 72837 Cardiology 11/05/22 documented as of this encounter
--- OUTSIDE RECORDS SUMMARY | 2025-03-19 15:07 | XMS_ITS | Encounter Summary ---
Author Organization [facility] Address [address] [place] [address] Care Team Providers Care Post Anesthesia Care Unit Nurse Name Role Phone Doreen Workman DO Primary Care Pro vider Unavailable Fabio Forman MD Unavailable Adriana Sewell MD Primary Care Provider Jeremias Yu DATA EXAMINATION CLERK Unavailable Jocelin Cleveland NP Unavailable [phone] Geoffrey Parekh MD Primary Care Provider María vailable Reason for Referral * EXTERNAL (Routine) - Authorized/Booked Specialty Diagnoses / Procedures Referred By Joon greenfield Referred To Contact Neurology Procedures REFERRAL TO NEUROLOGY Doreen Workman DO [address] [facility] [address], [address] [place] [address] Referral ID Status Reason Start Date Expiration Date V isits Requested Visits Authorized SEE NOTE Authorized/B ooked 07/12/2015 10/13/2015 1 1 Encounter Details Date Type Department Care Team Description 07/12/2015 Orders Only Adult Medicine [address] [address] Doreen Workman DO Social History Tobacco Use [...] on filedocumented in this encounter Care Teams Post Anesthesia Care Unit Nurse Relationship Specialty Start Date End Date Doreen Workman DO PCP - General Internal Medicine 07/04/14 09/23/20 Adriana Sewell MD [address] [place] [address] 77455 PCP - General Internal Medicine 09/24/20 03/15/23 Geoffrey Parekh MD [address] [place] [address] 64435 PCP - General Family Practice 03/16/23 Fabio Forman MD Specialist Cardiology 06/04/20 Jeremias Yu NP [address] [place] [address] 85137 Nurse Practitioner Cardiology 12/15/20 Jocelin Cleveland NP [address] [place] [address] 89337 Cardiology 11/05/22 documented as of this encounter
--- OUTSIDE RECORDS SUMMARY | 2025-03-19 15:07 | XMS_ITS | Encounter Summary ---
Author Organization [facility] Address [address] [place] [address] Care Team Providers Care Lumber Chain Offbearer Name Role Phone Doreen Workman DO Primary Care Pro vider Unavailable Fabio Forman MD Unavailable [phone] Adriana Sewell MD Primary Care Provider [phone] Jeremias Yu HEAD TENNIS COACH Unavailable Jocelin Cleveland NP Unavailable Geoffrey Parekh MD Primary Care Provider María vailable Encounter Details Date Type Department Care Team Description 07/02/2015 Release of Information Medical Records [address] [place] [address] 70063 Abstract, Provider Social History Tobacco Use Types [...] on filedocumented in this encounter Care Teams Lumber Chain Offbearer Relationship Specialty Start Date End Date Doreen Workman DO PCP - General Internal Medicine 07/04/14 09/23/20 Adriana Sewell MD [address] [place] [address] 01020 PCP - General Internal Medicine 09/24/20 03/15/23 Geoffrey Parekh MD [address] [place] [address] [address] PCP - General Family Practice 03/16/23 Fabio Forman MD Specialist Cardiology 06/04/20 Jeremias Yu NP [address] [place] [address] 47664 Nurse Practitioner Cardiology 12/15/20 Jocelin Cleveland NP [address] [place] [address] [address] Cardiology 11/05/22 documented as of this encounter
--- OUTSIDE RECORDS SUMMARY | 2025-03-19 15:07 | XMS_ITS | Encounter Summary ---
Author Organization [facility] Address [address] [place] [address] Care Team Providers Care Team Primary Care Physician Name Role Phone Doreen Workman DO Primary Care Pro vider Unavailable Fabio Forman MD Unavailable Adriana Sewell MD Primary Care Provider Jeremias Yu NP Unavailable Jocelin Cleveland NP Unavailable [phone] Geoffrey Parekh MD Primary Care Provider María vailable Reason for Visit * Reason Onset Date Comments Medication 07/09/2015 Encounter Details Date Type Department Care Team Description 07/09/2015 Telephone Adult [address] [phone] Doreen Workman DO Medication Social History Tobacco Use Types Packs/Day Years [...] encounter Miscellaneous Notes * Telephone Encounter - Doreen Hightower DO - 07/12/2015 7:58 PM EST done * Telephone Encounter - Ainsley Jensen M.A. - 07/11/2015 4:03 PM EST I called pt & advised provider does not prescribe hypnotics, she would like to be referred to neuro/sleep * Telephone Encounter - Doreen Hightower DO - 07/11/2015 2:46 PM EST I will be happy to refer her to neuro/sleep specialist but I dont' prescribe hypnotics * Telephone Encounter - Reema Penaloza M.A. 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 Pt would like to take the medication Hetlioz.. I have spoke with Ed from [employer]. He would like to speak with Dr Fernandez about this medication and if it is something the pt should try. He will be dropping off literature about this medication. * Telephone Encounter - Naima Rodriguez - 07/09/2015 1:01 PM EST SHANNAN VINCENT FROM [employer] IS CALLING TO SPEAK TO DR FERNANDEZ ABOUT HETLIOZ MEDICATION. documented in this encounter Plan of Treatment Not on file documented as of this encounter Visit Diagnoses Not on filedocumented in this encounter Care Teams Team Primary Care Physician Relationship Specialty Start Date End Date Doreen Workman DO PCP - General Internal Medicine 07/04/14 09/23/20 Adriana Sewell MD [address] [place] [address] 77797 PCP - General Internal Medicine 09/24/20 03/15/23 Geoffrey Parekh MD [address] [place] [address] 73014 PCP - General Family Practice 03/16/23 Fabio Forman MD Specialist Cardiology 06/04/20 Jeremias Yu NP [address] [place] [address] 21193 Nurse Practitioner Cardiology 12/15/20 Jocelin Cleveland NP [address] [place] [address] 81369 Cardiology 11/05/22 documented as of this encounter
--- OUTSIDE RECORDS SUMMARY | 2025-03-19 15:07 | XMS_ITS | Encounter Summary ---
Author Organization [facility] Address [address] [place] [address] Care Team Providers Care Bottom Pounder Cement Shoes Name Role Phone Doreen Workman DO Primary Care Pro vider Unavailable Fabio Forman MD Unavailable Adriana Sewell MD Primary Care Provider [phone] Jeremias Yu NP Unavailable [phone] Jocelin Cleveland NP Unavailable [phone] Geoffrey Parekh MD Primary Care Provider María vailable Reason for Visit * Reason Onset Date Comments Orders Call 07/11/2014 Encounter Details Date Type Department Care Team Description 07/11/2014 Telephone Adult [address] [phone] Doreen Workman DO Orders Call Social History Tobacco Use Types Packs/Day Years [...] encounter Miscellaneous Notes * Telephone Encounter - Saira Guan R.N. - 07/11/2014 4:22 PM EST Pt states she always has blood work when she is seen, she wanted to be sure that Yuniel bynum did not want her to have any labs after today's visit? * Telephone Encounter - Diana Hernesto - 07/11/2014 4:16 PM EST Wants orders for cbc to be put in today documented in this encounter Plan of Treatment Not on file documented as of this encounter Visit Diagnoses Not on filedocumented in this encounter Care Teams Bottom Pounder Cement Shoes Relationship Specialty Start Date End Date Doreen Workman DO PCP - General Internal Medicine 07/04/14 09/23/20 Adriana Sewell MD [address] [place] [address] 64772 PCP - General Internal Medicine 09/24/20 03/15/23 Geoffrey Parekh MD [address] [place] [address] 39796 PCP - General Family Practice 03/16/23 Fabio Forman MD Specialist Cardiology 06/04/20 Jeremias Yu NP [address] [place] [address] 78023 Nurse Practitioner Cardiology 12/15/20 Jocelin Cleveland NP [address] [place] [address] 16990 Cardiology 11/05/22 documented as of this encounter
--- OUTSIDE RECORDS SUMMARY | 2025-03-19 15:07 | XMS_ITS | Encounter Summary ---
Author Organization [facility] Address [address] [place] [address] Care Team Providers Care Sink Maker Name Role Phone Fabio Forman MD Unavailable Adriana Sewell MD Primary Care Provider [phone] Jeremias Yu IT OPERATIONS SPECIALIST Unavailable [phone] Jocelin Cleveland IT OPERATIONS SPECIALIST Unavailable [phone] Geoffrey Parekh MD Primary Care Provider María vailable Encounter Details Date Type Department Care Team Description 11/12/2022 Hospital Medical Records [address] [place] [address] 34216 Social History Tobacco Use Types Packs/Day Years [...] on filedocumented in this encounter Care Teams Sink Maker Relationship Specialty Start Date End Date Adriana Sewell MD [address] [place] [address] [phone] PCP - General Internal Medicine 09/24/20 03/15/23 Geoffrey Parekh MD [address] [facility] [address] [place] [address] PCP - General Family Practice 03/16/23 Fabio Forman MD Specialist Cardiology 06/04/20 Jeremias Yu NP [address] [place] [address] 60457 Nurse Practitioner Cardiology 12/15/20 Jocelin Cleveland NP [address] [place] [address] [address] Cardiology 11/05/22 documented as of this encounter
--- OUTSIDE RECORDS SUMMARY | 2025-03-19 15:07 | XMS_ITS | Encounter Summary ---
Author Organization [facility] Address [address] [place] [address] Care Team Providers Care Welfare Eligibility Interviewer Name Role Phone Fabio Forman MD Unavailable Adriana Sewell MD Primary Care Provider [phone] Jeremias Yu NP Unavailable [phone] Jocelin Cleveland NP Unavailable [phone] Geoffrey Parekh MD Primary Care Provider María vailable Encounter Details Date Type Department Care Team Description 11/08/2022 [facility] Medical Records [address] [place] [address] Social History Tobacco Use Types Packs/Day Years [...] Date/Time Associated Diagnosis Comments OUTSIDE LAB Routine 11/12/2022 OUTSIDE EKG Routine 11/11/2022 OUTSIDE ECHO Routine 11/11/2022 OUTSIDE ULTRASOUND Routine 11/09/2022 OUTSIDE PLAIN FILM Routine 11/08/2022 OUTSIDE LAB Routine 11/08/2022 documented in this encounter Results * OUTSIDE LAB (11/12/2022) Provider Abstract LAB * OUTSIDE EKG (11/11/2022) Provider Abstract CARDIOLOGY * OUTSIDE ECHO (11/11/2022) Provider Abstract CARDIOLOGY * OUTSIDE ULTRASOUND (11/09/2022) Provider Abstract RADIOLOGY * OUTSIDE PLAIN FILM (11/08/2022) Provider Abstract RADIOLOGY * OUTSIDE LAB (11/08/2022) Provider Abstract LAB documented in this encounter Visit Diagnoses Not on filedocumented in this encounter Care Teams Welfare Eligibility Interviewer Relationship Specialty Start Date End Date Adriana Sewell MD [address] [place] [address] 59420 PCP - General Internal Medicine 09/24/20 03/15/23 Geoffrey Parekh MD [address] [place] [address] 65560 PCP - General Family Practice 03/16/23 Fabio Forman MD Specialist Cardiology 06/04/20 Jeremias Yu NP [address] [place] [address] 61474 Nurse Practitioner Cardiology 12/15/20 Jocelin Cleveland NP [address] [place] [address] 13687 Cardiology 11/05/22 documented as of this encounter
--- OUTSIDE RECORDS SUMMARY | 2025-03-19 15:07 | XMS_ITS | Encounter Summary ---
Author Organization [facility] Address [address] [place] [address] Care Team Providers Care Cupola Mechanic Name Role Phone Doreen Workman DO Primary Care Pro vider Unavailable Fabio Forman MD Unavailable [phone] Adriana Sewell MD Primary Care Provider [phone] Jeremias Yu SWEET PICKLED FRUIT MAKER Unavailable Jocelin Cleveland NP Unavailable Geoffrey Parekh MD Primary Care Provider María vailable Encounter Details Date Type Department Care Team Description 07/25/2015 Cyber Transport Systems Specialist Report Medical Records [address] [place] [address] 50341 Omer Sunshine MD Social History Tobacco Use Types Packs/Day [...] on filedocumented in this encounter Care Teams Cupola Mechanic Relationship Specialty Start Date End Date Doreen Workman DO PCP - General Internal Medicine 07/04/14 09/23/20 Adriana Sewell MD [address] [place] [address] [phone] PCP - General Internal Medicine 09/24/20 03/15/23 Geoffrey Parekh MD [address] [place] [address] 24570 PCP - General Family Practice 03/16/23 Fabio Forman MD Specialist Cardiology 06/04/20 Jeremias Yu NP [address] [place] [address] 42187 Nurse Practitioner Cardiology 12/15/20 Jocelin Cleveland NP [address] [place] [address] 09869 Cardiology 11/05/22 documented as of this encounter
--- OUTSIDE RECORDS SUMMARY | 2025-03-19 15:07 | XMS_ITS | Encounter Summary ---
Author Organization [facility] Address [address] [place] [address] Care Team Providers Care Curbing Stonecutter Name Role Phone Fabio Forman MD Unavailable Jeremias Yu NP Unavailable [phone] Jocelin Cleveland NP Unavailable [phone] Geoffrey Parekh MD Primary Care Provider María vailable Encounter Details Date Type Department Care Team Description 08/08/2023 [facility] Medical Records [address] [place] [address] Abstract, Provider Social History Tobacco Use Types [...] Date/Time Associated Diagnosis Comments OUTSIDE LAB Routine 08/08/2023 documented in this encounter Results * OUTSIDE LAB (08/08/2023) Provider Abstract LAB documented in this encounter Visit Diagnoses Not on filedocumented in this encounter Care Teams Curbing Stonecutter Relationship Specialty Start Date End Date Geoffrey Parekh MD [address] [place] [address] 30074 PCP - General Family Practice 03/16/23 Fabio Forman MD Specialist Cardiology 06/04/20 Jeremias Yu NP Nurse Practitioner Cardiology 12/15/20 Jocelin Cleveland NP [address] [place] [address] Cardiology 11/05/22 documented as of this encounter
--- OUTSIDE RECORDS SUMMARY | 2025-03-19 15:07 | XMS_ITS | Encounter Summary ---
Author Organization [facility] Address [address] [place] [address] Care Team Providers Care Employment Supervisor Name Role Phone Doreen Workman DO Primary Care Pro vider Unavailable Fabio Forman MD Unavailable [phone] Adriana Sewell MD Primary Care Provider Jeremias Yu NP Unavailable Jocelin Cleveland NP Unavailable Geoffrey Parekh MD Primary Care Provider María vailable Encounter Details Date Type Department Care Team Description 01/23/2020 Inspector Receiving Report Medical Records [address] [place] [address] Jeremias Yu, HANNAH [address] [place], [place] [phone] Social History Tobacco Use Types Packs/Day Years [...] on filedocumented in this encounter Care Teams Employment Supervisor Relationship Specialty Start Date End Date Doreen Workman DO PCP - General Internal Medicine 07/04/14 09/23/20 Adriana Sewell MD [address] [place] [address] 19576 PCP - General Internal Medicine 09/24/20 03/15/23 Geoffrey Parekh MD [address] [place] [address] 7[address] PCP - General Family Practice 03/16/23 Fabio Forman MD Specialist Cardiology 06/04/20 Jeremias Yu NP [address] [place] [address] 58726 Nurse Practitioner Cardiology 12/15/20 Jocelin Cleveland NP [address] [place] [address] 9[address]80 Cardiology 11/05/22 documented as of this encounter
--- OUTSIDE RECORDS SUMMARY | 2025-03-19 15:07 | XMS_ITS | Encounter Summary ---
Author Organization [facility] Address [address] [place] [address] Care Team Providers Care Tax Services Professional Name Role Phone Fabio Forman MD Unavailable [phone] Adriana Sewell MD Primary Care Provider [phone] Jeremias Yu DIRECTOR OF EARLY CHILDHOOD EDUCATION Unavailable Jocelin Cleveland DIRECTOR OF EARLY CHILDHOOD EDUCATION Unavailable [phone] Geoffrey Parekh MD Primary Care Provider María vailable Reason for Visit * Reason Onset Date Comments LAB WORK 12/12/2020 Encounter Details Date Type Department Care Team Description 12/12/2020 Telephone General Surgery - [place] [address] [facility] [address] [place] [phone] Sarah Beth Ochoa, MS,RDN,LDN [address] [facility] [address] [place] [address] LAB WORK Social History Tobacco Use Types Packs/Day Years [...] have Coronavirus / COVID-19? No / Unsure 11/18/2020 8:32 AM EDT documented as of this encounter Miscellaneous Notes * Telephone Encounter - Sarah Beth Ochoa MS,RDN,LDN - 12/12/2020 8:21 AM EDT Please order bariatric labs documented in this encounter Plan of Treatment Not on file documented as of this encounter Visit Diagnoses Not on filedocumented in this encounter Care Teams Tax Services Professional Relationship Specialty Start Date End Date Adriana Sewell MD [address] [place] [address] PCP - General Internal Medicine 09/24/20 03/15/23 Geoffrey Parekh MD [address] [place] [address] PCP - General Family Practice 03/16/23 Fabio Forman MD Specialist Cardiology 06/04/20 Jeremias Yu NP [address] [place] [address] 51463 Nurse Practitioner Cardiology 12/15/20 Jocelin Cleveland NP [address] [place] [address] 65882 Cardiology 11/05/22 documented as of this encounter
--- OUTSIDE RECORDS SUMMARY | 2025-03-19 15:07 | XMS_ITS | Encounter Summary ---
Author Organization [facility] Address [address] [place] [address] Care Team Providers Care Mexican Food Maker Hand Name Role Phone Doreen Workman DO Primary Care Pro vider Unavailable Fabio Forman MD Unavailable [phone] Adriana Sewell MD Primary Care Provider Jeremias Yu HUMAN ANATOMY TEACHER Unavailable Jocelin Cleveland NP Unavailable [phone] Geoffrey Parekh MD Primary Care Provider María vailable Encounter Details Date Type Department Care Team Description 07/09/2020 Orders Only Radiology - [address] [address] Doreen Workman DO Social History Tobacco Use [...] or suspected to have Coronavirus / COVID-19? Unable to assess 06/18/2020 10:01 AM EST documented as of this encounter Plan of Treatment Not on file documented as of this encounter Visit Diagnoses Not on filedocumented in this encounter Care Teams Mexican Food Maker Hand Relationship Specialty Start Date End Date Doreen Workman DO PCP - General Internal Medicine 07/04/14 09/23/20 Adriana Sewell MD [address] [place] [address] PCP - General Internal Medicine 09/24/20 03/15/23 Geoffrey Parekh MD [address] [place] [address] PCP - General Family Practice 03/16/23 Fabio Forman MD Specialist Cardiology 06/04/20 Jeremias Yu NP [address] [place] [address] [id number] Nurse Practitioner Cardiology 12/15/20 Jocelin Cleveland NP [address] [place] [address] Cardiology 11/05/22 documented as of this encounter
--- OUTSIDE RECORDS SUMMARY | 2025-03-19 15:08 | XMS_ITS | Encounter Summary ---
Author Organization [facility] Address [address] [place] [address] Care Team Providers Care Cutter Grind Tool Technician Name Role Phone Fabio Forman MD Unavailable Adriana eSwell MD Primary Care Provider [phone] Jeremias Yu NP Unavailable Jocelin Cleveland NP Unavailable Geoffrey Parekh MD Primary Care Provider María vailable Reason for Visit * Reason Onset Date Comments REFERRAL 02/20/2021 patient calling re: referral to wound care - patient has not be contacted by wound care clinic - patient states she has also called and left a voicemail with wound care - patient states this is an fyi for Norah Guzman Encounter Details Date Type Department Care Team Description 02/20/2021 Telephone Adult Medicine [facility] [address] [place], [place] [phone] Norah Guzman PA-C [address] [place], [place] [phone] REFERRAL (patient calling re: referral to wound care - patient has not be contacted by wound care clinic - patient states she has also called and left a voicemail with wound care - patient states this is an fyi for Norah Guzman ) Social History Tobacco Use Types Packs/Day [...] have Coronavirus / COVID-19? No / Unsure 02/11/2021 2:51 PM EDT documented as of this encounter Miscellaneous Notes * Telephone Encounter - Karlie Villagran C.M.A. - 02/20/2021 1:20 PM EDT Message left for patient to return my call. Please inform pt that Norah is out until Tuesday02/25/21, the referrals department faxed all the information to [facility] on 02/12/21, no insurance referral required per patient's insurance. * Telephone Encounter - Geena Butcher - 02/20/2021 12:21 PM EDT patient calling re: referral to wound care - patient has not be contacted by wound care clinic - patient states she has also called and left a voicemail with wound care - patient states this is an fyi for Norah Guzman - patient states Norah had asked patient to call back if she had not heard from wound care clinic - patient also states the wound looks really good - no more red documented in this encounter Plan of Treatment Not on file documented as of this encounter Visit Diagnoses Not on filedocumented in this encounter Care Teams Cutter Grind Tool Technician Relationship Specialty Start Date End Date Adriana Sewell MD [address] [place] [address] PCP - General Internal Medicine 09/24/20 03/15/23 Geoffrey Parekh MD [address] [place] [address] PCP - General Family Practice 03/16/23 Fabio Forman MD Specialist Cardiology 06/04/20 Jeremias Yu NP [address] [place] [address] Nurse Practitioner Cardiology 12/15/20 Jocelin Cleveland NP [address] [place] [address] Cardiology 11/05/22 documented as of this encounter
--- OUTSIDE RECORDS SUMMARY | 2025-03-19 15:08 | XMS_ITS | Encounter Summary ---
Author Organization [facility] Address [address] [place] [address] Care Team Providers Care Hot Stick Worker Name Role Phone Doreen Workman DO Primary Care Pro vider Unavailable Fabio Forman MD Unavailable Adriana Sewell MD Primary Care Provider [phone] Jeremias Yu DATA ANALYST Unavailable [phone] Jocelin Cleveland NP Unavailable Geoffrey Parekh MD Primary Care Provider María vailable Reason for Referral * Non ALLAN (Routine) - Authorized/Booked Specialty Diagnoses / Procedures Referred By Contbiju greenfield Referred To Contact Physiatry Procedures REFERRAL TO PHYSIATRY Doreen Workman DO [address] [place], [place] [id number] [place] [address]/[address] [address] Referral ID Status Reason Start Date Expiration Date V isits Requested Visits Authorized [id number] Authorized/B ooked 03/07/2018 03/07/2019 12 12 Encounter Details Date Type Department Care Team Description 03/07/2018 Orders Only Adult Medicine [address] [address] Doreen Workman DO Social History Tobacco Use [...] on filedocumented in this encounter Care Teams Hot Stick Worker Relationship Specialty Start Date End Date Doreen Workman DO PCP - General Internal Medicine 07/04/14 09/23/20 Adriana Sewell MD [address] [place] [address] PCP - General Internal Medicine 09/24/20 03/15/23 Geoffrey Parekh MD [address] [place] [address] PCP - General Family Practice 03/16/23 Fabio Forman MD Specialist Cardiology 06/04/20 Jeremias Yu NP [address] [place] [address] Nurse Practitioner Cardiology 12/15/20 Jocelin Cleveland NP [address] [place] [address] [phone] Cardiology 11/05/22 documented as of this encounter
--- OUTSIDE RECORDS SUMMARY | 2025-03-19 15:08 | XMS_ITS | Encounter Summary ---
Author Organization [facility] Address [address] [place] [address] Care Team Providers Care Manager News Name Role Phone Doreen Workman DO Primary Care Pro vider Unavailable Fabio Forman MD Unavailable [phone] Adriana Sewell MD Primary Care Provider [phone] Jeremias Yu CARPET INSTALLER Unavailable [phone] Jocelin Cleveland NP Unavailable Geoffrey Parekh MD Primary Care Provider María vailable Encounter Details Date Type Department Care Team Description 03/21/2018 SCAN Medical Records [address] [place] [address] Abstract, Provider Social History Tobacco Use Types [...] on filedocumented in this encounter Care Teams Manager News Relationship Specialty Start Date End Date Doreen Workman DO PCP - General Internal Medicine 07/04/14 09/23/20 Adriana Sewell MD [address] [place] [address] PCP - General Internal Medicine 09/24/20 03/15/23 Geoffrey Parekh MD [address] [place] [address] PCP - General Family Practice 03/16/23 Fabio Forman MD Specialist Cardiology 06/04/20 Jeremias Yu NP [address] [place] [address] Nurse Practitioner Cardiology 12/15/20 Jocelin Cleveland NP [address] [place] [address] Cardiology 11/05/22 documented as of this encounter
--- OUTSIDE RECORDS SUMMARY | 2025-03-19 15:08 | XMS_ITS | Encounter Summary ---
Author Organization [facility] Address [address] [place] [address] Care Team Providers Care Marine Superintendent Name Role Phone Fabio Forman MD Unavailable Jeremias Yu NP Unavailable [phone] Jocelin Cleveland FLOWER ARRANGER Unavailable [phone] Geoffrey Parekh MD Primary Care Provider María vailable Encounter Details Date Type Department Care Team Description 07/21/2023 Orders Only Medical Records [address] [place] [address] Social History Tobacco Use Types Packs/Day Years [...] Name Priority Date/Time Associated Diagnosis Comments OUTSIDE SLEEP STUDY Routine 04/01/2022 documented in this encounter Results * OUTSIDE SLEEP STUDY (04/01/2022) [facility] PUL[facility] documented in this encounter Visit Diagnoses Not on filedocumented in this encounter Care Teams Marine Superintendent Relationship Specialty Start Date End Date Geoffrey Parekh MD [address] [place] [address] PCP - General Family Practice 03/16/23 Fabio Forman MD Specialist Cardiology 06/04/20 Jeremias Yu NP Nurse Practitioner Cardiology 12/15/20 Jocelin Cleveland NP [address] [place] [address] Cardiology 11/05/22 documented as of this encounter
--- OUTSIDE RECORDS SUMMARY | 2025-03-19 15:08 | XMS_ITS | Encounter Summary ---
Author Organization [facility] Address [address] [place] [address] Care Team Providers Care Timber Packer Name Role Phone Fabio Forman MD Unavailable [phone] Adriana Sewell MD Primary Care Provider [phone] Jeremias Yu LADIES ATTENDANT Unavailable [phone] Jocelin Cleveland LADIES ATTENDANT Unavailable [phone] Geoffrey Parekh MD Primary Care Provider María vailable Encounter Details Date Type Department Care Team Description 12/02/2020 Bid Writer Report Medical Records [address] [place] [address] Rebecca Bernard MD Social History Tobacco Use Types Packs/Day [...] on filedocumented in this encounter Care Teams Timber Packer Relationship Specialty Start Date End Date Adriana Sewell MD [address] [place] [address] PCP - General Internal Medicine 09/24/20 03/15/23 Geoffrey Parekh MD [address] [place] [address] PCP - General Family Practice 03/16/23 Fabio Forman MD Specialist Cardiology 06/04/20 Jeremias Yu NP [address] [place] [address] Nurse Practitioner Cardiology 12/15/20 Jocelin Cleveland NP [address] [place] [address] Cardiology 11/05/22 documented as of this encounter
--- OUTSIDE RECORDS SUMMARY | 2025-03-19 15:08 | XMS_ITS | Encounter Summary ---
Author Organization [facility] Address [address] [place] [address] Care Team Providers Care Mender Hand Name Role Phone Fabio Forman MD Unavailable Adriana Sewell MD Primary Care Provider [phone] Jeremias Yu KENNEL HELPER Unavailable Jocelin Cleveland KENNEL HELPER Unavailable [phone] Geoffrey Parekh MD Primary Care Provider Maíra vailable Encounter Details Date Type Department Care Team Description 04/03/2021 Transfer Records Medical Records [address] [place] [address] Abstract, Provider Social History Tobacco Use Types [...] have Coronavirus / COVID-19? No / Unsure 03/10/2021 7:58 AM EDT documented as of this encounter Plan of Treatment Not on file documented as of this encounter Visit Diagnoses Not on filedocumented in this encounter Care Teams Mender Hand Relationship Specialty Start Date End Date Adriana Sewell MD [address] [place] [address] [phone] PCP - General Internal Medicine 09/24/20 03/15/23 Geoffrey Parekh MD [address] [place] [address] PCP - General Family Practice 03/16/23 Fabio Forman MD Specialist Cardiology 06/04/20 Jeremias Yu NP [address] [place] [address] Nurse Practitioner Cardiology 12/15/20 Jocelin Cleveland NP [address] [place] [address] Cardiology 11/05/22 documented as of this encounter
--- OUTSIDE RECORDS SUMMARY | 2025-03-19 15:08 | XMS_ITS | Encounter Summary ---
Author Organization [facility] Address [address] [place] [address] Care Team Providers Care Nursery Helper Name Role Phone Fabio Forman MD Unavailable Jeremias Yu NP Unavailable Jocelin Cleveland NP Unavailable [phone] Geoffrey Parekh MD Primary Care Provider María vailable Reason for Visit * Reason Onset Date Comments refill request 04/18/2023 Encounter Details Date Type Department Care Team Description 04/18/2023 Telephone Cardio [facility] [address] [facility] [address] [place] [address] Fabio Forman MD [address] [place] [address] [phone] refill request Social History Tobacco Use Types Packs/Day Years [...] suspected to have Coronavirus/COVID-19? No / Unsure 04/01/2023 9:44 AM EST documented as of this encounter Miscellaneous Notes * Telephone Encounter - Alyssia Solitario - 04/18/2023 9:21 AM EST Patient needs her lisinopril 40 mg filled for a 90 day supply. Pharmacy confirmed. documented in this encounter Plan of Treatment Not on file documented as of this encounter Visit Diagnoses Not on filedocumented in this encounter Care Teams Nursery Helper Relationship Specialty Start Date End Date Geoffrey Parekh MD [address] [place] [address] PCP - General Family Practice 03/16/23 Fabio Forman MD Specialist Cardiology 06/04/20 Jeremias Yu NP Nurse Practitioner Cardiology 12/15/20 Jocelin Cleveland NP [address] [place] [address] Cardiology 11/05/22 documented as of this encounter
--- OUTSIDE RECORDS SUMMARY | 2025-03-19 15:08 | XMS_ITS | Encounter Summary ---
Author Organization [email or web address] Address [address] [place] [address] Care Team Providers Care Web Sizer Name Role Phone Fabio Forman MD Unavailable Jeremias Yu NP Unavailable Jocelin Cleveland NP Unavailable Geoffrey Parekh MD Primary Care Provider María vailable Encounter Details Date Type Department Care Team Description 10/07/2023 Telephone Cardio [facility]VC [facility] [address] [facility] [address] [place], [place] [phone] Dominique Collier MD [address] [place], [place] [phone] Social History Tobacco Use Types Packs/Day Years [...] on filedocumented in this encounter Care Teams Web Sizer Relationship Specialty Start Date End Date Geoffrey Parekh MD [address] [place] [address]235 PCP - General Family Practice 03/16/23 Fabio Forman MD Specialist Cardiology 06/04/20 Jeremias Yu NP Nurse Practitioner Cardiology 12/15/20 Jocelin Cleveland NP [address] [place] [address] Cardiology 11/05/22 documented as of this encounter
--- OUTSIDE RECORDS SUMMARY | 2025-03-19 15:08 | XMS_ITS | Encounter Summary ---
Author Organization [facility] Address [address] [place] [address] Care Team Providers Care National Sales Director Name Role Phone Fabio Forman MD Unavailable [phone] Adriana Sewell MD Primary Care Provider [phone] Jeremias Yu PHARMACEUTICAL OFFICER Unavailable [phone] Jocelin Cleveland PHARMACEUTICAL OFFICER Unavailable [phone] Geoffrey Parekh MD Primary Care Provider María vailable Encounter Details Date Type Department Care Team Description 12/28/2022 Business Doc Medical Records [address] [place] [address] Abstract, Provider Social History Tobacco Use Types [...] suspected to have Coronavirus/COVID-19? No / Unsure 12/23/2022 7:58 AM EDT documented as of this encounter Plan of Treatment Not on file documented as of this encounter Visit Diagnoses Not on filedocumented in this encounter Care Teams National Sales Director Relationship Specialty Start Date End Date Adriana Sewell MD [address] [place] [address] PCP - General Internal Medicine 09/24/20 03/15/23 Geoffrey Parekh MD [address] [place] [address] PCP - General Family Practice 03/16/23 Fabio Forman MD Specialist Cardiology 06/04/20 Jeremias Yu NP [address] [place] [address] Nurse Practitioner Cardiology 12/15/20 Jocelin Cleveland NP [address] [place] [address]27 Cardiology 11/05/22 documented as of this encounter
--- OUTSIDE RECORDS SUMMARY | 2025-03-19 15:08 | XMS_ITS | Encounter Summary ---
Author Organization [facility] Address [address] [place] [address] Care Team Providers Care Ash Worker Name Role Phone Fabio Forman MD Unavailable [phone] Adriana Sewell MD Primary Care Provider [phone] Jeremias Yu NP Unavailable Jocelin Cleveland NP Unavailable [phone] Geoffrey Parekh MD Primary Care Provider María vailable Encounter Details Date Type Department Care Team Description 01/03/2023 Orders Only Cardio [facility] [address] [place] [address] [address] [place] [phone] Default, Provider Social History Tobacco Use Types Packs/Day [...] Date/Time Associated Diagnosis Comments OUTSIDE LAB Routine 12/13/2022 documented in this encounter Results * OUTSIDE LAB (12/13/2022) Provider Default LAB documented in this encounter Visit Diagnoses Not on filedocumented in this encounter Care Teams Ash Worker Relationship Specialty Start Date End Date Adriana Sewell MD [address] [place] [address] PCP - General Internal Medicine 09/24/20 03/15/23 Geoffrey Parekh MD [address] [place] [address] PCP - General Family Practice 03/16/23 Fabio Forman MD Specialist Cardiology 06/04/20 Jeremias Yu NP [address] [place] [address] Nurse Practitioner Cardiology 12/15/20 Jocelin Cleveland NP [address] [place] [address] Cardiology 11/05/22 documented as of this encounter
--- OUTSIDE RECORDS SUMMARY | 2025-03-19 15:08 | XMS_ITS | Encounter Summary ---
Author Organization [facility] Address [address] [place] [address] Care Team Providers Care Formation Testing Operator Name Role Phone Fabio Forman MD Unavailable [phone] Adriana Sewell MD Primary Care Provider [phone] Jeremias Yu ANIMAL PATHOLOGIST Unavailable [phone] Jocelin Cleveland ANIMAL PATHOLOGIST Unavailable [phone] Geoffrey Parekh MD Primary Care Provider María vailable Encounter Details Date Type Department Care Team Description 12/14/2022 Hospital Medical Records [address] [place] [address] Social History Tobacco Use Types Packs/Day Years [...] suspected to have Coronavirus/COVID-19? No / Unsure 12/17/2022 2:12 PM EDT documented as of this encounter Plan of Treatment Not on file documented as of this encounter Visit Diagnoses Not on filedocumented in this encounter Care Teams Formation Testing Operator Relationship Specialty Start Date End Date Adriana Sewell MD [address] [place] [address] [phone] PCP - General Internal Medicine 09/24/20 03/15/23 Geoffrey Parekh MD [address] [facility] [address] [facility] [address] [place] [address] PCP - General Family Practice 03/16/23 Fabio Forman MD Specialist Cardiology 06/04/20 Jeremias Yu NP [address] [place] [address] Nurse Practitioner Cardiology 12/15/20 Jocelin Cleveland NP [address] [place] [address] [address] Cardiology 11/05/22 documented as of this encounter
--- OUTSIDE RECORDS SUMMARY | 2025-03-19 15:08 | XMS_ITS | Encounter Summary ---
Author Organization [facility] Address [address] [place] [address] Care Team Providers Care Mechanical Systems Designer Name Role Phone Fabio Forman MD Unavailable Jeremias Yu NP Unavailable [phone] Jocelin Cleveland NP Unavailable [phone] Geoffrey Parekh MD Primary Care Provider María vailable Reason for Visit * Reason Onset Date Comments APPOINTMENT 09/28/2023 Called pt to res chedule 09/28/23 appt with Jeremias Yu Encounter Details Date Type Department Care Team Description 09/28/2023 Telephone Cardio [facility] [address] [place] [address] [address] [place] [phone] Fabio Forman MD [address] [place] [address] [phone] APPOINTMENT (Called pt to reschedule 09/28/23 appt with Jeremias Yu) Social History Tobacco Use Types Packs/Day Years [...] encounter Miscellaneous Notes * Telephone Encounter - Myranda Partida - 09/28/2023 7:46 AM EDT I called Chasity and left a voicemail letting her know we had to cancel her 09/28/23 appointment withJeremias Yu because he is out sick. I said in my message that I rescheduled her appointment with to Thrusday, October 27, 2023 at 4:[address] Forman. Appointment reminder mailed. documented in this encounter Plan of Treatment Not on file documented as of this encounter Visit Diagnoses Not on filedocumented in this encounter Care Teams Mechanical Systems Designer Relationship Specialty Start Date End Date Geoffrey Parekh MD [address] [place] [address] PCP - General Family Practice 03/16/23 Fabio Forman MD Specialist Cardiology 06/04/20 Jeremias Yu NP Nurse Practitioner Cardiology 12/15/20 Jocelin Cleveland NP [address] [place] [address] Cardiology 11/05/22 documented as of this encounter
--- OUTSIDE RECORDS SUMMARY | 2025-03-19 15:09 | XMS_ITS | Encounter Summary ---
Author Organization [facility] Address [address] [place] [address] Care Team Providers Care Community Engagement Manager Name Role Phone Doreen Workman DO Primary Care Pro vider Unavailable Fabio Forman MD Unavailable [phone] Adriana Sewell MD Primary Care Provider [phone] Jeremias Yu SUPERVISOR SHED WORKERS Unavailable Jocelin Cleveland NP Unavailable [phone] Geoffrey Parekh MD Primary Care Provider María vailable Encounter Details Date Type Department Care Team Description 09/02/2020 Board Certified Family Physician Report Medical Records [address] [place] [address] Rebecca Bernard MD Social History Tobacco Use [...] have Coronavirus / COVID-19? No / Unsure 09/03/2020 8:38 AM EDT documented as of this encounter Plan of Treatment Not on file documented as of this encounter Visit Diagnoses Not on filedocumented in this encounter Care Teams Community Engagement Manager Relationship Specialty Start Date End Date KraDoreen Gunter DO PCP - General Internal Medicine 07/04/14 09/23/20 Adriana Sewell MD [address] [place] [address] PCP - General Internal Medicine 09/24/20 03/15/23 Geoffrey Parekh MD [address] [place] [address] PCP - General Family Practice 03/16/23 Fabio Forman MD Specialist Cardiology 06/04/20 Jeremias Yu NP [address] [place] [address] Nurse Practitioner Cardiology 12/15/20 Jocelin Cleveland NP [address] [place] [address] Cardiology 11/05/22 documented as of this encounter
--- OUTSIDE RECORDS SUMMARY | 2025-03-19 15:09 | XMS_ITS | Encounter Summary ---
Author Organization [facility] Address [address] [place] [address] Care Team Providers Care Process Line Operator Name Role Phone Fabio Forman MD Unavailable Adriana Sewell MD Primary Care Provider [phone] Jeremias Yu NP Unavailable Jocelin Cleveland NP Unavailable Geoffrey Parekh MD Primary Care Provider María vailable Reason for Visit * Reason Onset Date Comments Letter 09/24/2020 Encounter Details Date Type Department Care Team Description 09/24/2020 Telephone Adult Medicine [address] [id number] Doreen Workman DO Letter Social History Tobacco Use Types Packs/Day Years [...] have Coronavirus / COVID-19? No / Unsure 09/22/2020 10:26 AM EDT documented as of this encounter Miscellaneous Notes * Telephone Encounter - Doreen Hightower DO - 10/02/2020 9:32 AM EDT Please p/o letter and I will sign it when n office tomorrow * Telephone Encounter - Maribell Kim M.A. - 09/24/2020 10:40 AM EDT Please see msg below pt requesting letter for housing ROSY 08/11/2020 F/U appt 10/06/2020 pe * Telephone Encounter - Zayra Rose - 09/24/2020 10:11 AM EDT Letter requested for: Housing Reason for letter: Pt has been living on a 2nd floor apt for the past 14 years. She has spoken to housing many times asking to please move her to a 1st floor apt or to a building where there are elevators available and she was told that she needs a letter form her doctor. Pt is 70, and due to all her health issues and balance, she has been having difficulties going up and down stairs. Specific notations needed in body of letter: Date needed for completion: DANIEL When completed: Mailed to their home at: [address] [facility] [address] documented in this encounter Plan of Treatment Not on file documented as of this encounter Visit Diagnoses Not on filedocumented in this encounter Care Teams Process Line Operator Relationship Specialty Start Date End Date Adriana Sewell MD [address] [place] [address] PCP - General Internal Medicine 09/24/20 03/15/23 Geoffrey Parekh MD [address] [place] [address] PCP - General Family Practice 03/16/23 Fabio Forman MD Specialist Cardiology 06/04/20 Jeremias Yu NP [address] [place] [address]40 Nurse Practitioner Cardiology 12/15/20 Jocelin Cleveland NP [address] [place] [address] Cardiology 11/05/22 documented as of this encounter
--- OUTSIDE RECORDS SUMMARY | 2025-03-19 15:09 | XMS_ITS | Encounter Summary ---
Author Organization [facility] Address [address] [place] [address] Care Team Providers Care Transmission Operator Name Role Phone Fabio Forman MD Unavailable Adriana Sewlel MD Primary Care Provider Jeremias Yu NP Unavailable Jocelin Cleveland NP Unavailable [phone] Geoffrey Parekh MD Primary Care Provider María vailable Reason for Referral * Non ALLAN (Routine) - Authorized/Booked Specialty Diagnoses / Procedures Referred By Joon greenfield Referred To Contact Gastroenterology Diagnoses Low mean corpuscular volume (MCV) Iron deficiency anemia, unspecified iron deficiency anemia type Procedures REFERRAL TO GASTROENTEROLOGY Arpita Zavala PA-C [address] [place] [address] Gastro [place]/175 175 [facility] [address] [place] [phone] Referral ID Status Reason Start Date Expiration Date V isits Requested Visits Authorized [id number] Authorized/B ooked 02/10/2023 02/10/2024 1 1 Encounter Details Date Type Department Care Team Description 02/10/2023 Orders Only Adult Medicine [address] [phone] Arpita Zavala PA-C [address] [place] [address] Iron deficiency anemia, unspecified iron deficiency anemia type (Primary Dx); Low mean corpuscular volume (MCV) Social History Tobacco Use Types Packs/Day Years [...] as of this encounter Visit Diagnoses Diagnosis Iron deficiency anemia, unspecified iron deficiency anemia type- Primary Low mean corpuscular volume (MCV) documented in this encounter Care Teams Transmission Operator Relationship Specialty Start Date End Date Adriana Sewell MD [address] [place] [address]183 PCP - General Internal Medicine 09/24/20 03/15/23 Geoffrey Parekh MD [address] [place] [address] PCP - General Family Practice 03/16/23 Fabio Forman MD Specialist Cardiology 06/04/20 Jeremias Yu NP [address] [place] [address] Nurse Practitioner Cardiology 12/15/20 Jocelin Cleveland NP [address] [place] [address] Cardiology 11/05/22 documented as of this encounter
--- OUTSIDE RECORDS SUMMARY | 2025-03-19 15:09 | XMS_ITS | Encounter Summary ---
Author Organization [facility] Address [address] [place] [address] Care Team Providers Care Mounting Machine Operator Name Role Phone Doreen Workman DO Primary Care Pro vider Unavailable Fabio Forman MD Unavailable [phone] Adriana Sewell MD Primary Care Provider [phone] Jeremias Yu NP Unavailable Jocelin Cleveland NP Unavailable Geoffrey Parekh MD Primary Care Provider María vailable Reason for Visit * Reason Comments Remote Device Check Encounter Details Date Type Department Care Team Description 08/30/2020 Remote Device Check Cardio PVC POC 154 300 [facility] 154 [place] [address] Dominique Collier MD 300 [facility] 154 [place], [place] [id number] Sick sinus syndrome (HCC) (Primary Dx) Social [...] have Coronavirus / COVID-19? No / Unsure 08/29/2020 8:54 AM EDT documented as of this encounter Progress Notes * Dominique Collier MD - 09/14/2020 6:02 PM EDT See interrogation details in attached report. Electronically Signed By: Dominique Collier 09/14/2020 6:02 PM documented in this encounter Plan of Treatment Pending Results Name Type Priority Associated Diagnoses Date /Time PVCA REMOTE PACE MAKER Cardiology Routine Sick sinus syndrome (HCC) 08/30/2020 documented as of this encounter Visit Diagnoses Diagnosis Sick sinus syndrome (HCC)- Primary Sinoatrial node dysfunction documented in this encounter Care Teams Mounting Machine Operator Relationship Specialty Start Date End Date Doreen Workman DO PCP - General Internal Medicine 07/04/14 09/23/20 Adriana Sewell MD [address] [place] [address] PCP - General Internal Medicine 09/24/20 03/15/23 Geoffrey Parekh MD [address] [place] [address] 395[address] PCP - General Family Practice 03/16/23 Fabio Forman MD Specialist Cardiology 06/04/20 Jeremias Yu NP [address] [place] [address] Nurse Practitioner Cardiology 12/15/20 Jocelin Cleveland NP [address] [place] [address] Cardiology 11/05/22 documented as of this encounter
--- OUTSIDE RECORDS SUMMARY | 2025-03-19 15:09 | XMS_ITS | Encounter Summary ---
Author Organization [facility] Address [address] [place] [address] Care Team Providers Care Creamery Worker Name Role Phone Fabio Forman MD Unavailable Adriana Sewell MD Primary Care Provider [phone] Jeremias Yu NP Unavailable Jocelin Cleveland NP Unavailable [phone] Geoffrey Parekh MD Primary Care Provider María vailable Encounter Details Date Type Department Care Team Description 01/10/2023 SCAN Medical Records [address] [place] [address] Abstract, Provider Social History Tobacco Use Types [...] Name Priority Date/Time Associated Diagnosis Comments OUTSIDE PFT Routine 01/10/2023 documented in this encounter Results * OUTSIDE PFT (01/10/2023) Provider Default PULMONOLOGY documented in this encounter Visit Diagnoses Not on filedocumented in this encounter Care Teams Creamery Worker Relationship Specialty Start Date End Date Adriana Sewell MD [address] [place] [address] PCP - General Internal Medicine 09/24/20 03/15/23 Geoffrey Parekh MD [address] [place] [address] PCP - General Family Practice 03/16/23 Fabio Forman MD Specialist Cardiology 06/04/20 Jeremias Yu NP [address] [place] [address] 80843 Nurse Practitioner Cardiology 12/15/20 Jocelin Cleveland NP [address] [place] [address] Cardiology 11/05/22 documented as of this encounter
--- OUTSIDE RECORDS SUMMARY | 2025-03-19 15:09 | XMS_ITS | Encounter Summary ---
Author Organization [facility] Address [address] [place] [address] Care Team Providers Care Ems Instructor Name Role Phone Doreen Workman DO Primary Care Pro vider Unavailable Fabio Forman MD Unavailable Adriana Sewell MD Primary Care Provider Jeremias Yu FLOUR MIXER Unavailable [phone] Jocelin Cleveland NP Unavailable Geoffrey Parkeh MD Primary Care Provider María vailable Encounter Details Date Type Department Care Team Description 09/05/2020 Business Doc Medical Records [address] [place] [address] Abstract, Provider Social History Tobacco Use Types [...] on filedocumented in this encounter Care Teams Ems Instructor Relationship Specialty Start Date End Date Doreen Workman DO PCP - General Internal Medicine 07/04/14 09/23/20 Adriana Sewell MD [address] [place] [address] PCP - General Internal Medicine 09/24/20 03/15/23 Geoffrey Parekh MD [address] [place] [address]955 PCP - General Family Practice 03/16/23 Fabio Forman MD Specialist Cardiology 06/04/20 Jeremias Yu NP [address] [place] [address] [phone] Nurse Practitioner Cardiology 12/15/20 Jocelin Cleveland NP [address] [place] [address] Cardiology 11/05/22 documented as of this encounter
--- OUTSIDE RECORDS SUMMARY | 2025-03-19 15:09 | XMS_ITS | Encounter Summary ---
Author Organization [facility] Address [address] [place] [address] Care Team Providers Care Boat Laborer Name Role Phone Doreen Workman DO Primary Care Pro vider Unavailable Fabio Forman MD Unavailable Adriana Sewell MD Primary Care Provider Jeremias Yu OPTOMETRIC TECH Unavailable [phone] Jocelin Cleveland NP Unavailable Geoffrey Parekh MD Primary Care Provider María vailable Reason for Referral * EXTERNAL (Routine) - Authorized/Booked Specialty Diagnoses / Procedures Referred By Contbiju t Referred To Contact Home Health Care / Home care Procedures REFERRAL TO HOME CARE Vivian Chiu PA-C [address] [place] [address] External Home Care Referral ID Status Reason Start Date Expiration Date V isits Requested Visits Authorized SEE REVIEW 09/01/16 Authorized/ Booked 09/01/2016 1 1 Encounter Details Date Type Department Care Team Description 09/01/2016 Pt. Non Urgent Medic al Question Adult Medicine [address] [phone] Vivian Chiu PA-C Social History Tobacco Use Types Packs/Day [...] as of this encounter Progress Notes * Maribell Kim M.A. - 09/01/2016 2:45 PM EDTFrom: Chasity Varghese To: Vivian Chiu PA-C Sent: 09/01/2016 2:06 PM EDT Subject: Chasity Varghese I'm writing on behalf of my mother Chasity Varghese. This is her son Hernando Varghese. I'm her health care proxy and also her Power of contract attorney. Today she was seen for a follow up appt. She had asked for a referral for home care physical therapy. She was told by the PA that she was not eligible for home care therapy. Currently my mother is not driving and has had decreased mobility in her home due to her declining health. She is having difficulty with simple ADL tasks and is losing mobility and her independence in her home. She has no means to go to out patient therapy. Could you please put in a referral for therapy to help increase her mobility in her home and also increase in endurance to keep her independent and in her home. If you have any question please contact me at [phone] or my mother at her home. Joshua Varghese documented in this encounter Plan of Treatment Not on file documented as of this encounter Visit Diagnoses Not on filedocumented in this encounter Care Teams Boat Laborer Relationship Specialty Start Date End Date Doreen Workman DO PCP - General Internal Medicine 07/04/14 09/23/20 Adriana Sewell MD [address] [place] [address] 19078 PCP - General Internal Medicine 09/24/20 03/15/23 Geoffrey Parekh MD [address] [place] [address] 13535 PCP - General Family Practice 03/16/23 Fabio Forman MD Specialist Cardiology 06/04/20 Jeremias Yu NP [address] [place] [address] [phone] Nurse Practitioner Cardiology 12/15/20 Jocelin Cleveland, HANNAH [address] [place] [address] Cardiology 11/05/22 documented as of this encounter
--- OUTSIDE RECORDS SUMMARY | 2025-03-19 15:09 | XMS_ITS | Encounter Summary ---
Author Organization [facility] Address [address] [place] [address] Care Team Providers Care Kiln Setter Name Role Phone Fabio Forman MD Unavailable [phone] Adriana Sewell MD Primary Care Provider [phone] Jeremias Yu NP Unavailable [phone] Jocelin Cleveland NP Unavailable Geoffrey Parekh MD Primary Care Provider María vailable Encounter Details Date Type Department Care Team Description 01/11/2023 Auto Service Station Attendant Report Medical Records [address] [place] [address] Caregivers, [facility] [address] [facility], [address] [place] [address] Social History Tobacco Use Types Packs/Day Years [...] on filedocumented in this encounter Care Teams Kiln Setter Relationship Specialty Start Date End Date Adriana Sewell MD [address] [place] [address] 9[address]65 PCP - General Internal Medicine 09/24/20 03/15/23 Geoffrey Parekh MD [address] [address] PCP - General Family Practice 03/16/23 Fabio Forman MD Specialist Cardiology 06/04/20 Jeremias Yu NP [address] [place] [place] [address] 45540 Nurse Practitioner Cardiology 12/15/20 Jocelin Cleveland NP [address] [place] [address] [phone] Cardiology 11/05/22 documented as of this encounter
--- OUTSIDE RECORDS SUMMARY | 2025-03-19 15:09 | XMS_ITS | Encounter Summary ---
Author Organization [facility] Address [address] [place] [address] Care Team Providers Care Furnace Liner Name Role Phone Doreen Workman DO Primary Care Pro vider Unavailable Fabio Forman MD Unavailable Adriana Sewell MD Primary Care Provider [phone] Jeremias Yu NP Unavailable Jocelin Cleveland NP Unavailable Geoffrey Parekh MD Primary Care Provider María vailable Encounter Details Date Type Department Care Team Description 04/03/2019 Nurse Companion Report Medical Records 4 [place] [address] Jeremias Yu, HANNAH [address] [place], [place] [phone] Social History Tobacco Use Types Packs/Day Years [...] on filedocumented in this encounter Care Teams Furnace Liner Relationship Specialty Start Date End Date Doreen Workman DO PCP - General Internal Medicine 07/04/14 09/23/20 Adriana Sewell MD [address] [place] [address] 61793 PCP - General Internal Medicine 09/24/20 03/15/23 Geoffrey Parekh MD [address] [place] [address] 9[address]87 PCP - General Family Practice 03/16/23 Fabio Forman MD Specialist Cardiology 06/04/20 Jeremias Yu NP [address] [place] [address] 42741 Nurse Practitioner Cardiology 12/15/20 Jocelin Cleveland NP [address] [place] [address] Cardiology 11/05/22 documented as of this encounter
--- OUTSIDE RECORDS SUMMARY | 2025-03-19 15:09 | XMS_ITS | Encounter Summary ---
Author Organization [facility] Address [address] [place] [address] Care Team Providers Care Orange Picker Machine Operator Name Role Phone Doreen Workman DO Primary Care Pro vider Unavailable Fabio Forman MD Unavailable [phone] Adriana Sewell MD Primary Care Provider [phone] Jeremias Yu BINDERY MACHINE SETTER/SET UP OPERATOR Unavailable Jocelin Cleveland NP Unavailable Geoffrey Parekh MD Primary Care Provider María vailable Encounter Details Date Type Department Care Team Description 01/29/2019 Supervisor Shearing Report Medical Records [address] [place] [address] Thomas Crockett MD Social History Tobacco Use Types Packs/Day [...] on filedocumented in this encounter Care Teams Orange Picker Machine Operator Relationship Specialty Start Date End Date Doreen Workman DO PCP - General Internal Medicine 07/04/14 09/23/20 Adriana Sewell MD [address] [place] [address] 40182 PCP - General Internal Medicine 09/24/20 03/15/23 Geoffrey Parekh MD [address] [place] [address] 35280 PCP - General Family Practice 03/16/23 Fabio Forman MD Specialist Cardiology 06/04/20 Jeremias Yu NP [address] [place] [address] 63901 Nurse Practitioner Cardiology 12/15/20 Jocelin Cleveland NP [address] [place] [address] Cardiology 11/05/22 documented as of this encounter
--- OUTSIDE RECORDS SUMMARY | 2025-03-19 15:09 | XMS_ITS | Encounter Summary ---
Author Organization [facility] Address [address] [place] [address] Care Team Providers Care Metal Refiner Name Role Phone Doreen Workman DO Primary Care Pro vider Unavailable Fabio Forman MD Unavailable Adriana Sewell MD Primary Care Provider Jeremias Yu SOLDERING MACHINE OPERATOR HELPER Unavailable Jocelin Cleveland NP Unavailable Geoffrey Parekh MD Primary Care Provider María vailable Encounter Details Date Type Department Care Team Description 01/02/2019 Bridge Manager Report Medical Records [address] [place] [address] Clark Rahman PA-C Social History Tobacco Use Types Packs/Day [...] on filedocumented in this encounter Care Teams Metal Refiner Relationship Specialty Start Date End Date Doreen Workman DO PCP - General Internal Medicine 07/04/14 09/23/20 Adriana Sewell MD [address] [place] [address] 13817 PCP - General Internal Medicine 09/24/20 03/15/23 Geoffrey Parekh MD [address] [place] [address]228 PCP - General Family Practice 03/16/23 Fabio Forman MD Specialist Cardiology 06/04/20 Jeremias Yu NP [address] [place] [address] 21877 Nurse Practitioner Cardiology 12/15/20 Jocelin Cleveland NP [address] [place] [address]251 Cardiology 11/05/22 documented as of this encounter
--- OUTSIDE RECORDS SUMMARY | 2025-03-19 15:09 | XMS_ITS | Encounter Summary ---
Author Organization [facility] Address [address] [place] [address] Care Team Providers Care Automatic Oven Operator Name Role Phone Fabio Forman MD Unavailable Adriana Sewell MD Primary Care Provider [phone] Jeremias Yu NP Unavailable [phone] Jocelin Cleveland NP Unavailable [phone] Geoffrey Parekh MD Primary Care Provider María vailable Encounter Details Date Type Department Care Team Description 01/13/2023 SCAN Medical Records [address] [place] [address] Thony Lancaster MD [address] [place] [address] Social History Tobacco Use Types Packs/Day Years [...] Date/Time Associated Diagnosis Comments OUTSIDE PFT Routine 01/13/2023 documented in this encounter Results * OUTSIDE PFT (01/13/2023) Provider Abstract PULMONOLOGY documented in this encounter Visit Diagnoses Not on filedocumented in this encounter Care Teams Automatic Oven Operator Relationship Specialty Start Date End Date Adriana Sewell MD [address] [place] [address] PCP - General Internal Medicine 09/24/20 03/15/23 Geoffrey Parekh MD [address] [place] [address]722 PCP - General Family Practice 03/16/23 Fabio Forman MD Specialist Cardiology 06/04/20 Jeremias Yu NP [address] [place] [address] 16366 Nurse Practitioner Cardiology 12/15/20 Jocelin Cleveland NP [address] [place] [address] Cardiology 11/05/22 documented as of this encounter
--- OUTSIDE RECORDS SUMMARY | 2025-03-19 15:09 | XMS_ITS | Encounter Summary ---
Author [facility] Address [address] [place] [address] Care Team Providers Care Oracle Programmer Analyst Name Role Phone Doreen Workman DO Primary Care Pro vider Unavailable Fabio Forman MD Unavailable [phone] Adriana Sewell MD Primary Care Provider Jeremias Yu BIBLE TEACHER Unavailable Jocelin Cleveland NP Unavailable Geoffrey Parekh MD Primary Care Provider María vailable Encounter Details Date Type Department Care Team Description 09/06/2016 Industrial X Ray Operator Report Medical Records [address] [place] [address] Dominique Collier MD 300 [facility] 154 [place] [address] Social History Tobacco Use Types Packs/Day Years [...] on filedocumented in this encounter Care Teams Oracle Programmer Analyst Relationship Specialty Start Date End Date Doreen Workman DO PCP - General Internal Medicine 07/04/14 09/23/20 Adriana Sewell MD [address] [place] [address]659 PCP - General Internal Medicine 09/24/20 03/15/23 Geoffrey Parekh MD [address] [place] [address] PCP - General Family Practice 03/16/23 Fabio Forman MD Specialist Cardiology 06/04/20 Jeremias Yu NP [address] [place] [address] 29084 Nurse Practitioner Cardiology 12/15/20 Jocelin Cleveland NP [address] [place] [address] Cardiology 11/05/22 documented as of this encounter
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
--- OUTSIDE RECORDS SUMMARY | 2025-03-19 15:10 | XMS_ITS | Encounter Summary ---
Author Organization [facility] Address [address] [place] [address] Care Team Providers Care Ham Marker Name Role Phone Fabio Forman MD Unavailable Adriana Sewell MD Primary Care Provider [phone] Jeremias Yu NP Unavailable [phone] Jocelin Cleveland NP Unavailable [phone] Geoffrey Parekh MD Primary Care Provider María vailable Encounter Details Date Type Department Care Team Description 06/24/2021 Garment Cutter Report Medical Records [address] [place] [address] Lorie Vicente NP Social History Tobacco Use Types Packs/Day Years [...] have Coronavirus / COVID-19? No / Unsure 06/09/2021 10:29 AM EST documented as of this encounter Plan of Treatment Not on file documented as of this encounter Visit Diagnoses Not on filedocumented in this encounter Care Teams Ham Marker Relationship Specialty Start Date End Date Adriana Sewell MD [address] [place] [address] PCP - General Internal Medicine 09/24/20 03/15/23 Geoffrey Parekh MD [address] [facility] [address] [facility] [address] [place] [address] PCP - General Family Practice 03/16/23 Fabio Forman MD Specialist Cardiology 06/04/20 Jeremias Yu NP [address] [place] [address] Nurse Practitioner Cardiology 12/15/20 Jocelin Cleveland NP [address] [place] [address] [address] Cardiology 11/05/22 documented as of this encounter
--- OUTSIDE RECORDS SUMMARY | 2025-03-19 15:10 | XMS_ITS | Encounter Summary ---
Author Organization [facility] Address [address] [place] [address] Care Team Providers Care Candles Pourer Name Role Phone Doreen Workman DO Primary Care Pro vider Unavailable Fabio Forman MD Unavailable Adriana Sewell MD Primary Care Provider Jeremias Yu UNDERWRITING SERVICE REPRESENTATIVE Unavailable [phone] Jocelin Cleveland NP Unavailable Geoffrey Parekh MD Primary Care Provider María vailable Encounter Details Date Type Department Care Team Description 08/24/2016 Release of Information Medical Records [address] [place] [address] Abstract, Provider Social History Tobacco Use Types [...] on filedocumented in this encounter Care Teams Candles Pourer Relationship Specialty Start Date End Date Doreen Workman DO PCP - General Internal Medicine 07/04/14 09/23/20 Adriana Sewell MD [address] [place] [address] PCP - General Internal Medicine 09/24/20 03/15/23 Geoffrey Parekh MD [address] [place] [address] [address] PCP - General Family Practice 03/16/23 Fabio Forman MD Specialist Cardiology 06/04/20 Jeremias Yu NP [address] [place] [address] Nurse Practitioner Cardiology 12/15/20 Jocelin Cleveland NP [address] [place] [address] [address] Cardiology 11/05/22 documented as of this encounter
--- OUTSIDE RECORDS SUMMARY | 2025-03-19 15:10 | XMS_ITS | Encounter Summary ---
Author Organization [facility] Address [address] [place] [address] Care Team Providers Care Football Scout Name Role Phone Fabio Forman MD Unavailable [phone] Adriana Sewell MD Primary Care Provider [phone] Jeremias Yu NP Unavailable [phone] Jocelin Cleveland NP Unavailable [phone] Geoffrey Parekh MD Primary Care Provider María vailable Encounter Details Date Type Department Care Team Description 07/06/2021 SCAN Medical Records [address] [place] [address] Abstract, Provider Social History Tobacco Use Types [...] Date/Time Associated Diagnosis Comments OUTSIDE LAB Routine 07/06/2021 documented in this encounter Results * OUTSIDE LAB (07/06/2021) Provider Abstract LAB documented in this encounter Visit Diagnoses Not on filedocumented in this encounter Care Teams Football Scout Relationship Specialty Start Date End Date Adriana Sewell MD [address] [place] [address] PCP - General Internal Medicine 09/24/20 03/15/23 Geoffrey Parekh MD [address] [place] [address] PCP - General Family Practice 03/16/23 Fabio Forman MD Specialist Cardiology 06/04/20 Jeremias Yu NP [address] [place] [address] Nurse Practitioner Cardiology 12/15/20 Jocelin Cleveland NP [address] [place] [address] Cardiology 11/05/22 documented as of this encounter
--- OUTSIDE RECORDS SUMMARY | 2025-03-19 15:10 | XMS_ITS | Encounter Summary ---
Author Organization [facility] Address [address] [place] [address] Care Team Providers Care Aging Department Supervisor Name Role Phone Doreen Workman DO Primary Care Pro vider Unavailable Fabio Forman MD Unavailable [phone] Adriana Sewell MD Primary Care Provider Jeremias Yu EMPLOYEE RELATIONS REPRESENTATIVE Unavailable Jocelin Cleveland NP Unavailable [phone] Geoffrey Parekh MD Primary Care Provider María vailable Encounter Details Date Type Department Care Team Description 09/28/2016 Home Health Certification Medical Records [address] [place] [address] Social History Tobacco Use Types Packs/Day Years [...] on filedocumented in this encounter Care Teams Aging Department Supervisor Relationship Specialty Start Date End Date Doreen Workman DO PCP - General Internal Medicine 07/04/14 09/23/20 Adriana Sewell MD [address] [place] [address] [id number] PCP - General Internal Medicine 09/24/20 03/15/23 Geoffrey Parekh MD [address] [place] [address] PCP - General Family Practice 03/16/23 Fabio Forman MD Specialist Cardiology 06/04/20 Jeremias Yu NP [address] [place] [address] Nurse Practitioner Cardiology 12/15/20 Jocelin Cleveland NP [address] [place] [address] Cardiology 11/05/22 documented as of this encounter
--- OUTSIDE RECORDS SUMMARY | 2025-03-19 15:10 | XMS_ITS | Encounter Summary ---
Author Organization [facility] Address [address] [place] [address] Care Team Providers Care Solar Panel Installation Supervisor Name Role Phone Doreen Workman DO Primary Care Pro vider Unavailable Fabio Forman MD Unavailable [phone] Adriana Sewell MD Primary Care Provider Jeremias Yu TAPE STRINGER Unavailable Jocelin Cleveland NP Unavailable Geoffrey Parekh MD Primary Care Provider María vailable Reason for Visit * Reason Onset Date Comments APPOINTMENT 05/03/2019 Dr. Culver Encounter Details Date Type Department Care Team Description 05/03/2019 Telephone Pulmonology - [place] [address] [facility] [address] [place] [address] Montserrat Rodriguez BILLING AND QUALITY TECHNICIAN [address] [place] [address] APPOINTMENT (Dr. Culver) Social History Tobacco Use Types Packs/Day Years [...] encounter Miscellaneous Notes * Telephone Encounter - Joseline Morrell - 05/03/2019 9:30 AM EST Patient calling FYI for Phan Thomas her next scheduled appt.with (PCP) Dr. Culver 06-18-2019. documented in this encounter Plan of Treatment Not on file documented as of this encounter Visit Diagnoses Not on filedocumented in this encounter Care Teams Solar Panel Installation Supervisor Relationship Specialty Start Date End Date Doreen Workman DO PCP - General Internal Medicine 07/04/14 09/23/20 Adriana Sewell MD [address] [place] [address] PCP - General Internal Medicine 09/24/20 03/15/23 Geoffrey Parekh MD [address] [place] [address] PCP - General Family Practice 03/16/23 Fabio Forman MD Specialist Cardiology 06/04/20 Jeremias Yu NP [address] [place] [address] Nurse Practitioner Cardiology 12/15/20 Jocelin Cleveland NP [address] [place] [address] Cardiology 11/05/22 documented as of this encounter
--- OUTSIDE RECORDS SUMMARY | 2025-03-19 15:10 | XMS_ITS | Encounter Summary ---
Author Organization [facility] Address [address] [place] [address] Care Team Providers Care Vehicle Modification Technician Name Role Phone Doreen Workman DO Primary Care Pro vider Unavailable Fabio Forman MD Unavailable Adriana Sewell MD Primary Care Provider Jeremias Yu BUILDING APPRAISER Unavailable [phone] Jocelin Cleveland NP Unavailable Geoffrey Parekh MD Primary Care Provider María vailable Encounter Details Date Type Department Care Team Description 08/24/2018 Patching Machine Operator Report Medical Records [address] [place] [address] Evan Esquivel MD, PHD Social History Tobacco Use Types Packs/Day Years [...] filedocumented in this encounter Care Teams Vehicle Modification Technician Relationship Specialty Start Date End Date Doreen Workman DO PCP - General Internal Medicine 07/04/14 09/23/20 Adriana Sewell MD [address] [place] [address] PCP - General Internal Medicine 09/24/20 03/15/23 Geoffrey Parekh MD [address] [facility] [address] [facility] [address] [place] [address] PCP - General Family Practice 03/16/23 Fabio Forman MD Specialist Cardiology 06/04/20 Jeremias Yu NP [address] [place] [address] Nurse Practitioner Cardiology 12/15/20 Jocelin Cleveland NP [address] [place] [address] [address] Cardiology 11/05/22 documented as of this encounter
--- OUTSIDE RECORDS SUMMARY | 2025-03-19 15:10 | XMS_ITS | Encounter Summary ---
Author Organization [facility] Address [address] [place] [address] Care Team Providers Care School Guard Name Role Phone Doreen Workman DO Primary Care Pro vider Unavailable Fabio Forman MD Unavailable Adriana Sewell MD Primary Care Provider Jeremias Yu NP Unavailable [phone] Jocelin Cleveland NP Unavailable [phone] Geoffrey Parekh MD Primary Care Provider María vailable Reason for Visit * Reason Onset Date Comments REFERRAL 06/08/2016 Encounter Details Date Type Department Care Team Description 06/08/2016 Telephone Physiatry - [place] [address] [place] [address] [phone] Shauna Yang MD [address] [place] [address] [place] [phone] REFERRAL Social History Tobacco Use Types Packs/Day [...] Miscellaneous Notes * Telephone Encounter - Ainsley Dutta - 06/08/2016 1:08 PM EST Please close this encounter documented in this encounter Plan of Treatment Not on file documented as of this encounter Visit Diagnoses Not on filedocumented in this encounter Care Teams School Guard Relationship Specialty Start Date End Date Doreen Workman DO PCP - General Internal Medicine 07/04/14 09/23/20 Adriana Sewell MD [address] [place] [address] PCP - General Internal Medicine 09/24/20 03/15/23 Geoffrey Parekh MD [address] [place] [address] PCP - General Family Practice 03/16/23 Fabio Forman MD Specialist Cardiology 06/04/20 Jeremias Yu NP [address] [place] [address] Nurse Practitioner Cardiology 12/15/20 Jocelin Cleveland NP [address] [place] [address] Cardiology 11/05/22 documented as of this encounter
--- OUTSIDE RECORDS SUMMARY | 2025-03-19 15:10 | XMS_ITS | Encounter Summary ---
Author Organization [facility] Address [address] [place] [address] Care Team Providers Care Casing Running Machine Tender Name Role Phone Doreen Workman DO Primary Care Pro vider Unavailable Fabio Forman MD Unavailable [phone] Adriana Sewell MD Primary Care Provider [phone] Jeremias Yu INFORMATION WRITER Unavailable [phone] Jocelin Cleveland NP Unavailable Geoffrey Parekh MD Primary Care Provider María vailable Reason for Referral * Non ALLAN (Routine) - Authorized/Booked Specialty Diagnoses / Procedures Referred By Contbiju greenfield Referred To Contact Physiatry Procedures REFERRAL TO PHYSIATRY Doreen Workman DO [address] [place], [place] [id number] [place] [address]/[address] [address] Referral ID Status Reason Start Date Expiration Date V isits Requested Visits Authorized [id number] Authorized/B ooked 01/12/2016 01/11/2017 1 1 Encounter Details Date Type Department Care Team Description 01/12/2016 Orders Only Adult Medicine [address] [address] Doreen Workman DO Social History Tobacco Use [...] on filedocumented in this encounter Care Teams Casing Running Machine Tender Relationship Specialty Start Date End Date Doreen Workman DO PCP - General Internal Medicine 07/04/14 09/23/20 Adriana Sewell MD [address] [place] [address] PCP - General Internal Medicine 09/24/20 03/15/23 Geoffrey Parekh MD [address] [place] [address] PCP - General Family Practice 03/16/23 Fabio Forman MD Specialist Cardiology 06/04/20 Jeremias Yu NP [address] [place] [address] Nurse Practitioner Cardiology 12/15/20 Jocelin Cleveland NP [address] [place] [address] [phone] Cardiology 11/05/22 documented as of this encounter
--- OUTSIDE RECORDS SUMMARY | 2025-03-19 15:10 | XMS_ITS | Encounter Summary ---
Author Organization [facility] Address [address] [place] [address] Care Team Providers Care Document Processing Specialist Name Role Phone Doreen Workman DO Primary Care Pro vider Unavailable Fabio Forman MD Unavailable Adriana Sewell MD Primary Care Provider [phone] Jeremias Yu SYSTEMS INTEGRATION ADVISOR Unavailable Jocelin Cleveland NP Unavailable Geoffrey Parekh MD Primary Care Provider María vailable Encounter Details Date Type Department Care Team Description 11/11/2016 Hospital Medical Records [address] [place] [address] Dominique Collier MD [address] [facility] [address] [place] [address] Social History Tobacco Use Types Packs/Day Years [...] on filedocumented in this encounter Care Teams Document Processing Specialist Relationship Specialty Start Date End Date Doreen Workman DO PCP - General Internal Medicine 07/04/14 09/23/20 Adriana Sewell MD [address] [place] [address] PCP - General Internal Medicine 09/24/20 03/15/23 Geoffrey Parekh MD [address] [place] [address] PCP - General Family Practice 03/16/23 Fabio Forman MD Specialist Cardiology 06/04/20 Jeremias Yu NP [address] [place] [address] Nurse Practitioner Cardiology 12/15/20 Jocelin Cleveland NP [address] [place] [address] Cardiology 11/05/22 documented as of this encounter
--- OUTSIDE RECORDS SUMMARY | 2025-03-19 15:10 | XMS_ITS | Encounter Summary ---
Author Organization [facility] Address [address] [place] [address] Care Team Providers Care Fraud Investigator Name Role Phone Doreen Workman DO Primary Care Pro vider Unavailable Fabio Forman MD Unavailable [phone] Adriana Sewell MD Primary Care Provider Jeremias Yu NP Unavailable Jocelin Cleveland NP Unavailable [phone] Geoffrey Parekh MD Primary Care Provider María vailable Reason for Referral * Non ALLAN (Routine) - Authorized/Booked Specialty Diagnoses / Procedures Referred By Joon greenfield Referred To Contact Gastroenterology Procedures REFERRAL TO GASTROENTEROLOGY Doreen Workman DO [address] [place] [address] Gastro/[address] [address] Referral ID Status Reason Start Date Expiration Date V isits Requested Visits Authorized [id number] Authorized/ Booked 08/18/2016 08/18/2017 1 1 Encounter Details Date Type Department Care Team Description 08/18/2016 Orders Only Adult Medicine [place] [facility] [place] [address] [place] [address] Doreen Workman DO Social History Tobacco Use [...] on filedocumented in this encounter Care Teams Fraud Investigator Relationship Specialty Start Date End Date Doreen Workman DO PCP - General Internal Medicine 07/04/14 09/23/20 Adriana Sewell MD [address] [place] [address] PCP - General Internal Medicine 09/24/20 03/15/23 Geoffrey Parekh MD [address] [place] [address] PCP - General Family Practice 03/16/23 Fabio Forman MD Specialist Cardiology 06/04/20 Jeremias Yu NP [address] [place] [address] Nurse Practitioner Cardiology 12/15/20 Jocelin Cleveland NP [address] [place] [address] Cardiology 11/05/22 documented as of this encounter
--- OUTSIDE RECORDS SUMMARY | 2025-03-19 15:10 | XMS_ITS | Encounter Summary ---
Author Organization [facility] Address [address] [place] [address] Care Team Providers Care Reservoir Engineering Advisor Name Role Phone Doreen Workman DO Primary Care Pro vider Unavailable Fabio Forman MD Unavailable Adriana Sewell MD Primary Care Provider Jeremias Yu BIOFUELS OPERATIONS MANAGER Unavailable [phone] Jocelin Cleveland NP Unavailable Geoffrey Parekh MD Primary Care Provider María vailable Encounter Details Date Type Department Care Team Description 11/22/2016 Incoming Correspondence Medical Records [address] [place] [address] [facility] Social History Tobacco Use Types Packs/Day [...] on filedocumented in this encounter Care Teams Reservoir Engineering Advisor Relationship Specialty Start Date End Date Doreen Workman DO PCP - General Internal Medicine 07/04/14 09/23/20 Adriana Sewell MD [address] [place] [address] [phone] PCP - General Internal Medicine 09/24/20 03/15/23 Geoffrey Parekh MD [address] [place] [address] PCP - General Family Practice 03/16/23 Fabio Forman MD Specialist Cardiology 06/04/20 Jeremias Yu NP [address] [place] [address] Nurse Practitioner Cardiology 12/15/20 Jocelin Cleveland NP [address] [place] [address] Cardiology 11/05/22 documented as of this encounter
--- OUTSIDE RECORDS SUMMARY | 2025-03-19 15:10 | XMS_ITS | Encounter Summary ---
Author Organization [facility] Address [address] [place] [address] Care Team Providers Care Cutch Cleaner Name Role Phone Fabio Forman MD Unavailable Adriana Sewell MD Primary Care Provider Jeremias Yu CONSTRUCTION EQUIPMENT OPERATOR Unavailable Jocelin Cleveland NP Unavailable Geoffrey Parekh MD Primary Care Provider María vailable Reason for Visit * Reason Onset Date Comments TEST RESULTS 05/07/2021 Encounter Details Date Type Department Care Team Description 05/07/2021 Telephone Adult Medicine [facility] [address] [place], [place] [phone] Adriana Sewell MD [address] [place] [address] [phone] TEST RESULTS Social History Tobacco Use Types Packs/Day Years [...] have Coronavirus / COVID-19? No / Unsure 05/04/2021 1:44 PM EST documented as of this encounter Miscellaneous Notes * Telephone Encounter - Hernando Martines - 05/07/2021 1:39 PM EST Patient called asking about results , informed her a Hiring[employer]ing message was sent , pt states she doesn't have access to my chart , then she remembered her son does so she will check with him , patient informed of prescription at pharmacy and to not over exert herself with physical activies while on the medication , due to patient already having medication from pharmacy and no warning being given documented in this encounter Plan of Treatment Not on file documented as of this encounter Visit Diagnoses Not on filedocumented in this encounter Care Teams Cutch Cleaner Relationship Specialty Start Date End Date Adriana Sewell MD [address] [place] [address] PCP - General Internal Medicine 09/24/20 03/15/23 Geoffrey Parekh MD [address] [place] [address] PCP - General Family Practice 03/16/23 Fabio Forman MD Specialist Cardiology 06/04/20 Jeremias Yu NP [address] [place] [address] Nurse Practitioner Cardiology 12/15/20 Jocelin Cleveland NP [address] [place] [address] Cardiology 11/05/22 documented as of this encounter
--- OUTSIDE RECORDS SUMMARY | 2025-03-19 15:10 | XMS_ITS | Encounter Summary ---
Author Organization [facility] Address [address] [place] [address] Care Team Providers Care Coin Machine Service Repairer Name Role Phone Doreen Workman DO Primary Care Pro vider Unavailable Fabio Forman MD Unavailable Adriana Sewell MD Primary Care Provider Jeremias Yu BRASS CUTTER Unavailable Jocelin Cleveland NP Unavailable Geoffrey Parekh MD Primary Care Provider María vailable Encounter Details Date Type Department Care Team Description 12/15/2018 Orders Only Gastroenterology - [place] [address] [place] [facility] [address] [place] [phone] Troy Garces MD [address] [facility] [address] [place] [address] Social History Tobacco Use Types Packs/Day Years [...] on filedocumented in this encounter Care Teams Coin Machine Service Repairer Relationship Specialty Start Date End Date Doreen Workman DO PCP - General Internal Medicine 07/04/14 09/23/20 Adriana Sewell MD [address] [place] [address] PCP - General Internal Medicine 09/24/20 03/15/23 Geoffrey Parekh MD [address] [place] [address] PCP - General Family Practice 03/16/23 Fabio Forman MD Specialist Cardiology 06/04/20 Jeremias Yu NP [address] [place] [address] Nurse Practitioner Cardiology 12/15/20 Jocelin Cleveland NP [address] [place] [address] [phone] Cardiology 11/05/22 documented as of this encounter
--- OUTSIDE RECORDS SUMMARY | 2025-03-19 15:10 | XMS_ITS | Encounter Summary ---
Author Organization [facility] Address [address] [place] [address] Care Team Providers Care Decating Machine Operator Name Role Phone Doreen Workman DO Primary Care Pro vider Unavailable Fabio Forman MD Unavailable Adriana Sewell MD Primary Care Provider Jeremias Yu NP Unavailable Jocelin Cleveland NP Unavailable Geoffrey Parekh MD Primary Care Provider María vailable Encounter Details Date Type Department Care Team Description 12/04/2018 Newborn Hearing Screener Report Medical Records [address] [place] [address] Jeremias Yu, HANNAH [address] [place], [place] [phone] Social History Tobacco Use Types Packs/Day Years [...] on filedocumented in this encounter Care Teams Decating Machine Operator Relationship Specialty Start Date End Date Doreen Workman DO PCP - General Internal Medicine 07/04/14 09/23/20 Adriana Sewell MD [address] [place] [address] PCP - General Internal Medicine 09/24/20 03/15/23 Geoffrey Parekh MD [address] [place] [address] PCP - General Family Practice 03/16/23 Fabio Forman MD Specialist Cardiology 06/04/20 Jeremias Yu NP [address] [place] [address] Nurse Practitioner Cardiology 12/15/20 Jocelin Cleveland NP [address] [place] [address] Cardiology 11/05/22 documented as of this encounter
--- OUTSIDE RECORDS SUMMARY | 2025-03-19 15:10 | XMS_ITS | Encounter Summary ---
Author Organization [facility] Address [address] [place] [address] Care Team Providers Care Rotary Cutter Name Role Phone Doreen Workman DO Primary Care Pro vider Unavailable Fabio Forman MD Unavailable Adriana Sewell MD Primary Care Provider Jeremias Yu BUNDLE COLLECTOR Unavailable [phone] Jocelin Cleveland NP Unavailable [phone] Geoffrey Parekh MD Primary Care Provider María vailable Encounter Details Date Type Department Care Team Description 12/21/2018 Hospital Medical Records [address] [place] [address] Abstract, Provider Social History Tobacco Use Types [...] on filedocumented in this encounter Care Teams Rotary Cutter Relationship Specialty Start Date End Date Doreen Workman DO PCP - General Internal Medicine 07/04/14 09/23/20 Adriana Sewell MD [address] [place], [place] [phone] PCP - General Internal Medicine 09/24/20 03/15/23 Geoffrey Parekh MD [address] [place] [address] PCP - General Family Practice 03/16/23 Fabio Forman MD Specialist Cardiology 06/04/20 Jeremias Yu NP [address] [place] [address] Nurse Practitioner Cardiology 12/15/20 Jocelin Cleveland NP [address] [place] [address] Cardiology 11/05/22 documented as of this encounter
--- OUTSIDE RECORDS SUMMARY | 2025-03-19 15:10 | XMS_ITS | Encounter Summary ---
[facility] Organization [facility] Address [address] [place] [address] Care Team Providers Care Nuclear Fuels Reclamation Engineer Name Role Phone Doreen Workman DO Primary Care Pro vider Unavailable Fabio Forman MD Unavailable [phone] Adriana Sewell MD Primary Care Provider [phone] Jeremias Yu NP Unavailable Jocelin Cleveland NP Unavailable [phone] Geoffrey Parekh MD Primary Care Provider María vailable Encounter Details Date Type Department Care Team Description 08/12/2016 Child Health Associate Report Medical Records [address] [place] [address] Jeremias Yu, HANNAH [address] [place], [place] [id number] Social History Tobacco Use Types Packs/Day Years [...] on filedocumented in this encounter Care Teams Nuclear Fuels Reclamation Engineer Relationship Specialty Start Date End Date Doreen Workman DO PCP - General Internal Medicine 07/04/14 09/23/20 Adriana Sewell MD [address] [place] [address] 24350 PCP - General Internal Medicine 09/24/20 03/15/23 Geoffrey Parekh MD [address] [place] [address] 14334 PCP - General Family Practice 03/16/23 Fabio Forman MD Specialist Cardiology 06/04/20 Jeremias Yu NP [address] [place] [address] Nurse Practitioner Cardiology 12/15/20 Jocelin Cleveland NP [address] [place] [address]70 Cardiology 11/05/22 documented as of this encounter
--- OUTSIDE RECORDS SUMMARY | 2025-03-19 15:10 | XMS_ITS | Encounter Summary ---
Author Organization [facility] Address [address] [place] [address] Care Team Providers Care Offender Employment Specialist Name Role Phone Doreen Workman DO Primary Care Pro vider Unavailable Fabio Forman MD Unavailable Adriana Sewell MD Primary Care Provider Jeremias Yu DOCK WORKER Unavailable [phone] Jocelin Cleveland NP Unavailable Geoffrey Parekh MD Primary Care Provider María vailable Reason for Visit * Reason Comments E-prescribe Rx Request Encounter Details Date Type Department Care Team Description 09/27/2018 Refill Adult Medicine [address] [id number] Doreen Workman DO E-prescribe Rx Request Social History Tobacco Use [...] Telephone Encounter - Ainsley Jensen M.A. - 09/27/2018 1:59 PM EDT Lab Results Component Value Date NA 141 09/18/2018 K 4.7 09/18/2018 CO2 28 09/18/2018 CL 108 09/18/2018 BUN 16 09/18/2018 CREAT 0.97 09/18/2018 GLU 90 09/18/2018 CA 9.1 09/18/2018 GFR 57 09/18/2018 Last ov with pcp 08/26/18 * Telephone Encounter - Jono Thomson - 09/27/2018 8:11 AM EDT Patient would like script to be: E-PRESCRIBED/FAXED TO PHARMACY WHEN WAS THE PATIENT'S LAST APPOINTMENT IN ADULT MEDICINE? 08/22/18 WHEN WAS THE LAST TIME THE PATIENT SAW THEIR PCP? Same as above Does patient have an upcoming appointment? Yes 12/22/18 (THE MEDICATION REQUESTED IS ON THE MED LIST ABOVE) All of the medications requested were on the CURRENT MEDS list Did you check the Pharmacy information above?: YES Patient wants: 90 -day supply Is this a mail order prescription request ? NO If the refill is from a FAXED refill request what is the RX # listed on the fax? N/A Patients current insurance carrier is: [place] / [place] / Product Type: MED[place]ARE [id number] documented in this encounter Plan of Treatment Not on file documented as of this encounter Visit Diagnoses Not on filedocumented in this encounter Care Teams Offender Employment Specialist Relationship Specialty Start Date End Date Doreen Workman DO PCP - General Internal Medicine 07/04/14 09/23/20 Adriana Sewell MD [address] [place] [address] PCP - General Internal Medicine 09/24/20 03/15/23 Geoffrey Parekh MD [address] [place] [address] PCP - General Family Practice 03/16/23 Fabio Forman MD Specialist Cardiology 06/04/20 Jeremias Yu NP [address] [place] [address] Nurse Practitioner Cardiology 12/15/20 Jocelin Cleveland NP [address] [place] [address] Cardiology 11/05/22 documented as of this encounter
--- OUTSIDE RECORDS SUMMARY | 2025-03-19 15:10 | XMS_ITS | Encounter Summary ---
Author Organization [facility] Address [address] [place] [address] Care Team Providers Care Insulation Packer Name Role Phone Doreen Workman DO Primary Care Pro vider Unavailable Fabio Forman MD Unavailable [phone] Adriana Sewell MD Primary Care Provider [phone] Jeremias Yu POWER BENDER OPERATOR Unavailable Jocelin Cleveland NP Unavailable Geoffrey Parekh MD Primary Care Provider María vailable Encounter Details Date Type Department Care Team Description 08/19/2016 Orders Only Oncology/Hematology - [address] [address] Beckie Fuentes MD Iron deficiency anemia due to chronic blood loss (Primary Dx) Social History Tobacco Use Types [...] documented as of this encounter Results * (ABNORMAL) CBC (AUTO DIFF PLATELET) (08/19/2016 10:25 AM EDT) WBC 5.6 4.8 - 10.8 x10-3 08/19/2016 11:09 AM EDT [facility] RBC 3.7(L) 3.8 - 4.8 x10-6 08/19/2016 11:09 AM EDT [facility] HGB 11.0(L) 11.5 - 16.0 g/dl 08/19/2016 11:09 AM EDT [facility] HCT 34.8(L) 35 - 47 % 08/19/2016 11:09 AM EDT [facility] MCV 94.6 79 - 98 fl 08/19/2016 11:09 AM EDT [facility] MCH 29.9 27 - 32 pg 08/19/2016 11:09 AM EDT [facility] MCHC 31.6(L) 32 - 37 g/dl 08/19/2016 11:09 AM EDT [facility] RDW 14.6 11 - 15 % 08/19/2016 11:09 AM EDT [facility] PLT COUNT 197 130 - 400 x10-3 08/19/2016 11:09 AM EDT [facility] MEAN PLATELET VOLUME 10.9 7 - 11 fl 08/19/2016 11:09 AM EDT [facility] NEUT % 57.9 41 - 85 % 08/19/2016 11:09 AM EDT [facility] LYMPH % 29.2 15 - 48 % 08/19/2016 11:09 AM EDT [facility] MONO % 7.3 0 - 12 % 08/19/2016 11:09 AM EDT [facility] EOS % 5.2(H) 0 - 5 % 08/19/2016 11:09 AM EDT [facility] BASO % 0.4 0 - 2 % 08/19/2016 11:09 AM EDT [facility] 08/19/2016 10:2 5 AM EDT 08/19/2016 10:25 AM EDT Beckie Fuentes MD LAB [facility] [address] [facility] documented in this encounter Visit Diagnoses Diagnosis Iron deficiency anemia due to chronic blood loss- Primary Iron deficiency anemia secondary to blood loss (chronic) documented in this encounter Care Teams Insulation Packer Relationship Specialty Start Date End Date Doreen Workman DO PCP - General Internal Medicine 07/04/14 09/23/20 Adriana Sewell MD [address] [place] [address] PCP - General Internal Medicine 09/24/20 03/15/23 Geoffrey Parekh MD [address] [place] [address] 2020[address] PCP - General Family Practice 03/16/23 Fabio Forman MD Specialist Cardiology 06/04/20 Jeremias Yu NP [address] [place] [address] [phone] Nurse Practitioner Cardiology 12/15/20 Jocelin Cleveland NP [address] [place] [address] Cardiology 11/05/22 documented as of this encounter
--- OUTSIDE RECORDS SUMMARY | 2025-03-19 15:10 | XMS_ITS | Encounter Summary ---
Author Organization [facility] Address [address] [place] [address] Care Team Providers Care Instructional Specialist Name Role Phone Doreen Workman DO Primary Care Pro vider Unavailable Fabio Forman MD Unavailable [phone] Adriana Sewell MD Primary Care Provider Jeremias Yu PARTS FINISHER Unavailable Jocelin Cleveland NP Unavailable Geoffrey Parekh MD Primary Care Provider María vailable Encounter Details Date Type Department Care Team Description 08/24/2016 [employer]rections Report Medical Records [address] [place] [address] Omer Sunshine MD Social History Tobacco Use [...] on filedocumented in this encounter Care Teams Instructional Specialist Relationship Specialty Start Date End Date Doreen Workman DO PCP - General Internal Medicine 07/04/14 09/23/20 Adriana Sewell MD [address] [place] [address] [phone] PCP - General Internal Medicine 09/24/20 03/15/23 Geoffrey Parekh MD [address] [place] [address] PCP - General Family Practice 03/16/23 Fabio Forman MD Specialist Cardiology 06/04/20 Jeremias Yu NP [address] [place] [address] Nurse Practitioner Cardiology 12/15/20 Jocelin Cleveland NP [address] [place] [address] Cardiology 11/05/22 documented as of this encounter
--- OUTSIDE RECORDS SUMMARY | 2025-03-19 15:10 | XMS_ITS | Encounter Summary ---
Author Organization [facility] Address [address] [place] [address] Care Team Providers Care Manager Highway Name Role Phone Fabio Forman MD Unavailable [phone] Adriana Sewell MD Primary Care Provider [phone] Jeremias Yu NP Unavailable Jocelin Cleveland NP Unavailable [phone] Geoffrey Parekh MD Primary Care Provider María vailable Encounter Details Date Type Department Care Team Description 05/09/2021 SCAN Medical Records [address] [place] [address] Brielle Bourne PA-C Social History Tobacco Use Types Packs/Day [...] have Coronavirus / COVID-19? No / Unsure 05/12/2021 10:53 AM EST documented as of this encounter Plan of Treatment Not on file documented as of this encounter Procedures Procedure Name Priority Date/Time Associated Diagnosis Comments OUTSIDE LAB Routine 05/09/2021 documented in this encounter Results * OUTSIDE LAB (05/09/2021) Provider Default LAB documented in this encounter Visit Diagnoses Not on filedocumented in this encounter Care Teams Manager Highway Relationship Specialty Start Date End Date Adriana Sewell MD [address] [place] [address] PCP - General Internal Medicine 09/24/20 03/15/23 Geoffrey Parekh MD [address] [place] [address] PCP - General Family Practice 03/16/23 Fabio Forman MD Specialist Cardiology 06/04/20 Jeremias Yu NP [address] [place] [address] Nurse Practitioner Cardiology 12/15/20 Jocelin Cleveland NP [address] [place] [address] Cardiology 11/05/22 documented as of this encounter
--- OUTSIDE RECORDS SUMMARY | 2025-03-19 15:10 | XMS_ITS | Encounter Summary ---
[facility] Address [address] [place] [address] Care Team Providers Care Last Code Striper Name Role Phone Doreen Workman DO Primary Care Pro vider Unavailable Fabio Forman MD Unavailable Adriana Sewell MD Primary Care Provider Jeremias Yu BOARD CERTIFIED ARTS THERAPIST Unavailable Jocelin Cleveland NP Unavailable Geoffrey Parekh MD Primary Care Provider María vailable Encounter Details Date Type Department Care Team Description 09/26/2018 [employer] Worker Report Medical Records [address] [place] [address] [facility] Social History Tobacco Use Types Packs/Day [...] on filedocumented in this encounter Care Teams Last Code Striper Relationship Specialty Start Date End Date Doreen Workman DO PCP - General Internal Medicine 07/04/14 09/23/20 Adriana Sewell MD [address] [place] [address] [phone] PCP - General Internal Medicine 09/24/20 03/15/23 Geoffrey Parekh MD [address] [place] [address] PCP - General Family Practice 03/16/23 Fabio Forman MD Specialist Cardiology 06/04/20 Jeremias Yu NP [address] [place] [address]77 Nurse Practitioner Cardiology 12/15/20 Jocelin Cleveland NP [address] [place] [address] Cardiology 11/05/22 documented as of this encounter
--- OUTSIDE RECORDS SUMMARY | 2025-03-19 15:11 | XMS_ITS | Encounter Summary ---
Author Organization [facility] Address [address] [place] [address] Care Team Providers Care Administrative Sales Assistant Name Role Phone Doreen Workman DO Primary Care Pro vider Unavailable Fabio Forman MD Unavailable Adriana Sewell MD Primary Care Provider [phone] Jeremias Yu STEM CRUSHER Unavailable Jocelin Cleveland NP Unavailable Geoffrey Parekh MD Primary Care Provider María vailable Encounter Details Date Type Department Care Team Description 01/26/2017 Orders Only Adult Medicine [address] [phone] Doreen Workman DO Vitamin D deficiency (Primary Dx) Social History Tobacco Use Types [...] documented as of this encounter Results * 25 HYDROXY INCLUDES FRACTIONS IF PERFORMED (01/28/2017 2:59 PM EDT) 25-HYDROXY VITAMIN D TOTAL 32 30 - 80 ng/ml 01/31/2017 1:35 PM EDT [facility] Comment: Vitamin D Reference Ranges Deficiency: <20 ng/mL Insufficiency: 20-29 ng/mL Optimal: 30-80 ng/mL High: >80 ng/mL 01/28/2017 2:59 PM EDT 01/28/2017 2:59 PM EDT Doreen Hightower DO LAB Performing Organization Address City/State/[facility] Co de Phone Number [address] documented in this encounter Visit Diagnoses Diagnosis Vitamin D deficiency- Primary Unspecified vitamin D deficiency documented in this encounter Care Teams Administrative Sales Assistant Relationship Specialty Start Date End Date Doreen Workman DO PCP - General Internal Medicine 07/04/14 09/23/20 Adriana Sewell MD [address] [place] [address] PCP - General Internal Medicine 09/24/20 03/15/23 Geoffrey Parekh MD [address] [place] [address]191 PCP - General Family Practice 03/16/23 Fabio Forman MD Specialist Cardiology 06/04/20 Jeremias Yu NP [address] [place] [address] Nurse Practitioner Cardiology 12/15/20 Jocelin Cleveland NP [address] [place] [address] Cardiology 11/05/22 documented as of this encounter
--- OUTSIDE RECORDS SUMMARY | 2025-03-19 15:11 | XMS_ITS | Encounter Summary ---
Author Organization [facility] Address [address] [place] [address] Care Team Providers Care Replenishment Analyst Name Role Phone Doreen Workman DO Primary Care Pro vider Unavailable Fabio Forman MD Unavailable [phone] Adriana Sewell MD Primary Care Provider [phone] Jeremias Yu NP Unavailable Jocelin Cleveland NP Unavailable Geoffrey Parekh MD Primary Care Provider María vailable Encounter Details Date Type Department Care Team Description 01/14/2017 Traffic Personnel Supervisor Report Medical Records [address] [place] [address] Jeremias Yu, HANNAH [address] [place], [place] [phone] Social History Tobacco Use Types Packs/Day Years [...] on filedocumented in this encounter Care Teams Replenishment Analyst Relationship Specialty Start Date End Date Doreen Workman DO PCP - General Internal Medicine 07/04/14 09/23/20 Adriana Sewell MD [address] [place] [address] PCP - General Internal Medicine 09/24/20 03/15/23 Geoffrey Parekh MD [address] [place] [address] 47866 PCP - General Family Practice 03/16/23 Fabio Forman MD Specialist Cardiology 06/04/20 Jeremias Yu NP [address] [place] [address]164 Nurse Practitioner Cardiology 12/15/20 Jocelin Cleveland NP [address] [place] [address] Cardiology 11/05/22 documented as of this encounter
== END 2025-03-19 10:27 | disposition home or self-care (01) ==
LOC: HO.LAB 10:26
PROVIDERS: PCP Family Medicine; Referring Provider Family Medicine; Visit Provider Registered Nurse
DX: F03.A0 Unspecified dementia, mild, without behavioral disturbance, psychotic disturbance, mood disturbance, and anxiety (principal); R25.1 Tremor, unspecified; G47.00 Insomnia, unspecified; G43.909 Migraine, unspecified, not intractable, without status migrainosus; Z79.899 Other long term (current) drug therapy
CPT/HCPCS: 36415; 84443